=== PATIENT | male | born 1980 | race African-American/Black ===

== ENCOUNTER 2020-06-28 09:24 | Inpatient (IN) | payer OTHER, MEDICAID, SELFPAY ==
[~2020-06-28] VITALS: Ht 175.3 cm; Wt 77.1 kg
--- NOTE | 2020-06-28 09:27 | NUR ---
PT AMBULATED TO BED 11 WITH STEADY GAIT
[2020-06-28 09:31] VITALS: BP 144/106
--- NOTE | 2020-06-28 09:34 | NUR ---
39 Y/O MALE BIB SELF C/O CHEST PAIN, SOB X YESTERDAY. PT WENT TO [facility] 06/25 FOR SAME COMPLAINT AND WAS DISCHARGED. PT RATES PAIN 7/10 THAT IS PRESSURE LIKE AND STATES IT FEELS LIKE "SOMEONE IS SITTING ON MY CHEST" AND NONRADIAITING. PT ALSO C/O N/V AND PAIN TO RIGHT SIDE OF NECK. SPO2 100% ON RA. CAP REFILL <3 SECONDS WITH NO EDEMA NOTED. ABD IS ROUND/ASCITIC WITH ACTIVE BOWEL SOUNDS X4 QUADS. PT A/O X4 WITH EVEN AND UNLABORED RESPIRATIONS. PT IN GOWN ATTACHED TO CAR HOPPER. PT LAYING IN BED WITH HOB ELEVATED, BRAKES LOCKED, X1 SIDERAIL UP. PMH:CHF, HTN ALLERGIES:MISOPROSTOL
--- NOTE | 2020-06-28 09:35 | NUR ---
DR DANIELS AT BEDSIDE EXAMINING PATIENT
[2020-06-28] MEDS ORDERED: ASPIRIN 325 MG TAB PO ONE (09:40)
[2020-06-28] MEDS ORDERED: NITROGLYCERIN 0.4 MG TAB SL ONE (09:40)
[2020-06-28] MEDS ORDERED: FUROSEMIDE 40 MG/4 ML VIAL IVP ONE (09:40)
--- NOTE | 2020-06-28 09:47 | NUR ---
LAB AT BEDSIDE FOR BLOOD DRAW
[2020-06-28 09:59] LABS: BASOPHILS % (AUTO) 0.4 % (0.0-2.0); EOSINOPHILS # (AUTO) 0.1 K/uL (0-0.4); EOSINOPHILS % (AUTO) 2.7 % (0.0-4.0); HEMATOCRIT 39.3 % (36-52); HEMOGLOBIN 12.5 g/dL (12.0-18.0); LYMPHOCYTES % (AUTO) 21.4 % (20.5-51.1); MEAN CORPUSCULAR HEMOGLOBIN 25 pg (27-31); MEAN CORPUSCULAR HGB CONC 32 g/dL (33-37); MEAN CORPUSCULAR VOLUME 77.1 fL (80-94); MONOCYTES # (AUTO) 0.9 K/uL (0.8-1.0); MONOCYTES % (AUTO) 19.4 % (1.7-9.3); NEUTROPHILS # (AUTO) 2.6 K/uL (1.8-7.7); NEUTROPHILS % (AUTO) 56.1 % (42.2-75.2); PLATELET COUNT (AUTO) 203 K/uL (140-450); RED CELL DISTRIBUTION WIDTH 19.9 % (11.6-13.7); WHITE BLOOD COUNT (AUTO) 4.6 K/uL (4.8-10.8)
[2020-06-28 10:05] LABS: ANION GAP 13.1 (8-16); CARBON DIOXIDE 24.8 mmol/L (21-32); CREATININE 1.4 mg/dL (0.6-1.3); POTASSIUM 3.9 mmol/L (3.5-5.1)
--- NOTE | 2020-06-28 10:20 | NUR ---
PT VOIDED 400ML ORANGE COLORED URINE. DR DANIELS MADE AWARE. URINE SAMPLE WALKED TO LAB ALONG WITH TOÑO LOREDO SAMPLE.
--- NOTE | 2020-06-28 10:31 | NUR ---
CRITICAL LAB VALUE: TROPONIN 0.081. DR DANIELS MADE AWARE
--- NOTE | 2020-06-28 10:31 | NUR ---
Dariusz toney in ED - 06/28/20 at 1335 by [email or web address] CRITICAL LAB: TROPONIN 0.08. DR DANIELS MADE AWARE
[2020-06-28] MEDS ORDERED: ATOR40TA PO (10:40)
[2020-06-28] MEDS ORDERED: FURO-570 PO (10:40)
[2020-06-28] MEDS ORDERED: LOSA100T1 PO (10:40)
[2020-06-28] MEDS ORDERED: SPIMDI INH (10:40)
[2020-06-28] MEDS ORDERED: ISOS10TA9 PO (10:40)
[2020-06-28] MEDS ORDERED: POTA10TE30 PO (10:40)
[2020-06-28] MEDS ORDERED: CARV12.5 PO (10:40)
[2020-06-28 11:44] LABS: APPEARANCE,URINE CLEAR (CLEAR); BILIRUBIN,URINE NEGATIVE (NEGATIVE); BLOOD, URINE TRACE-I (NEGATIVE); COLOR,URINE YELLOW (YELLOW); LEUKOCYTE ESTERASE ,URINE NEGATIVE (NEGATIVE); NITRITE, URINE NEGATIVE (NEGATIVE); UGLUCOSE NEGATIVE (NEGATIVE)
[2020-06-28 11:46] LABS: RBC,URINE NONE SEEN /HPF (0-5); WBC,URINE NONE SEEN /HPF (0-5)
--- NOTE | 2020-06-28 11:55 | NUR ---
PT C/O 7/[address] DANIELS MADE AWARE AND ORDERED 2ND DOSE OF NITRO. 0.4MG NITRO GIVEN SL. BP: 141/109 HR 105
--- NOTE | 2020-06-28 12:01 | NUR ---
PT REPORTS CHEST PAIN IS NOW 2-3. DR DANIELS MADE AWARE. HOLDING 3RD DOSE OF NITRO. BP:137/101 HR:91
--- NOTE | 2020-06-28 13:01 | NUR ---
EMPTIED 650ML OF CLEAR YELLOW URINE.
--- NOTE | 2020-06-28 13:34 | NUR ---
GAVE REPORT TO GALO THORNTON FOR ADMISSION TO TELEMETRY 120B. WILL CALL FOR ETA
--- NOTE | 2020-06-28 13:52 | NUR ---
DR. MACHADO (DETAIL DRAFTER) AT BEDSIDE EVALUATING PATIENT.
[2020-06-28] MEDS ORDERED: ACETAMINOPHEN 325 MG TAB PO PRN (14:05)
[2020-06-28] MEDS ORDERED: ONDANSETRON 4 MG/2 ML VIAL IM/IVP PRN (14:05)
[2020-06-28] MEDS ORDERED: guaiFENesin DM 200/20 MG-10 ML 10 ML UDC PO PRN (14:05)
[2020-06-28] MEDS ORDERED: NITROGLYCERIN 0.4 MG TAB SL PRN (14:05)
[2020-06-28] MEDS ORDERED: POTASSIUM CHLORIDE 10 MEQ TABER PO PRN (14:05)
[2020-06-28] MEDS ORDERED: DOCUSATE SODIUM 100 MG GELCAP PO PRN (14:05)
[2020-06-28] MEDS ORDERED: HYDROcodone/APAP 7.5/325 MG 1 TAB PO PRN (14:05)
--- NOTE | 2020-06-28 14:05 | NUR ---
PT GIVEN CARDIAC DIET LUNCH TRAY
--- NOTE | 2020-06-28 14:15 | NUR ---
RECEIVED TELEPHONE REPORT FROM ER NURSE NIDHI THORNTON.
[2020-06-28 14:37] LABS: FREE T4 (FREE THYROXINE) 1.04 ng/dL (0.76-1.46); MAGNESIUM 1.9 mg/dL (1.8-2.4); PHOSPHORUS 3.3 mg/dL (2.5-4.9); THYROID STIMULATING HORMONE 1.57 uIU/mL (0.34-3.74)
--- NOTE | 2020-06-28 14:37 | NUR ---
Patient will be admitted to care of DR MARTIN CARRILLO. Admited to TELEMETRY. Will go to room 120B. Belongings list completed. Report to GALO THORNTON.
[2020-06-28 14:39] LABS: PROTHROMBIN TIME 13.3 secs (10.8-13.4)
[2020-06-28 14:40] VITALS: BP 149/102
--- NOTE | 2020-06-28 14:40 | NUR ---
PT ARRIVED AT UNIT VIA GURNEY, AMBULATED TO BED, TOLERATED WELL, PT ON ROOM AIR, NO SOB NOTED, IV TO LEFT AC 18G PATENT INTACT, SL, PT DENIES ANY PAIN AT THIS MOMENT, INITIAL ASSESSMENT DONE, ALL SAFETY PRECAUTION DONE, MRSA SWAB TAKEN, V/S TAKEN, WNL, ORIENT PT TO ROOM, BED, CALL LIGHT, WILL CONTINUE TO MONITOR.
[2020-06-28 14:55] LABS: BARBITURATE, URINE NEGATIVE ng/ml (NEG <=200); BENZODIAZEPINE, URINE NEGATIVE ng/mL (NEG <=200); CANNABINOID, URINE POSITIVE ng/mL (NEG <=50); COCAINE, URINE NEGATIVE ng/mL (NEG <=300); OPIATE, URINE NEGATIVE ng/mL (NEG <=2000); PHENCYCLIDINE SCREEN,URINE NEGATIVE ng/mL (NEG <=25)
[2020-06-28 16:00] VITALS: BP 133/96
[2020-06-28] MEDS: FUROSEMIDE 40 MG/4 ML VIAL IVP SCH (16:34)
--- NOTE | 2020-06-28 16:37 | NUR ---
DUE MEDICATIONS LASIX GIVEN PT BP 139/101, HR 107, CONFIRMED WITH PHARMACY WHO STATED PER DR GERARDO GORDON TO GIVE BOTH FUROSEMIDE IV AND PO AT THE SAME TIME. PT TOLERATED WELL. WILL CONTINUE TO MONITOR.
[2020-06-28] MEDS ORDERED: FUROSEMIDE 40 MG TAB PO SCH (17:00)
--- NOTE | 2020-06-28 19:15 | NUR ---
RECEIVED BEDSIDE REPORT FROM DAY SHIFT NURSE FOR CONTINUITY OF CARE. PT IS AWAKE AND ALERT, A&OX4. SITTING UP IN HIGH FOWLERS POSITION IN SIDE LYING POSITION. ON RA WITH BREATHING UNLABORED. ON TELE MONITORING. PT IS AMBULATORY INDEPENDENTLY. SKIN IS WARM, DRY, AND INTACT. IV IS IN THE LEFT AC 18 GAUGE SALINE LOCKED. UNIVERSAL AND STANDARD PRECAUTIONS IN PLACE. PT IS STABLE. PLAN OF CARE DISCUSSED.
--- NOTE | 2020-06-28 19:27 | NUR ---
ENDORSED PT TO SURGICAL ENDOSCOPIST NURSE SHANTEL THORNTON FOR CONTINUOUS OF CARE.
[2020-06-28 20:00] VITALS: BP 121/83
[2020-06-28] MEDS: ATORVASTATIN 20 MG TAB PO SCH (20:15)
--- NOTE | 2020-06-28 20:15 | NUR ---
SPOKE TO STEPHANIE KELLY, WITH PERMISSION OF PT. UPDATED HER ON PLAN OF CARE. ALL QUESTIONS ANSWERED.
[2020-06-28] MEDS: carvediloL 12.5 MG TAB PO SCH (20:16)
[2020-06-28] MEDS ORDERED: FUROSEMIDE 40 MG/4 ML VIAL IVP SCH (21:00)
[2020-06-28] MEDS ORDERED: ZOLPIDEM 5 MG TAB PO PRN (21:00)
--- NOTE | 2020-06-28 21:30 | NUR ---
PT IS AWAKE AND WATCHING TV IN BED. DENIES PAIN OR SOB. O2 SAT IS 100%. NO RESPIRATORY DISTRESS NOTED. PT WAS EDUCATED ON THE FLUID RESTRICTION OF 1,000 ML A DAY AND PT VERBALIZED UNDERSTANDING. PT IS STABLE.
--- NOTE | 2020-06-28 23:00 | NUR ---
PT IS SITTING UP AT CHAIR AT BEDSIDE. PT IS WATCHING TV AND DENIES ANY COMPLAINTS AT THIS TIME.NO DISTRESS NOTED. PT IS STABLE.
[2020-06-29] VITALS: BP 136/74
--- NOTE | 2020-06-29 00:23 | NUR ---
PT WAS GIVEN A SANDWICH AND APPLE JUICE REQUESTED. REMINDED PT ABOUT FLUID RESTRICTION OF 1,000 ML A DAY AND HE VERBALIZED UNDERSTANDING. PT IS STABLE AT THIS TIME. BREATHING IS UNLABORED. DENIES ANY PAIN. WILL CONTINUE TO MONITOR.
--- NOTE | 2020-06-29 02:07 | NUR ---
PT IS SLEEPING IN SIDE LYING POSITION. NO DISTRESS NOTED. CHEST RISE AND FALL IS SYMMETRICAL. LIGHT IS ON FOR VISIBILITY AND BED IS IN THE LOWEST POSITION. WILL CONTINUE TO MONITOR.
[2020-06-29 04:00] VITALS: BP 121/89
--- NOTE | 2020-06-29 04:00 | NUR ---
ROUNDED ON PT. HE IS ASLEEP. BREATHING IS UNLABORED. NO SIGN OF PAIN. CALL LIGHT WITHIN REACH. WILL CONTINUE TO MONITOR.
[2020-06-29 05:43] LABS: BASOPHILS % (AUTO) 0.8 % (0.0-2.0); EOSINOPHILS # (AUTO) 0.2 K/uL (0-0.4); EOSINOPHILS % (AUTO) 4.5 % (0.0-4.0); HEMATOCRIT 35.9 % (36-52); HEMOGLOBIN 11.5 g/dL (12.0-18.0); LYMPHOCYTES % (AUTO) 19.6 % (20.5-51.1); MEAN CORPUSCULAR HEMOGLOBIN 25 pg (27-31); MEAN CORPUSCULAR HGB CONC 32 g/dL (33-37); MEAN CORPUSCULAR VOLUME 77.1 fL (80-94); MONOCYTES # (AUTO) 0.8 K/uL (0.8-1.0); MONOCYTES % (AUTO) 16.4 % (1.7-9.3); NEUTROPHILS % (AUTO) 58.7 % (42.2-75.2); PLATELET COUNT (AUTO) 187 K/uL (140-450); RED BLOOD CELL COUNT(AUTO) 4.66 MIL/uL (4.20-6.10); RED CELL DISTRIBUTION WIDTH 20.2 % (11.6-13.7); WHITE BLOOD COUNT (AUTO) 5.2 K/uL (4.8-10.8)
[2020-06-29 05:46] LABS: ANION GAP 10.9 (8-16); CREATININE 1.6 mg/dL (0.6-1.3); POTASSIUM 3.9 mmol/L (3.5-5.1)
--- NOTE | 2020-06-29 07:05 | NUR ---
RT CALLED TO THE BEDSIDE. INSTRUCTED TO PLACE ON OXYGEN AND THEY WOULD ARRIVE SHORTLY.
[2020-06-29 07:08] LABS: T4 (THYROXINE) 6.3 ug/dL (4.5-12.0)
--- NOTE | 2020-06-29 07:08 | NUR ---
PATIENT REPORTED SOB, LABORED BREATHING NOTED. RT NOTIFIED. PATIENT PLACED ON PORTABLE OXYGEN AT 4L NC. OXYGEN SAT AFTER OXYGEN APPLIED IS AT 100%. PATIENT EDUCATED ON LAYING ON HIS SIDE TO HELP WITH THE ASCITES.
--- NOTE | 2020-06-29 07:20 | NUR ---
ENDORSED PT TO DAY SHIFT NURSE FOR CONTINUITY OF CARE. PT IS AWAKE AND ALERT. PT IS CALM. O2 SAT IS 100% ON 4L O2 NC. PLAN OF CARE DISCUSSED.
[2020-06-29 08:00] VITALS: BP 136/106
--- NOTE | 2020-06-29 08:05 | NUR ---
RECEIVED REPORT FORM ER NURSE AT 0805 PATIENT ALERT AND AWAKE X4. RESPIRATION EVEN AND UNLABORED AT ROOM AIR . IV LC ON FFA 18 G . BED IN LOWER POSITION AND CLL LIGHT WITHIN REACH. Addendum: 06/29/20 at 0822 by Madie Ye RN WRONG ENTRY
[2020-06-29] MEDS ORDERED: ISOSORBIDE DINITRATE 10 MG TAB PO SCH (09:00)
--- NOTE | 2020-06-29 09:00 | NUR ---
SCHEDULE MEDICATION GIVEN PER MD ORDERED PATIENT TOLERATED WELL.
[2020-06-29] MEDS: ECOTRIN 81 MG TABEC PO SCH (09:24)
[2020-06-29] MEDS: LOSARTAN 25 MG TAB PO SCH (09:24)
[2020-06-29] MEDS: FUROSEMIDE 40 MG/4 ML VIAL IVP SCH ×2 (09:25→09:41)
[2020-06-29] MEDS: carvediloL 12.5 MG TAB PO SCH ×2 (09:39→20:24)
[2020-06-29] MEDS: PANTOPRAZOLE 40 MG TABEC PO SCH (09:39)
--- NOTE | 2020-06-29 10:15 | NUR ---
PT RESTING IN BED. NO SIGNS OF DISTRESS. WILL CONTINUE TO MONITOR
--- NOTE | 2020-06-29 11:05 | NUR ---
ADMINISTERED SCHED MED PRESCRIBED PER MD ORDER. PT TOLERATED WELL. MEDICATION EDUCATION PERFORMED. PT VERBALIZED UNDERSTANDING. SAFETY MEASURES IN PLACE. WILL CONTINUE TO MONITOR
[2020-06-29 12:00] VITALS: BP 139/80
--- NOTE | 2020-06-29 12:00 | NUR ---
VITAL SIGNS OBTAINED. PT IS STABLE. WILL CONTINUE TO MONITOR
--- NOTE | 2020-06-29 14:05 | NUR ---
PATIENT RESTING IN BED ,NO RESPIRATORY DISTRESS NOTED. SAFETY MEASURES IN PLACE. WILL CONTINUE TO MONITOR
--- NOTE | 2020-06-29 14:45 | NUR ---
DC PLANNIN YRS OLD MALE PATIENT WAS ADMITTED FROM HOME WITH A DX OF CHF, CHEST PAIN PT HAS A HX OF CHF HTN AND METH USE. CXR SHOWED CARDIOMEGALY WITH PULMONARY VASCULAR CONGESTION. RAPID COVID TEST NEGATIVE. STARTED DIURESIS THERAPY, IV ABX ROCEPHIN AND CONTINUED HOME MEDS. CONSULTED WITH CALL CENTER TRAINER. DARRIUS EID PT DOESN'T LIVE THERE AND HE IS A HOMELESS. SPOOL CLEANER HAND TO EVALUATE FOR HOMELESSNESS. CM TO FOLLOW Addendum: 06/30/20 at 1025 by Majo Noel CM GRISEL BELT PUNCHER: CAN NOT SCHEDULE PATIENT A FOLLOW UP APPOINTMENT. PATIENT DOES NOT HAVE A PCP ASSIGNED TO HIM AND HE IS HOMELESS. Addendum: 07/01/20 at 1038 by Majo Noel CM GRISEL SONG: PROVIDED PATIENT HOMELESS RESOURCES
--- NOTE | 2020-06-29 15:45 | NUR ---
PATIENT RESTING IN BED ,NO RESPIRATORY DISTRESS NOTED. SAFETY MEASURES IN PLACE. WILL CONTINUE TO MONITOR
[2020-06-29 16:00] VITALS: BP 123/79
--- NOTE | 2020-06-29 17:15 | NUR ---
PATIENT RESTING IN BED ,NO RESPIRATORY DISTRESS NOTED. SAFETY MEASURES IN PLACE. WILL CONTINUE TO MONITOR
--- NOTE | 2020-06-29 18:45 | NUR ---
PATIENT RESTING IN BED ,NO RESPIRATORY DISTRESS NOTED. SAFETY MEASURES IN PLACE. WILL CONTINUE TO MONITOR
--- NOTE | 2020-06-29 19:23 | NUR ---
ENDORSED TO TAPE DECK INSTALLER NURSE AT BED SIDE FOR CONTINUE FOR CARE . PATIENT IS STABLE.
--- NOTE | 2020-06-29 19:30 | NUR ---
RECEIVED REPORT FROM ZEENAT THORNTON DAYSHIFT NURSE AT BEDSIDE FOR CONTINUITY OF CARE, PT IN STABLE CONDITION.
[2020-06-29 20:00] VITALS: BP 133/90
--- NOTE | 2020-06-29 20:00 | NUR ---
PT IN BED RESTING WITH HOB UP, HE IS AROUSABLE TO NAME. PT IS AOX4 WITH 2 LITERS N/C FOR COMFORT. PT SKIN INTACT WITH LAC 18 GUAGE WHICH IS SALINE LOCKED AT THIS TIME. V/S FOLLOWS: T 97.7 P 100 R 18 B/P 133/90 02 95% WITH 2 LITERS VIA N/C. PT RESPIRATIONS ARE EVEN AND UNLABORED WITH LUNG SOUNDS DIMINISHED. PT DENIES PAIN AT THIS TIME ALL UNIVERSAL FALL PRECAUTIONS IN PLACE.
[2020-06-29] MEDS: ATORVASTATIN 20 MG TAB PO SCH (20:24)
--- NOTE | 2020-06-29 20:35 | NUR ---
PT SITTING UP IN BED WITH 2 LITERS ON RESPIRATIONS EVEN AND UNLABORED. PT GIVEN ORDERED PO COREG AND LIPITOR WELL HEPARIN SQ SHOT. EDUCATION REGARDING MEDICATION AND IT PURPOSES PROVIDED AT BEDSIDE. PT VERBALIZED UNDERSTANDING. PT ALSO GIVEN PO NORCO FOR C/O OF 4/10 CHEST PAIN . ALL OTHER REQUESTS ATTENDED BY STAFF AND ALL UNIVERSAL FALLS PRECAUTIONS IN PLACE. WILL CONTINUE TO MONITOR FOR PAIN RELIEF.
--- NOTE | 2020-06-29 22:30 | NUR ---
ROUNDS DONE, PT SITTING UP ON THE SIDE OF BED, WITHOUT ANY SUPPLEMENTAL 02 ON. PT DENIES ANY PAIN, HE WAS OFFERED AMBIEN FOR SLEEPING, BUT HE SAID "NOT YET." ALL UNIVERSAL FALLS PRECAUTIONS IN PLACE.
[2020-06-30] VITALS: BP 113/77
--- NOTE | 2020-06-30 00:30 | NUR ---
PT IN BED SLEEPING WITH 2 LITERS VIA MN/C, V/S FOLLOWS: T 97.6 P 75 R 22 B/P 113/77 02 99%. NO S/S OF PAIN OR DISTRESS NOTED, ALL ORDERED PRECAUTIONS IN PLACE.
--- NOTE | 2020-06-30 03:00 | NUR ---
ROUNDS DONE, PT IN BED ASLEEP, NO S/S OF PAIN OR DISTRESS NOTED. 02 RUNNING AT 2 LITERS VIA N/C. ALL ORDERED PRECAUTIONS IN PLACE.
[2020-06-30 04:00] VITALS: BP 95/69
--- NOTE | 2020-06-30 05:00 | NUR ---
ROUNDS DONE PT IN BED RESTING WITH EYES CLOSED BUT AROUSABLE TO NAME AND TOUCH. PT DENIES ANY PAIN , V/S FOLLOWS: T 97.5 P 88 R 18 B/P 95/69 02 99%. ALL ORDERED PRECAUTIONS IN PLACE.
[2020-06-30 05:29] LABS: BASOPHILS # (AUTO) 0.1 K/uL (0.00-0.22); BASOPHILS % (AUTO) 1.5 % (0.0-2.0); EOSINOPHILS # (AUTO) 0.1 K/uL (0-0.4); EOSINOPHILS % (AUTO) 3.3 % (0.0-4.0); HEMATOCRIT 36.2 % (36-52); HEMOGLOBIN 11.4 g/dL (12.0-18.0); LYMPHOCYTES # (AUTO) 1.5 K/uL (2.0-11.5); LYMPHOCYTES % (AUTO) 32.8 % (20.5-51.1); MEAN CORPUSCULAR HEMOGLOBIN 25 pg (27-31); MEAN CORPUSCULAR HGB CONC 32 g/dL (33-37); MEAN CORPUSCULAR VOLUME 77.4 fL (80-94); MONOCYTES # (AUTO) 0.8 K/uL (0.8-1.0); MONOCYTES % (AUTO) 17.8 % (1.7-9.3); NEUTROPHILS % (AUTO) 44.6 % (42.2-75.2); PLATELET COUNT (AUTO) 198 K/uL (140-450); RED BLOOD CELL COUNT(AUTO) 4.67 MIL/uL (4.20-6.10); RED CELL DISTRIBUTION WIDTH 20.1 % (11.6-13.7); WHITE BLOOD COUNT (AUTO) 4.5 K/uL (4.8-10.8)
--- NOTE | 2020-06-30 06:00 | NUR ---
PT AWAKE AND SITTING UP IN BED WITHOUT 02 RR EVEN AND UNLABORED. PT GIVEN REQUESTED SNACKS. ALL ORDERED PRECAUTIONS IN PLACE.
[2020-06-30 07:00] LABS: ANION GAP 10.5 (8-16); CARBON DIOXIDE 27.5 mmol/L (21-32); CREATININE 1.7 mg/dL (0.6-1.3)
--- NOTE | 2020-06-30 07:10 | NUR ---
RECEIVED REPORT FROM NIGHT NURSE PATIENT IS AAOX4 SITTING ON 2L OXYGEN VIA NC SATURATION AT 95-99%, AMBULATORY,LAST BOWEL MOVEMENT 06/30/20, ON STRICT I&O, SKIN INTACT, IV INTACT ON LEFT AC SALINE LOCK, CONTINENT,PENDING FOR ECHOCARDIOGRAM. SAFETY MEASURES IN PLACE AND CALL LIGHT WITHIN REACH. WILL CONTINUE TO MONITOR.
[2020-06-30 08:00] VITALS: BP 116/77
[2020-06-30] MEDS: ECOTRIN 81 MG TABEC PO SCH (08:46)
[2020-06-30] MEDS: PANTOPRAZOLE 40 MG TABEC PO SCH (08:46)
[2020-06-30] MEDS: LOSARTAN 25 MG TAB PO SCH (08:47)
[2020-06-30] MEDS: FUROSEMIDE 40 MG/4 ML VIAL IVP SCH ×2 (08:47→17:01)
[2020-06-30] MEDS: carvediloL 12.5 MG TAB PO SCH ×2 (08:47→20:40)
--- NOTE | 2020-06-30 08:55 | NUR ---
MEDICATION DUE GIVEN CHECK VITAL SIGNS PRIOR TO BP MEDICATION BP 116/77 MI 78 NO DISTRESS AND NO CHEST PAIN, DENIES ANY PAIN ON 2 LPM OXYGEN VIA NC. SAFETY MEASURES IN PLACE AND CALL LIGHT WITHIN REACH. WILL CONTINUE TO MONITOR.
--- NOTE | 2020-06-30 09:19 | NUR ---
PATIENT HAS BEEN SCREENED AND CATEGORIZED MODERATE NUTRITION RISK. PATIENT WILL BE SEEN WITHIN 3-5 DAYS OF ADMISSION. 07/01/20 07/03/[address]
--- NOTE | 2020-06-30 10:32 | NUR ---
MEDICATIONS DUE GIVEN INFUSING WELL.
[2020-06-30 12:00] VITALS: BP 113/83
--- NOTE | 2020-06-30 12:00 | NUR ---
MADE ROUNDS PATIENT IS RESTING VITAL SIGNS TAKEN BP 113/83 PA 80 NO CHEST PAIN AND SOB NOTED PT IS STABLE,
--- NOTE | 2020-06-30 15:00 | NUR ---
PATIENT IS RESTING AND EATING NO DISTRESS NOTED.
[2020-06-30 16:00] VITALS: BP 95/69
--- NOTE | 2020-06-30 17:04 | NUR ---
MEDICATION DUE GIVEN CHECK VITAL SIGNS BP 116/77 NJ 75 PT IS STABLE AND NO DISTRESS NOTED.
--- NOTE | 2020-06-30 19:23 | NUR ---
ENDORSED TO NIGHT NURSE FOR CONTINUITY OF CARE. PT IS STABLE.
--- NOTE | 2020-06-30 19:31 | NUR ---
RECEIVED REPORT FROM ANA MARIA THORNTON DAYSHIFT NURSE AT BEDSIDE FOR CONTINUITY OF CARE, PT IN STABLE CONDITION. PT LYING IN BED WITH 02 AT 2 LITERS VIA N/C. NO S/S OF PAIN OR DISTRESS. HE HAS A LEFT AC 18 GUAGE INTACT AND SALINE LOCKED. ALL UNIVERSAL FALLS PRECAUTIONS IN PLACE.
[2020-06-30 20:00] VITALS: BP 116/86
--- NOTE | 2020-06-30 20:00 | NUR ---
PT IN BED, HOB UP 45%, HE IS AOX4 AND ON ROOM AIR RESPIRATIONS ARE EVEN AND UNLABORED. ALL REQUESTED NEEDS ATTENDED. V/S FOLLOWS: T 97.1 P 92 R 18 B/P 116/86 02 100%. PT DENIES ANY PAIN OR DISCOMFORT ALL UNIVERSAL FALLS PRECAUTIONS IN PLACE.
[2020-06-30] MEDS: ATORVASTATIN 20 MG TAB PO SCH (20:40)
--- NOTE | 2020-06-30 21:00 | NUR ---
PT RECEIVED ORDERED MEDICATION OF COREG, LIPITOR AND HEPARIN SQ SHOT. EDUCATION REGARDING MEDICATION PROVIDED AT BEDSIDE, PT VERBALIZED UNDERSTANDING. ALL REQUESTED NEEDS ATTENDED BY STAFF AND ALL UNIVERSAL FALLS PRECAUTIONS IN PLACE.
--- NOTE | 2020-06-30 23:00 | NUR ---
PT LYING IN BED EYES CLOSED, BUT AROUSABLE TO NAME. HE IS ON ROOM AIR AND RESPIRATIONS EVEN AND UNLABORED. ALL REQUESTED NEEDS ATTENDED BY STAFF. AND ALL UNIVERSAL PRECAUTIONS IN PLACE.
[2020-07-01] VITALS: BP 123/83
--- NOTE | 2020-07-01 00:39 | NUR ---
PT SITTING UP IN BED ON ROOM AIR, RR EVEN AND UNLABORED. PT GIVEN REQUESTED AMBIEN AND SNACK TO HELP HIM SLEEP. V/S FOLLOWS: T 97.4 P 82 R 18 B/P 123/83 02 97%. ALL ORDERED PRECAUTIONS IN PLACE.
[2020-07-01 04:00] VITALS: BP 112/78
--- NOTE | 2020-07-01 04:45 | NUR ---
PT IN BED LYING DOWN HOB UP 45% PT IS ON ROOM AIR. NO S/S OF PAIN OR DISTRESS NOTED. V/S FOLLOWS: T 97.4 P 81 R 20 B/P 112/78 02 99% ON ROOM AIR. NO C/O VOICED AND ALL ORDERED PRECAUTIONS IN PLACE.
[2020-07-01 05:14] LABS: BASOPHILS # (AUTO) 0.1 K/uL (0.00-0.22); BASOPHILS % (AUTO) 1.5 % (0.0-2.0); EOSINOPHILS # (AUTO) 0.2 K/uL (0-0.4); EOSINOPHILS % (AUTO) 4.6 % (0.0-4.0); HEMATOCRIT 38.3 % (36-52); HEMOGLOBIN 12.2 g/dL (12.0-18.0); LYMPHOCYTES # (AUTO) 1.4 K/uL (2.0-11.5); LYMPHOCYTES % (AUTO) 27.7 % (20.5-51.1); MEAN CORPUSCULAR HEMOGLOBIN 25 pg (27-31); MEAN CORPUSCULAR HGB CONC 32 g/dL (33-37); MEAN CORPUSCULAR VOLUME 76.7 fL (80-94); MONOCYTES # (AUTO) 0.9 K/uL (0.8-1.0); MONOCYTES % (AUTO) 17.8 % (1.7-9.3); NEUTROPHILS # (AUTO) 2.4 K/uL (1.8-7.7); NEUTROPHILS % (AUTO) 48.4 % (42.2-75.2); PLATELET COUNT (AUTO) 203 K/uL (140-450); RED BLOOD CELL COUNT(AUTO) 4.99 MIL/uL (4.20-6.10); RED CELL DISTRIBUTION WIDTH 20.1 % (11.6-13.7)
[2020-07-01 05:23] LABS: CARBON DIOXIDE 28.9 mmol/L (21-32); CREATININE 1.8 mg/dL (0.6-1.3); POTASSIUM 3.9 mmol/L (3.5-5.1)
--- NOTE | 2020-07-01 07:25 | NUR ---
PT RECEIVED FROM HIGHWAY TRAFFIC CONTROL TECHNICIAN RN. PT RESTING IN BED NO S/S OF DISTRESS AT THIS TIME . PT ABLE TO MAKE NEEDS KNOWN.
[2020-07-01 08:00] VITALS: BP 120/85
[2020-07-01] MEDS: ECOTRIN 81 MG TABEC PO SCH (08:33)
[2020-07-01] MEDS: PANTOPRAZOLE 40 MG TABEC PO SCH (08:33)
[2020-07-01] MEDS: carvediloL 12.5 MG TAB PO SCH (08:33)
[2020-07-01] MEDS: LOSARTAN 25 MG TAB PO SCH (08:34)
--- NOTE | 2020-07-01 08:49 | NUR ---
MEDICATIONS GIVEN PER MD ORDER. PT EDUCATED AND VERBALIZED UNDERSTANDING. PT TOLERATED. NO S/S OF DISTRESS AT THIS TIME. CALL LIGHT WITHIN REACH. ALL SAFETY MEASURES ARE IN PLACE.
--- NOTE | 2020-07-01 10:02 | NUR ---
PT RESTING IN BED. PT REQUESTED SNACKS. SNACKS PROVIDED.
[2020-07-01] MEDS ORDERED: ISOS10TA9 PO (10:37)
[2020-07-01] MEDS ORDERED: FURO-570 PO (10:37)
[2020-07-01] MEDS ORDERED: LOSA100T1 PO (10:37)
[2020-07-01] MEDS ORDERED: ATOR40TA PO (10:37)
[2020-07-01] MEDS ORDERED: CARV12.5 PO (10:37)
[2020-07-01 11:33] VITALS: BP 120/85
[2020-07-01 12:00] VITALS: BP 121/75
--- NOTE | 2020-07-01 12:37 | NUR ---
PT DISCHARGE INSTRUCTIONS COMPLETE PT VERBALIZED UNDERSTANDING. ALL QUESTIONS ANSWERED . PT REQUESTED TO CALL NEXT OF [facility] TO [facility] TRANSPORTATION. [facility] CALLED . YARED STATED THAT SHE WOULD CALL BACK AND ARRANGE TRANSPORTATION. PT AWARE. PT STATED IF SHE DOES NOT PICK HIM UP HE WOULD LIKE BUS PASSES.
--- NOTE | 2020-07-01 13:49 | NUR ---
PT PROVIDED MEAL , AND A PACKET WITH RESOURCES AND SHELTERS PLACES TO CALL. PT VERBALIZED UNDERSTANDING. BUS PASS WAS GIVEN . PT WAS EDUCATED ON ALL THE RESOURCES.
--- NOTE | 2020-07-01 14:15 | NUR ---
PT LEFT UNIT VIA WHEELCHAIR. PT AMBULATED OFF WHEEL CHAIR TOWARDS BUS STOP. PT TOLERATED WELL. IV CANULA INTACT WITH REMOVAL. ID BAND REMOVED.
[2020-07-01] MEDS ORDERED: FUROSEMIDE 40 MG TAB PO SCH (17:00)
== END 2020-07-01 14:15 | disposition home or self-care (01) | DRG 871 ==
LOC: MED 09:24 → MTU 13:59
PROVIDERS: ADMIT Family Medicine; ATTEND Family Medicine
DX: A41.9 Sepsis, unspecified organism (principal); I21.A1 Myocardial infarction type 2; I50.43 Acute on chronic combined systolic (congestive) and diastolic (congestive) heart failure; J69.0 Pneumonitis due to inhalation of food and vomit; N17.0 Acute kidney failure with tubular necrosis; J96.00 Acute respiratory failure, unspecified whether with hypoxia or hypercapnia; G92 Toxic encephalopathy; I42.8 Other cardiomyopathies; I13.0 Hypertensive heart and chronic kidney disease with heart failure and stage 1 through stage 4 chronic kidney disease, or unspecified chronic kidney disease; Z20.822 Contact with and (suspected) exposure to COVID-19; F15.10 Other stimulant abuse, uncomplicated; E78.5 Hyperlipidemia, unspecified; F17.210 Nicotine dependence, cigarettes, uncomplicated; F12.10 Cannabis abuse, uncomplicated; N18.9 Chronic kidney disease, unspecified; I08.1 Rheumatic disorders of both mitral and tricuspid valves; Z71.51 Drug abuse counseling and surveillance of drug abuser; Z71.6 Tobacco abuse counseling
CPT/HCPCS: 36415; 71045; 80048; 80305; 81001; 82150; 83036; 83690; 83735; 83880; 84100; 84436; 84439; 84443; 84479; 84484; 85025; 85610; 85730; 87081; 93005; 96374; 99285; J0696; J1644; J1940; J7060

== ENCOUNTER 2020-07-10 15:08 | Inpatient (IN) | payer OTHER, MEDICAID, SELFPAY ==
[~2020-07-10] VITALS: Ht 175.3 cm; Wt 86.2 kg
[~2020-07-10 15:08] MED LIST: ATOR40TA PO; CARV12.5 PO; FURO-570 PO; ISOS10TA9 PO; LOSA100T1 PO; POTA10TE30 PO; SPIMDI INH
[2020-07-10 15:12] VITALS: BP 140/108
--- NOTE | 2020-07-10 15:17 | NUR ---
PT TAKEN TO LOBBY IN W/C.
--- NOTE | 2020-07-10 15:30 | NUR ---
39 Y/O MALE C/O CHEST PAIN 10/ INTERMITTENT DESCRIBES "PULLING" X4DAYS. PT STATES HE HAS A HERNIA AND HAS APPOINTMENT WITH PCP ON 07/13/20 FOR POSSIBLE SURGERY BUT TODAY SYMPTOMS WORENED. PT STATES +N/V 2 TIMES TODAY, DENIES FEVER/CHILLS. ABDOMEN IS SOFT, ROUND, TENDER TO PALPATION IN EPIGASTRIC AREA. BOWEL SOUNDS PRESENT X4, LAST BM 07/09/20. PMH: HTN, HERNIA ALLERGIES: MISOPROSTOL
--- NOTE | 2020-07-10 16:01 | NUR ---
RUBY ON RAILS WEB DEVELOPER WITH PT IN TRIAGE.
[2020-07-10 16:10] LABS: BASOPHILS # (AUTO) 0.1 K/uL (0.00-0.22); EOSINOPHILS # (AUTO) 0.2 K/uL (0-0.4); EOSINOPHILS % (AUTO) 4.1 % (0.0-4.0); MEAN CORPUSCULAR HEMOGLOBIN 24 pg (27-31); RED BLOOD CELL COUNT(AUTO) 4.98 MIL/uL (4.20-6.10); RED CELL DISTRIBUTION WIDTH 20.2 % (11.6-13.7)
--- NOTE | 2020-07-10 16:16 | NUR ---
PT W/C ASSISTED TO ER BED 7.
[2020-07-10 16:18] LABS: BASOPHILS % (AUTO) 1.8 % (0.0-2.0); HEMATOCRIT 37.9 % (36-52); LYMPHOCYTES % (AUTO) 24.5 % (20.5-51.1); MEAN CORPUSCULAR HGB CONC 32 g/dL (33-37); MEAN CORPUSCULAR VOLUME 76.2 fL (80-94); NEUTROPHILS # (AUTO) 1.9 K/uL (1.8-7.7); NEUTROPHILS % (AUTO) 46.1 % (42.2-75.2); PLATELET COUNT (AUTO) 230 K/uL (140-450); WHITE BLOOD COUNT (AUTO) 4.2 K/uL (4.8-10.8)
[2020-07-10 16:29] LABS: MONOCYTES % (AUTO) 23.5 % (1.7-9.3)
[2020-07-10 16:34] LABS: ANION GAP 11.1 (8-16); CARBON DIOXIDE 26.3 mmol/L (21-32); CREATININE 1.7 mg/dL (0.6-1.3); POTASSIUM 4.4 mmol/L (3.5-5.1); TOTAL BILIRUBIN 1.5 mg/dL (0.0-1.0)
[2020-07-10] MEDS ORDERED: MORPHINE SULFATE 4 MG/ML SYR IVP ONE (16:40)
[2020-07-10] MEDS ORDERED: ONDANSETRON 4 MG/2 ML VIAL IVP ONE (16:40)
--- NOTE | 2020-07-10 16:41 | NUR ---
TROPONIN 0.076--CRITICAL VALUE RECEIVED FROM LAB. DR VOGEL MADE AWARE.
--- NOTE | 2020-07-10 16:52 | NUR ---
PATIENT TAKEN TO CT VIA JALIL
--- NOTE | 2020-07-10 18:00 | NUR ---
PT ALERT AND AWAKE, BREATHING EVEN AND UNLABORED, NO DISTRESS NOTED.
[2020-07-10] MEDS ORDERED: FUROSEMIDE 40 MG/4 ML VIAL IVP ONE (18:10)
[2020-07-10] MEDS ORDERED: ASPIRIN 81 MG TAB.CHEW PO ONE (18:10)
--- NOTE | 2020-07-10 18:12 | NUR ---
GERTRUDE WAS SWABBED AND DROPPED OFF AT LAB WITH PHLEB.
--- NOTE | 2020-07-10 19:14 | NUR ---
REPORT GIVEN TO AUTUMN THORNTON, TRANSFER OF CARE AT THIS TIME
--- NOTE | 2020-07-10 19:15 | NUR ---
RECEIVED REPORT FROM MILADYS THORNTON FOR CONTINUITY OF CARE
--- NOTE | 2020-07-10 20:46 | NUR ---
Patient will be admitted to care of DR. ABDALLA. Admited to TELEMETRY. Will go to room 112A. Belongings list completed. Report to AB RN. PT ACCOMPANIED BY RN AND EMT DURING TRANSFER VIA [place].PT ALERT AND AWAKE, BREATHING EVEN AND UNLABORED, NO DISTRESS NOTED.
--- NOTE | 2020-07-10 20:55 | NUR ---
ADMITTED THIS 39 YEAR OLD MALE FROM ER PER JALIL WITH CC OF CHEST PAIN, SOB, AND LEFT INGUINAL HERNIA, AMBULATED TO BED WITH STEADY GAIT, PUT ON O2 2L VIA NC, VITAL SIGNS TAKEN, AAOX4, SAFETY MEASURES DONE, PLAN OF CARE DISCUSSED, CALL LIGHT WITHIN REACH.
[2020-07-10 21:00] VITALS: BP 131/104
[2020-07-10] MEDS: HYDROcodone/APAP 5/325 MG 1 TAB TAB PO PRN (22:00)
--- NOTE | 2020-07-10 22:00 | NUR ---
MEDICATED PRN FOR LEFT GROIN PAIN WITH NORCO ORDERED, SANDWICH PROVIDED, TOLERATED WELL, ALL NEEDS ATTENDED.
[2020-07-10] MEDS ORDERED: ACETAMINOPHEN 325 MG TAB PO PRN (22:05)
[2020-07-10] MEDS ORDERED: MORPHINE SULFATE 2 MG/ML SYR IVP PRN (22:05)
[2020-07-10] MEDS ORDERED: LORazepam 2 MG/ML VIAL IM/IVP PRN (22:05)
[2020-07-10] MEDS ORDERED: HYDROcodone/APAP 5/325 MG 1 TAB TAB PO PRN (22:05)
[2020-07-10] MEDS ORDERED: ZOLPIDEM 5 MG TAB PO PRN (22:05)
[2020-07-10] MEDS: NACL 0.9% 1,000 ML IV SCH (23:03)
--- NOTE | 2020-07-10 23:10 | NUR ---
PT SLEEPING, EASILY AROUSABLE, NO DISTRESS NOTED, IVF OF NS AT 40ML STARTED, REPORT GIVEN TO RN AB FOR CONTINUITY OF CARE.
--- NOTE | 2020-07-10 23:15 | NUR ---
Assumed care of the patient from [employer]. Patient asleep at this time but easy to aroused. Not in any distress. No complain at this time. Call light within reach. Will continue POC and monitoring.
[2020-07-11] VITALS: BP 151/103
--- NOTE | 2020-07-11 00:35 | NUR ---
MESSAGED DR ABDALLA REGARDING THE PATIENT LATEST SL=631/103, HR-85. AWAITING FOR MD TO CALL BACK.
--- NOTE | 2020-07-11 02:00 | NUR ---
PATIENT ASLEEP AT THIS TIME. VISIBLE SYMMETRICAL CHEST RISE AND FALL NOTED. NOT IN ANY DISTRESS AT THIS TIME. SAFETY MEASURES. IN PLACED.
[2020-07-11 04:00] VITALS: BP 129/101
--- NOTE | 2020-07-11 04:00 | NUR ---
PATIENT BP STILL HIGH 129/101, HR-91, AFEBRILE, SATING 99% ON 2L/NC. SR ON TELE MONITOR,HR-91. NO COMPLAIN AT THIS TIME. NOT IN ANY DISTRESS. CALL LIGHT WITHIN REACH. WILL PAGED DR ABDALLA REGARDING THE PT BP.
--- NOTE | 2020-07-11 05:59 | NUR ---
MESSAGED DR ABDALLA REGARDING THE PT BP 129/101, HR-91. AWAITING FOR MD TO RESPOND.
[2020-07-11 06:10] LABS: BASOPHILS % (AUTO) 0.7 % (0.0-2.0); EOSINOPHILS # (AUTO) 0.3 K/uL (0-0.4); HEMATOCRIT 38.9 % (36-52); HEMOGLOBIN 12.2 g/dL (12.0-18.0); LYMPHOCYTES # (AUTO) 1.5 K/uL (2.0-11.5); LYMPHOCYTES % (AUTO) 32.4 % (20.5-51.1); MEAN CORPUSCULAR HEMOGLOBIN 24 pg (27-31); MEAN CORPUSCULAR HGB CONC 31 g/dL (33-37); MEAN CORPUSCULAR VOLUME 77.2 fL (80-94); MONOCYTES # (AUTO) 1.1 K/uL (0.8-1.0); MONOCYTES % (AUTO) 24.8 % (1.7-9.3); NEUTROPHILS # (AUTO) 1.6 K/uL (1.8-7.7); NEUTROPHILS % (AUTO) 36.1 % (42.2-75.2); PLATELET COUNT (AUTO) 212 K/uL (140-450); RED BLOOD CELL COUNT(AUTO) 5.04 MIL/uL (4.20-6.10); WHITE BLOOD COUNT (AUTO) 4.5 K/uL (4.8-10.8)
--- NOTE | 2020-07-11 06:51 | NUR ---
PATIENT STABLE. NO ACUTE EVENT THROUGHOUT THE NIGHT. PATIENT NOT IN ANY DISTRESS AT THIS TIME. NO COMPLAIN FROM THE PATIENT. ALL NEEDS ATTENDED. CALL LIGHT WITHIN REACH. WILL ENDORSE THE PATIENT TO THE ONCOMING RN FOR CONTINUITY OF CARE.
--- NOTE | 2020-07-11 07:41 | NUR ---
ENDORSED PATIENT TO DAY RN , REGARDING THE PATIENT FOR CONTINUITY OF CARE. PATIENT STABLE. SIGNING OFF.
--- NOTE | 2020-07-11 07:52 | NUR ---
PATIENT RECEIVED FROM DELICATESSEN CLERK RN. PT RESTING IN BED EYES CLOSED. EASY TO AROUSE. BREATHING IS SYMMETRICAL AND UNLABORED. CALL LIGHT IS WITHIN REACH/ ALL SAFETY MEASURES ARE IN PLACE. NO S/S OF DISTRESS .
--- NOTE | 2020-07-11 07:59 | NUR ---
PT FOUND ON RA SPO2 98%, PT STATED HE JUST CAME BACK FOR THE BATHROOM AND FELT A LITTLE SOB, PLACED PT BACK ON 2LNC SPO2 100%, PT ALERT AND AWAKE, NO SIGNS OF RESP DISTRESS NOTED AT THIS TIME, WILL CONTINUE TO MONITOR.
--- NOTE | 2020-07-11 08:05 | NUR ---
MD START AT BEDSIDE.
[2020-07-11 08:55] LABS: ANION GAP 18.8 (8-16); CREATININE 1.8 mg/dL (0.6-1.3); POTASSIUM 4.8 mmol/L (3.5-5.1)
[2020-07-11] MEDS ORDERED: ASPIRIN 325 MG TABEC PO SCH (09:06)
[2020-07-11] MEDS ORDERED: ECOTRIN 81 MG TABEC PO SCH (09:07)
[2020-07-11] MEDS ORDERED: ATORVASTATIN 20 MG TAB PO SCH (09:08)
[2020-07-11 09:09] LABS: MAGNESIUM 1.9 mg/dL (1.8-2.4); PHOSPHORUS 4.8 mg/dL (2.5-4.9); THYROID STIMULATING HORMONE 2.86 uIU/mL (0.34-3.74); TOTAL BILIRUBIN 1.3 mg/dL (0.0-1.0)
[2020-07-11] MEDS ORDERED: carvediloL 12.5 MG TAB PO SCH (09:09)
[2020-07-11] MEDS ORDERED: FUROSEMIDE 40 MG/4 ML VIAL IVP SCH (09:09)
[2020-07-11] MEDS ORDERED: LOSARTAN 25 MG TAB PO SCH (09:10)
--- NOTE | 2020-07-11 09:30 | NUR ---
MEDICATIONS GIVEN PER MD ORDER. PT EDUCATED AND VERBALIZED UNDERSTANDING. PT TOLERATED WELL. CALL LIGHT IS WITHIN REACH. ALL SAFETY MEASURES ARE IN PLACE. NO S/S OF DISTRESS .
[2020-07-11 10:00] VITALS: BP 121/97
--- NOTE | 2020-07-11 10:39 | NUR ---
PT RESTING IN BED. PATIENT EDUCATED ON USING URINAL FOR STRICT i & o. PT VERBALIZED UNDERSTANDING. PT RE-ORIENTED TO ROOM AND HOW TO REACH ME IF HE NEEDS ANYTHING. NO S/S OF DISTRESS CALL LIGHT WITHIN REACH. ALL SAFETY MEASURES ARE IN PLACE
--- NOTE | 2020-07-11 11:11 | NUR ---
PATIENT HAS BEEN SCREENED AND CATEGORIZED HIGH NUTRITION RISK. PATIENT WILL BE SEEN WITHIN 1-2 DAYS OF ADMISSION. 07/11/20 - 07/12/20 FR[address]ERRERA MBA, RD
[2020-07-11 11:56] LABS: PROTHROMBIN TIME 13.8 secs (10.8-13.4)
[2020-07-11 12:00] VITALS: BP 126/96
--- NOTE | 2020-07-11 12:10 | NUR ---
PT ROUNDED ON PT SITTING IN BED EATING . BREATHING IS SYMMETRICAL AND UNLABORED. CALL LIGHT IS WITHIN REACH/ ALL SAFETY MEASURES ARE IN PLACE. NO S/S OF DISTRESS .
--- NOTE | 2020-07-11 14:48 | NUR ---
PT GIVEN SNACK PER REQUEST. BREATHING IS SYMMETRICAL AND UNLABORED. CALL LIGHT IS WITHIN REACH/ ALL SAFETY MEASURES ARE IN PLACE. NO S/S OF DISTRESS .
[2020-07-11 16:00] VITALS: BP 133/84
--- NOTE | 2020-07-11 16:42 | NUR ---
PT RESTIN IN BED. NO S/S OF DISTRESS AT THIS TIME
--- NOTE | 2020-07-11 17:28 | NUR ---
DR. PRADO AT BEDSIDE
[2020-07-11] MEDS: FUROSEMIDE 40 MG/4 ML VIAL IVP SCH (17:35)
--- NOTE | 2020-07-11 19:10 | NUR ---
WILL ENDORSE TO ORE ROASTER NURSE FOR CONTINUITY OF CARE.
--- NOTE | 2020-07-11 19:11 | NUR ---
RECEIVED PATIENT FROM AM NURSE FOR CONTINUITY OF CARE. PATIENT IS A/A/O X4. RESTING IN BED, AROUSABLE TO VOICE. RESPIRATORY EVEN AND UNLABORED, ON 2L OXYGEN VIA NC. SKIN WARM, DRY, NON-DIAPHORETIC. IV ON RIGHT AC 20G, IS INFUSING FLUID @40ML/HR. PATIENT DENIES ANY PAIN OR DISCOMFORT AT THIS TIME. ABLE TO MAKE NEEDS KNOWN. PLAN OF CARE DISCUSSED, PATIENT VERBALIZED UNDERSTANDING. CALL LIGHT WITHIN REACH. WILL CONTINUE TO MONITOR.
[2020-07-11 20:00] VITALS: BP 136/94
[2020-07-11] MEDS: carvediloL 12.5 MG TAB PO SCH (20:42)
--- NOTE | 2020-07-11 20:42 | NUR ---
SCHEDULE MEDICATION GIVEN WITH EDUCATION. PATIENT VERBALIZED UNDERSTANDING. NO SIGN OF DISTRESS NOTE. PATIENT TOLERATED WELL. CALL LIGHT WITHIN REACH. WILL CONTINUE TO MONITOR.
[2020-07-11] MEDS: NACL 0.9% 1,000 ML IV SCH (21:53)
--- NOTE | 2020-07-11 22:00 | NUR ---
ROUND CHECK. PATIENT ASKED TO HAVE PUDDING AND SANDWICH. PATIENT SATISFIED. NO SIGN OF DISTRESS NOTED. CALL LIGHT WITHIN REACH. WILL CONTINUE TO MONITOR.
[2020-07-11 23:07] LABS: APPEARANCE,URINE CLEAR (CLEAR); BILIRUBIN,URINE NEGATIVE (NEGATIVE); BLOOD, URINE NEGATIVE (NEGATIVE); COLOR,URINE YELLOW (YELLOW); LEUKOCYTE ESTERASE ,URINE NEGATIVE (NEGATIVE); NITRITE, URINE NEGATIVE (NEGATIVE); PH,URINE 5.5 (5.0-9.0); UGLUCOSE NEGATIVE (NEGATIVE)
[2020-07-11 23:21] LABS: BARBITURATE, URINE NEGATIVE ng/ml (NEG <=200); BENZODIAZEPINE, URINE NEGATIVE ng/mL (NEG <=200); CANNABINOID, URINE POSITIVE ng/mL (NEG <=50); COCAINE, URINE NEGATIVE ng/mL (NEG <=300); OPIATE, URINE POSITIVE ng/mL (NEG <=2000); PHENCYCLIDINE SCREEN,URINE NEGATIVE ng/mL (NEG <=25)
[2020-07-12] VITALS: BP 113/79
--- NOTE | 2020-07-12 | NUR ---
ROUND CHECK. PATIENT IS SLEEPING, CHEST RISE AND FALL NOTED. NO SIGN OF DISTRESS NOTED. CALL LIGHT WITHIN REACH. WILL CONTINUE TO MONITOR.
--- NOTE | 2020-07-12 02:00 | NUR ---
PATIENT IS AWAKE, SITTING UP IN BED. NO SIGN OF DISTRESS NOTED. CALL LIGHT WITHIN REACH. WILL CONTINUE TO MONITOR.
[2020-07-12 04:00] VITALS: BP 124/84
--- NOTE | 2020-07-12 04:00 | NUR ---
ROUND CHECK. PATIENT IS RESTING IN BED, AROUSABLE TO VOICE. NO SIGN OF DISTRESS NOTED. CALL LIGHT WITHIN REACH. WILL CONTINUE TO MONITOR.
--- NOTE | 2020-07-12 06:00 | NUR ---
ROUND CHECK. PATIENT IS SLEEPING, CHEST RISE AND FALL NOTED. NO SIGN OF RESPIRATORY DISTRESS NOTED. CALL LIGHT WITHIN REACH. WILL CONTINUE TO MONITOR.
[2020-07-12 06:02] LABS: BASOPHILS % (AUTO) 0.8 % (0.0-2.0); EOSINOPHILS # (AUTO) 0.3 K/uL (0-0.4); EOSINOPHILS % (AUTO) 5.3 % (0.0-4.0); HEMATOCRIT 36.1 % (36-52); HEMOGLOBIN 11.3 g/dL (12.0-18.0); LYMPHOCYTES # (AUTO) 1.4 K/uL (2.0-11.5); LYMPHOCYTES % (AUTO) 26.2 % (20.5-51.1); MEAN CORPUSCULAR HEMOGLOBIN 24 pg (27-31); MEAN CORPUSCULAR HGB CONC 31 g/dL (33-37); MONOCYTES # (AUTO) 0.8 K/uL (0.8-1.0); NEUTROPHILS # (AUTO) 2.9 K/uL (1.8-7.7); NEUTROPHILS % (AUTO) 52.7 % (42.2-75.2); PLATELET COUNT (AUTO) 204 K/uL (140-450); RED BLOOD CELL COUNT(AUTO) 4.74 MIL/uL (4.20-6.10); RED CELL DISTRIBUTION WIDTH 19.9 % (11.6-13.7); WHITE BLOOD COUNT (AUTO) 5.4 K/uL (4.8-10.8)
[2020-07-12 06:17] LABS: ANION GAP 11.9 (8-16); CARBON DIOXIDE 29.2 mmol/L (21-32); CREATININE 1.7 mg/dL (0.6-1.3); POTASSIUM 4.1 mmol/L (3.5-5.1)
[2020-07-12 06:29] LABS: MAGNESIUM 1.5 mg/dL (1.8-2.4); PHOSPHORUS 4.1 mg/dL (2.5-4.9)
--- NOTE | 2020-07-12 07:10 | NUR ---
ENDORSED PATIENT TO AM NURSE FOR CONTINUITY OF CARE. PATIENT IS STABLE.
--- NOTE | 2020-07-12 07:11 | NUR ---
PATIENT ENDORSED BY ASSISTANT TEACHER PRIMARY FOR CONTINUITY OF CARE, POC DISCUSSED. PATIENT RESTING IN BED WITH A RIGHT AC 20 GAUGE RUNNING 40ML/HR OF NS. PATIENT IS ALERT AND ORIENTED X4, COMPLAINING OF PAIN 6/10. PATIENT IS CURRENTLY ON ROOM AIR, WITH NO COMPLAINTS OF SOB, CHEST RISING AND FALLING EVEN AND UNLABORED. PATIENT ON A STRICT I&O WITH A URINAL AT BEDSIDE. PATIENT IN STABLE CONDITION, ALL SAFETY MEASURES IN PLACE, WILL CONTINUE TO MONITOR.
--- NOTE | 2020-07-12 07:45 | NUR ---
MEDICATED PATIENT PER PRN ORDER FOR 6/10 PAIN. EDUCATION PROVIDED TO PATIENT, VERBALIZED UNDERSTANDING. PATIENT IN STABLE CONDITION, WILL CONTINUE TO MONITOR.
[2020-07-12] MEDS: HYDROcodone/APAP 5/325 MG 1 TAB TAB PO PRN (07:46)
[2020-07-12 08:00] VITALS: BP 129/92
[2020-07-12] MEDS: ECOTRIN 81 MG TABEC PO SCH (08:39)
[2020-07-12] MEDS: ATORVASTATIN 20 MG TAB PO SCH (08:40)
[2020-07-12] MEDS: carvediloL 12.5 MG TAB PO SCH ×2 (08:40→20:10)
[2020-07-12] MEDS: FUROSEMIDE 40 MG/4 ML VIAL IVP SCH ×2 (08:41→17:05)
--- NOTE | 2020-07-12 08:53 | NUR ---
SCHEDULED MEDICATION ADMINISTERED. PATIENT EDUCATION PROVIDED. PATIENT VERBALIZED UNDERSTANDING. ASSESSMENT COMPLETE, LUNG SOUNDS CLEAR, NO EDEMA NOTED IN LOWER EXTREMITIES, +2 PEDAL PULSES. NS RUNNING AT 40 ML/HR. INGUINAL HERNIA ON LEFT GROIN. DR. CARRILLO AT BEDSIDE, ASSESSED HERNIA. PATIENT IN STALE CONDITION, SAFETY MEASURES IN PLACE. WILL CONTINUE TO MONITOR.
--- NOTE | 2020-07-12 08:57 | NUR ---
PATIENT HAS BEEN RE-SCREENED AND CATEGORIZED MODERATE NUTRITION RISK. PATIENT WILL BE SEEN WITHIN 3-5 DAYS OF ADMISSION. 07/13/20 07/15/[address]
[2020-07-12] MEDS: LOSARTAN 25 MG TAB PO SCH (09:04)
--- NOTE | 2020-07-12 09:50 | NUR ---
ROUNDED ON PATIENT. PATIENT RESTING COMFORTABLY IN BED WITH NO SIGNS OF ACUTE DISTRESS. CHEST RISING AND FALLING EVEN AND UNLABORED. PATIENT ON ROOM AIR WITH NO COMPLAINTS OF SOB. SAFETY MEASURES IN PLACE, CALL LIGHT WITHIN REACH, WILL CONTINUE TO MONITOR.
--- NOTE | 2020-07-12 10:49 | NUR ---
PATIENT COMPLAINED OF PAIN 8/10 IN LEFT GROIN. PRN PAIN MEDICATION ADMINISTERED PER MD ORDERS. EDUCATION PROVIDED TO PATIENT, PATIENT VERBALIZED UNDERSTANDING. PATIENT TOLERATED ADMINISTRATION. PATIENT OUTPUT MEASURED AND EMPTIED. SAFETY MEASURES IN PLACE, CALL LIGHT WITHIN REACH. WILL CONTINUE TO MONITOR AND REASSESS PAIN.
--- NOTE | 2020-07-12 11:49 | NUR ---
PATIENT IS RESTING COMFORTABLE WITH NO SIGNS OF ACUTE DISTRESS. SAFETY MEASURES IN PLACE, CALL LIGHT WITHIN REACH. WILL CONTINUE TO MONITOR.
[2020-07-12 12:00] VITALS: BP 98/74
--- NOTE | 2020-07-12 13:18 | NUR ---
ROUNDED ON PATIENT. PATIENT RESTING COMFORTABLY IN BED. SAFETY MEASURES IN PLACE. CALL LIGHT WITHIN REACH. WILL CONTINUE TO MONITOR.
--- NOTE | 2020-07-12 14:45 | NUR ---
ROUNDED ON PATIENT. PATIENT ASLEEP IN BED ON HIS LEFT SIDE. NO SIGNS OF ACUTE DISTRESS, SAFETY MEASURES IN PLACE. CALL LIGHT WITHIN REACH. WILL CONTINUE TO MONITOR.
--- NOTE | 2020-07-12 15:12 | NUR ---
PT RESTING , WATCHING T.V NO SIGN OF DISTRESS, CALL LIGHT MONITOR WITHIN REACH. ALL SAFETY MEASURES IN PLACE.
[2020-07-12 16:00] VITALS: BP 113/87
--- NOTE | 2020-07-12 16:47 | NUR ---
ROUNDED ON PATIENT. PATIENT RESTING COMFORTABLY IN BED, WITH CALL LIGHT WITHIN REACH. SAFETY MEASURES IN PLACE. WILL CONTINUE TO MONITOR.
--- NOTE | 2020-07-12 17:14 | NUR ---
SCHEDULED MEDICATION ADMINISTERED, PATIENT EDUCATION PROVIDED. PATIENT VERBALIZED UNDERSTANDING. PATIENT TOLERATED MEDICATION ADMINISTRATION, IV SITE CLEAN, DRY AND INTACT. NO PAIN REPORTED AT IV SITE. SAFETY MEASURES IN PLACE, WITH CALL LIGHT WITHIN REACH. WILL CONTINUE TO MONITOR.
--- NOTE | 2020-07-12 17:22 | NUR ---
PT ASKED FOR FOOD, CONTACTED FNS AND OBTAINED TURKEY SANDWICH FOR PT .
--- NOTE | 2020-07-12 19:26 | NUR ---
PT ENDORSED TO CARE NURSE RN FOR CONTINUITY OF CARE. POC DISCUSSED. PT IN STABLE CONDITION.
--- NOTE | 2020-07-12 19:27 | NUR ---
RECEIVED BEDSIDE ENDORSEMENT FROM AM SHIFT RN. PATIENT IS ASLEEP, NO DISTRESS, RESPIRATION EVEN AND UNLABORED, IVF INFUSING, AMBULATORY, SAFETY MEASURES IN PLACE, PLAN OF CARE DISCUSSED, WILL CONTINUE TO MONITOR, CALL LIGHT WITHIN REACH.
--- NOTE | 2020-07-12 19:38 | NUR ---
PT WAS SEEN AND ASSESSED. FOUND PT ON ROOM AIR WITH SPO2 98%. PT IS IN NO RESPIRATORY DISTRESS AT THIS TIME. WILL CONTINUE TO MONITOR PT.
[2020-07-12 20:00] VITALS: BP 131/89
[2020-07-12] MEDS: NACL 0.9% 1,000 ML IV SCH (20:11)
--- NOTE | 2020-07-12 20:20 | NUR ---
V/S TAKEN, COREG PO GIVEN ORDERED, MED EDUCATION PROVIDED, VERBALIZED UNDERSTANDING, TOLERATED WELL, CALL LIGHT WITHIN REACH.
[2020-07-12] MEDS ORDERED: MAGNESIUM OXIDE 400 MG TAB PO SCH (21:55)
--- NOTE | 2020-07-12 22:10 | NUR ---
GAVE HALIMA SNACK AND A PUDDING TO PT REQUESTED BY PATIENT.
[2020-07-13] VITALS: BP 120/83
--- NOTE | 2020-07-13 00:47 | NUR ---
V/S TAKEN AND RECORDED, KEPT CLEAN, DRY AND COMFORTABLE, CALL LIGHT WITHIN REACH.
--- NOTE | 2020-07-13 02:00 | NUR ---
ASLEEP, NOTED CHEST RISE, WILL CONTINUE TO MONITOR, CALL LIGHT WITHIN REACH.
[2020-07-13 04:00] VITALS: BP 113/81
--- NOTE | 2020-07-13 04:00 | NUR ---
V/S TAKEN, FIXED IV SITE, REINFORCED DRESSING, IV CANNULA PATENT.
--- NOTE | 2020-07-13 07:15 | NUR ---
RECEIVED REPORT FOR NIGHT CUSTODIAN RN FOR CONTINUITY OF CARE. AOX4, RESTING IN BED, ABLE TO MAKE NEEDS KNOWN. SR ON MONITOR. ON RA. VITAL SIGNS STABLE. CONTINENT, ABLE TO AMBULATE, USES URINAL FOR STRICT I&OS. IV CLEAN, DRY, AND INTACT, ON RAC 20 G INFUSING NS AT 40 ML/HR. SKIN INTACT. DRAMATIC ART TEACHER IN PLACE. SAFETY MEASURES IN PLACE. BED IN LOW POSITION, BED LOCKED. CALL LIGHT WITHIN REACH. WILL CONTINUE TO MONITOR.
--- NOTE | 2020-07-13 07:45 | NUR ---
RECEIVED REPORT FOR BUSINESS SERVICES ADMINISTRATOR RN FOR CONTINUITY OF CARE. AOX4, RESTING IN BED. SR TO ST ON MONITOR. TRACH TO VENT FIO2 28 TV 475, RATE 18, PEEP 5. VITAL SIGNS STABLE. INCONTINENT, WEARS DIAPER. LAST BOWEL MOVEMENT 07/13. IV CLEAN, DRY, AND INTACT, ON LW 22 G INFUSING NS AT 80 ML/HR. SKIN INTACT. SECTION CUTTER IN PLACE. SAFETY MEASURES IN PLACE. BED IN LOW POSITION, BED LOCKED. HEAD OF BED AT 30 DEGREES. WILL CONTINUE TO MONITOR.
--- NOTE | 2020-07-13 07:51 | NUR ---
PATIENT IS STABLE, NO DISTRESS, DENIES PAIN, ALL NEEDS ATTENDED, KEPT COMFORTABLE, CALL LIGHT WITHIN REACH, BEDSIDE ENDORSEMENT GIVEN TO AM SHIFT RN FOR CONTINUITY OF CARE.
[2020-07-13 08:00] VITALS: BP 110/86
[2020-07-13] MEDS ORDERED: FUROSEMIDE 40 MG TAB PO SCH ×2 (08:30→17:00)
[2020-07-13] MEDS ORDERED: MAGNESIUM OXIDE 400 MG TAB PO SCH (09:00)
[2020-07-13] MEDS: ECOTRIN 81 MG TABEC PO SCH (09:25)
[2020-07-13] MEDS: ATORVASTATIN 20 MG TAB PO SCH (09:25)
[2020-07-13] MEDS: LOSARTAN 25 MG TAB PO SCH (09:25)
[2020-07-13] MEDS: carvediloL 12.5 MG TAB PO SCH (09:25)
--- NOTE | 2020-07-13 09:30 | NUR ---
ADMINISTERED SCHEDULED AM MEDICATIONS. ORAL CARE, HYGIENE CARE, AND CHG BATH PROVIDED. PATIENT IS IN NO SIGNS OF DISTRESS OR PAIN. ABLE TO MAKE NEEDS KNOWN. CALL LIGHT WITHIN REACH. WILL CONTINUE TO MONITOR.
--- NOTE | 2020-07-13 11:05 | NUR ---
PATIENT IS IN NO SIGNS OF DISTRESS OR PAIN. ABLE TO MAKE NEEDS KNOWN. CALL LIGHT WITHIN REACH. WILL CONTINUE TO MONITOR.
[2020-07-13 12:00] VITALS: BP 127/86
[2020-07-13 13:10] VITALS: BP 127/86
--- NOTE | 2020-07-13 14:40 | NUR ---
DISCHARGE INSTRUCTIONS GIVEN. PATIENT VERBALIZED UNDERSTANDING. DRESS APPROPRIATELY FOR DISCHARGE. IVS REMOVED. TELE BOX REMOVED. PATIENT DIRECTED OUTSIDE.
== END 2020-07-13 14:40 | disposition home or self-care (01) | DRG 280 ==
LOC: MED 15:08 → MTU 18:27
PROVIDERS: ADMIT Family Medicine; ATTEND Family Medicine
DX: I13.0 Hypertensive heart and chronic kidney disease with heart failure and stage 1 through stage 4 chronic kidney disease, or unspecified chronic kidney disease (principal); N17.0 Acute kidney failure with tubular necrosis; I21.A1 Myocardial infarction type 2; J96.01 Acute respiratory failure with hypoxia; I50.43 Acute on chronic combined systolic (congestive) and diastolic (congestive) heart failure; R18.8 Other ascites; K40.31 Unilateral inguinal hernia, with obstruction, without gangrene, recurrent; I42.8 Other cardiomyopathies; N18.9 Chronic kidney disease, unspecified; Z20.822 Contact with and (suspected) exposure to COVID-19; E78.5 Hyperlipidemia, unspecified; F17.210 Nicotine dependence, cigarettes, uncomplicated; F15.10 Other stimulant abuse, uncomplicated; I08.1 Rheumatic disorders of both mitral and tricuspid valves; Z79.899 Other long term (current) drug therapy; Z71.51 Drug abuse counseling and surveillance of drug abuser; Z71.6 Tobacco abuse counseling
CPT/HCPCS: 36415; 71045; 76705; 76770; 80048; 80053; 80305; 81003; 83036; 83735; 83880; 84100; 84300; 84436; 84443; 84484; 85025; 85610; 85730; 87081; 87205; 93005; 96374; 96375; 99285; J1940; J2270; J2405

== ENCOUNTER 2020-09-30 16:37 | Inpatient (IN) | payer OTHER, MEDICAID ==
[~2020-09-30] VITALS: Ht 175.3 cm; Wt 76.7 kg
[2020-09-30 16:57] VITALS: BP 122/71
--- NOTE | 2020-09-30 17:00 | NUR ---
Pt taken to bed 05 via wheelchair.
--- NOTE | 2020-09-30 18:09 | NUR ---
39 Y/O M, PATIENT PRESENTS TO ED WITH CHEST PAIN WITH PRESSURE SENSATION THAT STARTED LAST NIGHT ACCOMPANIED BY SOB, NAUSEA AND DIFFICULTY BREATHING. DENIES VOMITING AND DIARRHEA; SKIN IS PINK/WARM/DRY; AAOX4 WITH EVEN AND STEADY GAIT; LUNGS CLEAR BL; HR EVEN AND TACHY; PT DENIES ANY FEVER OR COUGH AT THIS TIME; PATIENT STATES PAIN OF 8/10 AT THIS TIME; PATIENT POSITIONED FOR COMFORT; HOB ELEVATED; BEDRAILS UP X2; BED DOWN. ER MD MADE AWARE OF PT STATUS. PMH: HTN, ASTHMA ALLERGY: MISOPROSTOL
[2020-09-30] MEDS ORDERED: FUROSEMIDE 40 MG/4 ML VIAL IVP ONE (18:15)
[2020-09-30 18:33] LABS: BASOPHILS # (AUTO) 0.1 K/uL (0.00-0.22); BASOPHILS % (AUTO) 1.1 % (0.0-2.0); EOSINOPHILS # (AUTO) 0.2 K/uL (0-0.4); EOSINOPHILS % (AUTO) 2.8 % (0.0-4.0); HEMATOCRIT 40.9 % (36-52); HEMOGLOBIN 12.8 g/dL (12.0-18.0); LYMPHOCYTES # (AUTO) 0.8 K/uL (2.0-11.5); LYMPHOCYTES % (AUTO) 11.2 % (20.5-51.1); MEAN CORPUSCULAR HEMOGLOBIN 25 pg (27-31); MEAN CORPUSCULAR HGB CONC 31 g/dL (33-37); MEAN CORPUSCULAR VOLUME 79.2 fL (80-94); MONOCYTES # (AUTO) 0.9 K/uL (0.8-1.0); MONOCYTES % (AUTO) 12.2 % (1.7-9.3); NEUTROPHILS # (AUTO) 5.3 K/uL (1.8-7.7); NEUTROPHILS % (AUTO) 72.7 % (42.2-75.2); PLATELET COUNT (AUTO) 230 K/uL (140-450); RED BLOOD CELL COUNT(AUTO) 5.16 MIL/uL (4.20-6.10); RED CELL DISTRIBUTION WIDTH 25.4 % (11.6-13.7); WHITE BLOOD COUNT (AUTO) 7.3 K/uL (4.8-10.8)
[2020-09-30 18:49] LABS: ALBUMIN 3.5 g/dL (3.4-5.0); ANION GAP 14.1 (8-16); CARBON DIOXIDE 25.3 mmol/L (21-32); CREATININE 1.7 mg/dL (0.6-1.3); POTASSIUM 4.4 mmol/L (3.5-5.1); TOTAL BILIRUBIN 1.9 mg/dL (0.0-1.0)
--- NOTE | 2020-09-30 19:26 | NUR ---
REPORT GIVEN TO ELISE THORNTON
--- NOTE | 2020-09-30 19:26 | NUR ---
Report received from Maggy THORNTON for continuity of care.
--- NOTE | 2020-09-30 20:00 | NUR ---
patient feeling dizziness. ERMD made aware
--- NOTE | 2020-09-30 20:32 | NUR ---
patient feeling SOB even with 2L O2, patient also feeling 8/10 pain on the sternum feels like pressure. ERMD made aware
[2020-09-30] MEDS ORDERED: ASPIRIN 81 MG TAB.CHEW PO ONE (20:35)
--- NOTE | 2020-09-30 20:35 | NUR ---
provided patient apple juice
[2020-09-30 20:47] LABS: BARBITURATE, URINE NEGATIVE ng/ml (NEG <=200); BENZODIAZEPINE, URINE NEGATIVE ng/mL (NEG <=200); CANNABINOID, URINE POSITIVE ng/mL (NEG <=50); COCAINE, URINE NEGATIVE ng/mL (NEG <=300); OPIATE, URINE NEGATIVE ng/mL (NEG <=2000); PHENCYCLIDINE SCREEN,URINE NEGATIVE ng/mL (NEG <=25)
[2020-09-30] MEDS ORDERED: ACETAMINOPHEN 325 MG TAB PO PRN (21:10)
[2020-09-30] MEDS ORDERED: ZOLPIDEM 5 MG TAB PO PRN (21:10)
[2020-09-30] MEDS ORDERED: LORazepam 2 MG/ML VIAL IM/IVP PRN (21:10)
[2020-09-30] MEDS ORDERED: DOCUSATE SODIUM 100 MG GELCAP PO PRN (21:10)
[2020-09-30] MEDS ORDERED: ONDANSETRON 4 MG/2 ML VIAL IVP PRN (21:10)
[2020-09-30] MEDS ORDERED: MORPHINE SULFATE 2 MG/ML SYR IVP PRN (21:10)
[2020-09-30] MEDS ORDERED: HYDROcodone/APAP 5/325 MG 1 TAB TAB PO PRN (21:10)
[2020-09-30] MEDS: NACL 0.9% 1,000 ML IV SCH ×2 (21:42→23:23)
[2020-09-30 21:57] LABS: APPEARANCE,URINE CLEAR (CLEAR); CHOL/HDL RATIO 4.4 (1-4.5); COLOR,URINE STRAW (YELLOW); FREE T4 (FREE THYROXINE) 1.05 ng/dL (0.76-1.46); MAGNESIUM 1.8 mg/dL (1.8-2.4); PHOSPHORUS 3.7 mg/dL (2.5-4.9); THYROID STIMULATING HORMONE 0.6 uIU/mL (0.34-3.74)
[2020-09-30 21:58] LABS: BILIRUBIN,URINE NEGATIVE (NEGATIVE); BLOOD, URINE NEGATIVE (NEGATIVE); LEUKOCYTE ESTERASE ,URINE NEGATIVE (NEGATIVE); NITRITE, URINE NEGATIVE (NEGATIVE); UGLUCOSE NEGATIVE (NEGATIVE)
[2020-09-30] MEDS ORDERED: FURO-570 PO (22:08)
[2020-09-30] MEDS ORDERED: LOSA100T51 PO (22:08)
--- NOTE | 2020-09-30 22:22 | NUR ---
patient to CT via [facility]
--- NOTE | 2020-09-30 22:22 | NUR ---
Patient will be admitted to care of Colin OROZCO. Admited to Telemetry. Will go to room 112b. Belongings list completed. Report to Joan THORNTON.
--- NOTE | 2020-09-30 22:50 | NUR ---
ADMITTED 39/ MALE, ON ROOM AIR, AMBULATORY, AAOX4, NO SOB, NO C/O PAIN, LAC 20 G NOTED, INTACT, PATENT, SAFETY MEASURES IN PLACE, V/S TAKEN AND RECORDED, MRSA SWAB TAKEN, ORIENTED TO ROOM AND CALL LIGHT, ALL QUESTIONS ANSWERED, KEPT COMFORTABLE.
[2020-09-30] MEDS: FUROSEMIDE 40 MG TAB PO SCH (23:25)
[2020-09-30 23:26] LABS: PROTHROMBIN TIME 12.6 secs (10.8-13.4)
[2020-09-30] MEDS: carvediloL 12.5 MG TAB PO SCH (23:26)
--- NOTE | 2020-09-30 23:27 | NUR ---
COREG PO AND LASIX PO GIVEN ORDERED, MED EDUCATION PROVIDED, VERBALIZED UNDERSTANDING, TOLERATED WELL, WILL CONTINUE TO MONITOR, CALL LIGHT WITHIN REACH.
[2020-10-01] VITALS: BP 136/93
--- NOTE | 2020-10-01 02:41 | NUR ---
PATIENT IS KEPT COMFORTABLE, NO SIGNS OF DISTRESS, IV SITE IS CLEAN AND PATENT, SAFETY MEASURES IN PLACE, WILL CONTINUE TO MONITOR, AND CALL LIGHT WITHIN REACH
[2020-10-01 04:00] VITALS: BP 128/80
--- NOTE | 2020-10-01 06:01 | NUR ---
PATIENT IS SLEEPING, NO SIGNS OF RESPIRATORY DISTRESS, OBSERVATION OF CHEST RISE AND FALL, IV SITE IS PATENT, CLEAN, AND DRY, CURRENTLY HAS NS RUNNING, SAFETY MEASURES IN PLACE, WILL CONTINUE TO MONITOR, CALL LIGHT WITHIN REACH.
--- NOTE | 2020-10-01 07:30 | NUR ---
RECEIVED REPORT FROM NIGHT NURSE. IN BED WITH HOB ELEVATED, AOX4, NO SOB ON ROOM AIR, NO C/O PAIN. PT AMBULATORY AND CONTINENT. WITH LAC 20G RUNNING NS AT TKO, INTACT, PATENT. SKIN INTACT. SAFETY MEASURES IN PLACE, CALL LIGHT WITHIN REACH. WILL CONTINUE TO MONITOR.
--- NOTE | 2020-10-01 07:33 | NUR ---
PATIENT STABLE, ALL NEEDS ATTENDED, NO SOB, SAFETY MEASURES IN PLACE, CALL LIGHT WITHIN REACH. ENDORSED AT BEDSIDE TO AM SHIFT RN.
--- NOTE | 2020-10-01 07:44 | NUR ---
PATIENT HAS BEEN SCREENED AND CATEGORIZED MODERATE NUTRITION RISK. PATIENT WILL BE SEEN WITHIN 3-5 DAYS OF ADMISSION. 10/03/2020-10/04/[address] Addendum: 10/01/20 at [address] ADDENDUM PATIENT HAS BEEN SCREENED AND CATEGORIZED MODERATE NUTRITION RISK. PATIENT WILL BE SEEN WITHIN 3-5 DAYS OF ADMISSION. 10/03/2020-10/05/[address]
[2020-10-01 08:00] VITALS: BP 127/85
--- NOTE | 2020-10-01 08:40 | NUR ---
DUE MEDS GIVEN PO. TOLERATED
[2020-10-01] MEDS: FUROSEMIDE 40 MG TAB PO SCH ×2 (08:53→20:57)
[2020-10-01] MEDS: carvediloL 12.5 MG TAB PO SCH ×2 (08:53→20:58)
[2020-10-01] MEDS ORDERED: FUROSEMIDE 40 MG TAB PO ONE (09:00)
[2020-10-01] MEDS ORDERED: carvediloL 6.25 MG TAB PO ONE (09:00)
--- NOTE | 2020-10-01 10:41 | NUR ---
PT WITH C/O SOB, O2SAT 96% ON ROOM AIR, PLACED ON 2L NC FOR COMFORT
--- NOTE | 2020-10-01 11:42 | NUR ---
PT ASLEEP IN BED. RESPIRATIONS EVEN AND UNLABORED
[2020-10-01 12:00] VITALS: BP 117/86
--- NOTE | 2020-10-01 12:50 | NUR ---
PT EATING LUNCH AT THIS TIME. NO APPARENT DISTRESS
--- NOTE | 2020-10-01 13:45 | NUR ---
PT ASLEEP, FLACC 0, NO SOB
--- NOTE | 2020-10-01 15:40 | NUR ---
PATIENT IS SLEEPING, NO SIGNS OF RESPIRATORY DISTRESS ON ROOM AIR
[2020-10-01 16:00] VITALS: BP 102/70
--- NOTE | 2020-10-01 18:12 | NUR ---
PT SITTING IN BED. NO SIGNS OF DISTRESS
--- NOTE | 2020-10-01 19:24 | NUR ---
RECEIVED BEDSIDE ENDORSEMENT FROM AM SHIFT RN. AMBULATORY, AAOX4, NO SOB, NO C/O PAIN, LAC 20 G NOTED, INTACT, PATENT, SAFETY MEASURES IN PLACE, ORIENTED TO ROOM AND CALL LIGHT, NASAL CANNULA 2L, O2 SAT WNL, KEPT COMFORTABLE.
[2020-10-01 20:00] VITALS: BP 122/97
--- NOTE | 2020-10-01 21:00 | NUR ---
ADMINISTERED MEDS GIVE, TOLERATED WELL, MED EDUCATION, UNDERSTANDS AND VERBALIZES MED EDUCATION, VITAL SIGNS TAKEN, CALL LIGHT WITHIN REACH, WILL CONTINUE TO MONITOR.
[2020-10-02] VITALS: BP 125/90
--- NOTE | 2020-10-02 01:55 | NUR ---
PATIENT IS ASLEEP, OBSERVATION OF CHEST RISE AND FALL, NO SIGNS OF RESPIRATORY DISTRESS, SAFETY MEASURES IN PLACE, WILL CONTINUE TO MONITOR, CHECK LABS/VITAL SIGNS.
[2020-10-02 04:00] VITALS: BP 104/66
--- NOTE | 2020-10-02 07:20 | NUR ---
RECEIVED BEDSIDE REPORT FROM NIGHTSHIFT NURSE FOR CONTINUITY OF CARE. PT IS SLEEPING, AROUSABLE BY VOICE. NO DISTRESS NOTED. PT ON RA. PT ON TELE MONITOR ON SINUS RHYTHM. SKIN IS DRY, WARM AND INTACT. IV ON LEFT AC 20 GAUGE RUNNING NS AT 10 ML/HR. PT IS STABLE. CALL LIGHT WITHIN REACH. WILL CONTINUE TO MONITOR.
--- NOTE | 2020-10-02 07:28 | NUR ---
PATIENT STABLE, NO SIGN OF DISTRESS, ALL NEEDS ATTENDED, CALL LIGHT WITHIN REACH. ENDORSED AT BEDSIDE TO AM SHIFT RN.
[2020-10-02 07:45] LABS: BASOPHILS % (AUTO) 0.9 % (0.0-2.0); EOSINOPHILS # (AUTO) 0.3 K/uL (0-0.4); EOSINOPHILS % (AUTO) 6.1 % (0.0-4.0); HEMATOCRIT 39.6 % (36-52); HEMOGLOBIN 12.6 g/dL (12.0-18.0); LYMPHOCYTES # (AUTO) 1.4 K/uL (2.0-11.5); MEAN CORPUSCULAR HEMOGLOBIN 25 pg (27-31); MEAN CORPUSCULAR HGB CONC 32 g/dL (33-37); MEAN CORPUSCULAR VOLUME 78.5 fL (80-94); MONOCYTES # (AUTO) 0.9 K/uL (0.8-1.0); MONOCYTES % (AUTO) 16.7 % (1.7-9.3); NEUTROPHILS # (AUTO) 2.7 K/uL (1.8-7.7); NEUTROPHILS % (AUTO) 50.3 % (42.2-75.2); PLATELET COUNT (AUTO) 220 K/uL (140-450); RED BLOOD CELL COUNT(AUTO) 5.05 MIL/uL (4.20-6.10); RED CELL DISTRIBUTION WIDTH 25.3 % (11.6-13.7); WHITE BLOOD COUNT (AUTO) 5.3 K/uL (4.8-10.8)
[2020-10-02 07:50] LABS: ANION GAP 10.6 (8-16); CREATININE 1.4 mg/dL (0.6-1.3); POTASSIUM 3.6 mmol/L (3.5-5.1)
[2020-10-02 07:55] LABS: MAGNESIUM 1.4 mg/dL (1.8-2.4); PHOSPHORUS 4.4 mg/dL (2.5-4.9)
[2020-10-02 08:00] VITALS: BP 126/91
[2020-10-02] MEDS: ATORVASTATIN 20 MG TAB PO SCH (09:01)
[2020-10-02] MEDS: carvediloL 12.5 MG TAB PO SCH ×2 (09:02→20:10)
[2020-10-02] MEDS: FUROSEMIDE 40 MG TAB PO SCH ×2 (09:02→20:10)
[2020-10-02] MEDS: ECOTRIN 81 MG TABEC PO SCH (09:02)
--- NOTE | 2020-10-02 09:05 | NUR ---
ADMINISTERED PRESCRIBED MEDICATION. PT TOLERATED WELL. MEDICATION EDUCATION PERFORMED. PT VERBALIZED UNDERSTANDING. PT IS STABLE. SAFETY MEASURES IN PLACE WILL CONTINUE TO MONITOR.
--- NOTE | 2020-10-02 11:50 | NUR ---
PT IS SITTING IN BED WATCHING TELEVISIONS. PT STATES HES OK. PT IS STABLE. CALL LIGHT WITHIN REACH. WILL CONTINUE TO MONITOR.
[2020-10-02 12:00] VITALS: BP 122/84
[2020-10-02] MEDS ORDERED: DEXTROSE 50% 50 ML SYR IVP PRN (13:05)
[2020-10-02] MEDS ORDERED: INSULIN LISPRO SLIDING SCALE 100 UNITS/ML VIAL SUBQ PRN (13:05)
[2020-10-02] MEDS ORDERED: MAG SULF 2000 MG/WATER PREMIX 50 ML IV SCH (13:30)
--- NOTE | 2020-10-02 13:40 | NUR ---
PT IS SLEEPING WITH VISIBLE CHEST RISE AND FALL. NO DISTRESS NOTED. WILL CONTINUE TO MONITOR.
--- NOTE | 2020-10-02 14:40 | NUR ---
PT IS AWAKE AND ALERT. NO DISTRESS NOTED. PT IS STABLE. PT IS ASKING FOR A SANDWICH AND CHOCOLATE PUDDING. GAVE BOTH TO PT. WILL CONTINUE TO MONITOR.
--- NOTE | 2020-10-02 15:35 | NUR ---
PT IS AWAKE AND ALERT. PT ON RA WITH UNLABORED BREATHING. PT IS WATCHING TELEVISION. PT DENIES ANY PAIN. CALL LIGHT WITHIN REACH. WILL CONTINUE TO MONITOR.
[2020-10-02 16:00] VITALS: BP 122/93
[2020-10-02] MEDS: BLOOD GLUCOSE MONITORING 1 DEV DEV FS SCH ×2 (17:13→20:10)
--- NOTE | 2020-10-02 17:40 | NUR ---
PT IS SLEEPING BUT AROUSABLE TO VOICE. NO DISTRESS NOTED. WILL CONTINUE TO MONITOR.
--- NOTE | 2020-10-02 17:50 | NUR ---
PT BLOOD SUGAR IS 124. NO ACTION TAKEN.
--- NOTE | 2020-10-02 19:15 | NUR ---
GAVE BEDSIDE REPORT TO CROP SPECIALIST NURSE FOR CONTINUITY OF CARE. PT IS AWAKE AND WATCHING TELEVISION. PT IS STABLE.
--- NOTE | 2020-10-02 19:30 | NUR ---
RECEIVED REPORT FROM DAY SHIFT RN, PT AAOX4 FOLLOWING COMMANDS. AMBULATORY STEADY GAIT. LUNGS CLEAR TO AUSCULTATION, SR ON MONITOR, +2 RADIAL/PEDAL PULSES EQUAL STRONG. NO EDEMA NOTED. PT STATES HE FEELS SOB WITH EXERTION, 98-100% ON ROOM AIR WHILE LYING IN BED. ABD SOFT NON DISTENDED. DENIES N/V/D. VOIDING IN URINAL. SKIN INTACT. IV TO L AC 20G. SKIN INTACT. BED LOCKED IN LOWEST POSITION. CALL LIGHT WITHIN REACH. SAFETY PRECAUTIONS IN PLACE
[2020-10-02 20:00] VITALS: BP 126/85
--- NOTE | 2020-10-02 23:40 | NUR ---
RECEIVED PT SLEEPING, EASILY AROUSABLE, AAOX4, ABLE TO MAKE NEEDS KNOWN, VITAL SIGNS STABLE, DENIES ANY PAIN, 94% SAT ON ROOM AIR, NO SOB NOTED, IVF INFUSING WELL, CALL LIGHT WITHIN REACH.
[2020-10-03] VITALS: BP 122/81
[2020-10-03] MEDS: NACL 0.9% 1,000 ML IV SCH (00:27)
[2020-10-03 04:00] VITALS: BP 116/71
--- NOTE | 2020-10-03 04:00 | NUR ---
SEEN PT SLEEPING, EASILY AROUSABLE, VITAL SIGNS STABLE, SAT-97% ON ROOM AIR, NO SOB NOTED, PT WENT BACK TO SLEEP, MONITORED CLOSELY.
--- NOTE | 2020-10-03 06:00 | NUR ---
PT AWAKE, BLOOD SUGAR CHECKED WITH 98 RESULT, HALIMA ALVARADO PROVIDED PER REQUEST, PT STATED NO SOB WHILE AT REST BUT SLIGHT SOB ON EXERTION, PT ON ROOM AIR AT THIS TIME WITH NO RESP DISTRESS, MONITORED CLOSELY.
[2020-10-03] MEDS: BLOOD GLUCOSE MONITORING 1 DEV DEV FS SCH ×2 (06:57→11:44)
[2020-10-03 06:59] LABS: BASOPHILS % (AUTO) 0.9 % (0.0-2.0); EOSINOPHILS # (AUTO) 0.3 K/uL (0-0.4); EOSINOPHILS % (AUTO) 5.8 % (0.0-4.0); HEMATOCRIT 39.3 % (36-52); HEMOGLOBIN 12.5 g/dL (12.0-18.0); LYMPHOCYTES # (AUTO) 1.2 K/uL (2.0-11.5); MEAN CORPUSCULAR HEMOGLOBIN 25 pg (27-31); MEAN CORPUSCULAR HGB CONC 32 g/dL (33-37); MEAN CORPUSCULAR VOLUME 78.3 fL (80-94); MONOCYTES # (AUTO) 0.8 K/uL (0.8-1.0); MONOCYTES % (AUTO) 14.8 % (1.7-9.3); NEUTROPHILS % (AUTO) 55.5 % (42.2-75.2); PLATELET COUNT (AUTO) 238 K/uL (140-450); RED BLOOD CELL COUNT(AUTO) 5.02 MIL/uL (4.20-6.10); WHITE BLOOD COUNT (AUTO) 5.4 K/uL (4.8-10.8)
--- NOTE | 2020-10-03 07:15 | NUR ---
PT AWAKE, NO SIGNS OF DISTRESS, REPORT GIVEN TO HILLARY ISIDRO FOR CONTINUITY OF CARE.
--- NOTE | 2020-10-03 07:20 | NUR ---
RECEIVED REPORT FROM NIGHTSHIFT NURSE. PT RESTING IN BED. ABLE TO MAKE NEEDS KNOWN. RESPIRATIONS EVEN AND UNLABORED WITH NO SOB OR RESPIRATORY DISTRESS. SKIN WARM AND DRY TO TOUCH. SAFETY MEASURES IN PLACE. WILL CONTINUE TO MONITOR
[2020-10-03 08:00] VITALS: BP 129/94
[2020-10-03 08:08] LABS: MAGNESIUM 1.8 mg/dL (1.8-2.4); PHOSPHORUS 3.9 mg/dL (2.5-4.9)
[2020-10-03 08:10] LABS: ANION GAP 10.2 (8-16); CARBON DIOXIDE 28.7 mmol/L (21-32); CREATININE 1.4 mg/dL (0.6-1.3); POTASSIUM 3.9 mmol/L (3.5-5.1)
[2020-10-03] MEDS: carvediloL 12.5 MG TAB PO SCH (09:00)
[2020-10-03] MEDS ORDERED: LOSARTAN 25 MG TAB PO SCH (09:00)
[2020-10-03] MEDS: ECOTRIN 81 MG TABEC PO SCH (09:00)
[2020-10-03] MEDS: FUROSEMIDE 40 MG TAB PO SCH (09:00)
[2020-10-03] MEDS: ATORVASTATIN 20 MG TAB PO SCH (09:00)
--- NOTE | 2020-10-03 10:18 | NUR ---
ADMINISTERED SCHED MED PRESCRIBED PER MD ORDER. PT TOLERATED WELL. MEDICATION EDUCATION PERFORMED. PT VERBALIZED UNDERSTANDING. SAFETY MEASURES IN PLACE. WILL CONTINUE TO MONITOR
[2020-10-03] MEDS ORDERED: LOSA25TA1 PO ×2 (10:19→10:25)
[2020-10-03] MEDS ORDERED: ASPI-1856 PO ×2 (10:19→10:25)
[2020-10-03] MEDS ORDERED: ATOR40TA PO ×2 (10:19→10:25)
[2020-10-03] MEDS ORDERED: POTA10TE30 PO ×2 (10:19→10:25)
[2020-10-03] MEDS ORDERED: SPIMDI INH ×2 (10:19→10:25)
[2020-10-03] MEDS ORDERED: FURO40TA9 PO ×2 (10:19→10:25)
[2020-10-03] MEDS ORDERED: CARV12.5 PO ×2 (10:19→10:25)
[2020-10-03] MEDS ORDERED: FURO-570 PO (10:25)
[2020-10-03 11:25] VITALS: BP 129/94
--- NOTE | 2020-10-03 11:30 | NUR ---
PT BLOOD SUGAR IS 95. NO INSULIN NEEDED
[2020-10-03 12:00] VITALS: BP 123/75
--- NOTE | 2020-10-03 12:00 | NUR ---
PATIENT AWARE OF DS AND WOULD LIKE TO GO HOME AFTER LUNCH. PT RIDE IS UNAVAILABLE AND IS REQUESTING BUS PASS. OBTAINED FOR PATIENT. WILL CONTINUE TO MONITOR
--- NOTE | 2020-10-03 13:00 | NUR ---
WENT OVER DISCHARGE INSTRUCTIONS WITH PATIENT. PT VERBALIZED UNDERSTANDING. WENT OVER MEDICATIONS, PT VERBALIZED UNDERSTANDING. EDUCATED PT TO VISIT ED FOR ANY SIGNS OF DISTRESS PT VERBALIZED UNDERSTANDING. PT UP TO DATE ON VACCINES. REMOVED INTACT IV CANNULA. REMOVED TELE MONITOR AND RETURNED TO LINE PRODUCTION COOK. PT GATHERED ALL OF HIS BELONGINGS AND CHANGED INTO HIS OWN CLOTHES. PT REQUESTING A SURGICAL MASK. NEW ONE PROVIDED TO PATIENT. PT STABLE TO GO HOME.
== END 2020-10-03 13:00 | disposition home or self-care (01) | DRG 280 ==
LOC: MED 16:37 → MTU 21:10
PROVIDERS: ADMIT Family Medicine; ATTEND Family Medicine
DX: I21.4 Non-ST elevation (NSTEMI) myocardial infarction (principal); I50.43 Acute on chronic combined systolic (congestive) and diastolic (congestive) heart failure; N17.0 Acute kidney failure with tubular necrosis; I13.0 Hypertensive heart and chronic kidney disease with heart failure and stage 1 through stage 4 chronic kidney disease, or unspecified chronic kidney disease; I42.8 Other cardiomyopathies; Z20.822 Contact with and (suspected) exposure to COVID-19; I11.0 Hypertensive heart disease with heart failure; N18.9 Chronic kidney disease, unspecified; E78.5 Hyperlipidemia, unspecified; F15.10 Other stimulant abuse, uncomplicated; Z71.51 Drug abuse counseling and surveillance of drug abuser; Z88.8 Allergy status to other drugs, medicaments and biological substances; Z71.6 Tobacco abuse counseling; Z91.14 Patient's other noncompliance with medication regimen; Z79.899 Other long term (current) drug therapy
CPT/HCPCS: 36415; 71045; 71275; 76705; 80048; 80053; 80305; 81003; 82150; 82948; 83036; 83690; 83735; 83880; 84100; 84439; 84443; 84484; 85025; 85610; 85730; 87081; 93005; 96361; 96374; 99291; J1940; J2270; J3475; Q9967

== ENCOUNTER 2020-10-23 10:47 | Inpatient (IN) | payer OTHER, MEDICAID, SELFPAY ==
[~2020-10-23] VITALS: Ht 175.3 cm; Wt 87.1 kg
[~2020-10-23 10:47] MED LIST changes: +ASPI-1856 PO; +FURO40TA9 PO; -ISOS10TA9 PO; -LOSA100T1 PO; +LOSA25TA1 PO
[2020-10-23 11:07] VITALS: BP 139/63
[2020-10-23] MEDS ORDERED: HYDROcodone/APAP 5/325 MG 1 TAB TAB PO ONE (11:35)
[2020-10-23] MEDS ORDERED: ASPIRIN 81 MG TAB.CHEW PO ONE (11:35)
--- NOTE | 2020-10-23 11:43 | NUR ---
pt taken to ct/xray via w/c
--- NOTE | 2020-10-23 11:44 | NUR ---
PT TAKEN VIA WHEELCHAIR TO CT AND XRAY
--- NOTE | 2020-10-23 12:00 | NUR ---
BLOODWORK COLLECTED AND WALKED OVER TO LAB
[2020-10-23 12:41] LABS: BASOPHILS % (AUTO) 0.5 % (0.0-2.0); EOSINOPHILS # (AUTO) 0.1 K/uL (0-0.4); EOSINOPHILS % (AUTO) 2.9 % (0.0-4.0); HEMATOCRIT 40.1 % (36-52); HEMOGLOBIN 12.6 g/dL (12.0-18.0); LYMPHOCYTES # (AUTO) 1.3 K/uL (2.0-11.5); MEAN CORPUSCULAR HEMOGLOBIN 25 pg (27-31); MEAN CORPUSCULAR HGB CONC 31 g/dL (33-37); MEAN CORPUSCULAR VOLUME 78.8 fL (80-94); MONOCYTES # (AUTO) 1.1 K/uL (0.8-1.0); NEUTROPHILS # (AUTO) 2.3 K/uL (1.8-7.7); PLATELET COUNT (AUTO) 211 K/uL (140-450); RED BLOOD CELL COUNT(AUTO) 5.09 MIL/uL (4.20-6.10); RED CELL DISTRIBUTION WIDTH 23.1 % (11.6-13.7); WHITE BLOOD COUNT (AUTO) 4.9 K/uL (4.8-10.8)
[2020-10-23 13:46] LABS: ALBUMIN 3.3 g/dL (3.4-5.0); ANION GAP 13.2 (8-16); CARBON DIOXIDE 25.4 mmol/L (21-32); CREATININE 1.8 mg/dL (0.6-1.3); MONOCYTES % (AUTO) 22.9 % (1.7-9.3); NEUTROPHILS % (AUTO) 46.7 % (42.2-75.2); POTASSIUM 4.6 mmol/L (3.5-5.1); TOTAL BILIRUBIN 1.7 mg/dL (0.0-1.0)
[2020-10-23] MEDS ORDERED: ONDANSETRON 4 MG/2 ML VIAL IM/IVP PRN (15:20)
[2020-10-23] MEDS ORDERED: DOCUSATE SODIUM 100 MG GELCAP PO PRN (15:20)
[2020-10-23] MEDS ORDERED: POTASSIUM CHLORIDE 10 MEQ TABER PO PRN (15:20)
[2020-10-23] MEDS ORDERED: ALBUTEROL SULFATE/IPRATROPIU 3 ML SOL IH PRN (15:20)
[2020-10-23] MEDS ORDERED: SODIUM PHOS / POTASSIUM PHOS 1 PKT PDR PO PRN (15:20)
[2020-10-23] MEDS ORDERED: MAGNESIUM OXIDE 400 MG TAB PO PRN (15:20)
[2020-10-23] MEDS ORDERED: FUROSEMIDE 40 MG/4 ML VIAL IVP SCH (15:20)
[2020-10-23] MEDS ORDERED: HYDROcodone/APAP 5/325 MG 1 TAB TAB PO PRN (15:20)
--- NOTE | 2020-10-23 15:50 | NUR ---
39/M presents to ED with c/o chest pain, shortness of breath and abdominal pain. Patient states that he can only walk a few steps without stopping, stating worsening since yesterday. Patient states the episodes of sob last around 30 minutes and he will feel the pressure like pain to the chest. Patient also c/o sharp abdominal pain since last night. Reports pain is 7 out of 10. Patient denies nausea, vomiting, fever, or other complaints.
[2020-10-23] MEDS: NACL 0.9% 1,000 ML IV SCH (16:09)
--- NOTE | 2020-10-23 16:30 | NUR ---
PATIENT PROVIDED WITH URINAL
[2020-10-23 16:42] LABS: MAGNESIUM 1.9 mg/dL (1.8-2.4); PHOSPHORUS 4.1 mg/dL (2.5-4.9)
[2020-10-23] MEDS ORDERED: ATOR40TA PO (16:53)
[2020-10-23] MEDS ORDERED: FURO-570 PO (16:53)
[2020-10-23] MEDS ORDERED: CARV12.5 PO (16:53)
[2020-10-23] MEDS ORDERED: LOSA25TA43 PO (16:53)
[2020-10-23] MEDS ORDERED: ASPI-1749 PO (16:53)
[2020-10-23 17:02] LABS: BARBITURATE, URINE NEGATIVE ng/ml (NEG <=200); BENZODIAZEPINE, URINE NEGATIVE ng/mL (NEG <=200); CANNABINOID, URINE POSITIVE ng/mL (NEG <=50); COCAINE, URINE NEGATIVE ng/mL (NEG <=300); OPIATE, URINE POSITIVE ng/mL (NEG <=2000); PHENCYCLIDINE SCREEN,URINE NEGATIVE ng/mL (NEG <=25)
--- NOTE | 2020-10-23 18:00 | NUR ---
PATIENT PROVIDED WITH DINNER TRAY, ON BEDSIDE LONG CHAIN QUILLER TENDER. ALL NEEDS MET AT THIS TIME.
--- NOTE | 2020-10-23 19:24 | NUR ---
Pt report given to Lashawn. Transfer of care at this time.
--- NOTE | 2020-10-23 21:00 | NUR ---
MEDICATED PER ADMITING ORDERS, TOLERATED WELL.
[2020-10-23] MEDS: carvediloL 12.5 MG TAB PO SCH (21:33)
[2020-10-23] MEDS: ATORVASTATIN 20 MG TAB PO SCH (21:35)
--- NOTE | 2020-10-23 23:06 | NUR ---
Patient appears to be resting comfortably in bed. Vital Signs within normal limits. Respirations even and unlabored.
--- NOTE | 2020-10-24 02:00 | NUR ---
slept most the time comfortably, vital signs stable.
--- NOTE | 2020-10-24 07:25 | NUR ---
report given to Maggy Das for continuity of care
[2020-10-24 07:48] LABS: BASOPHILS # (AUTO) 0.1 K/uL (0.00-0.22); BASOPHILS % (AUTO) 1.3 % (0.0-2.0); EOSINOPHILS # (AUTO) 0.2 K/uL (0-0.4); EOSINOPHILS % (AUTO) 5.5 % (0.0-4.0); HEMATOCRIT 37.8 % (36-52); HEMOGLOBIN 11.8 g/dL (12.0-18.0); LYMPHOCYTES # (AUTO) 1.3 K/uL (2.0-11.5); LYMPHOCYTES % (AUTO) 29.7 % (20.5-51.1); MEAN CORPUSCULAR HEMOGLOBIN 25 pg (27-31); MEAN CORPUSCULAR HGB CONC 31 g/dL (33-37); MEAN CORPUSCULAR VOLUME 78.8 fL (80-94); MONOCYTES # (AUTO) 0.8 K/uL (0.8-1.0); MONOCYTES % (AUTO) 18.1 % (1.7-9.3); NEUTROPHILS % (AUTO) 45.4 % (42.2-75.2); PLATELET COUNT (AUTO) 197 K/uL (140-450); RED BLOOD CELL COUNT(AUTO) 4.79 MIL/uL (4.20-6.10); RED CELL DISTRIBUTION WIDTH 22.6 % (11.6-13.7); WHITE BLOOD COUNT (AUTO) 4.5 K/uL (4.8-10.8)
[2020-10-24 08:11] LABS: ANION GAP 14.5 (8-16); CARBON DIOXIDE 24.3 mmol/L (21-32); CREATININE 1.8 mg/dL (0.6-1.3); POTASSIUM 4.8 mmol/L (3.5-5.1)
--- NOTE | 2020-10-24 08:22 | NUR ---
Patient will be admitted to care of JANET OROZCO. Admited to TELEMETRY. Will go to room 104B. Belongings list completed. Report to FAISAL THORNTON.
[2020-10-24 08:45] VITALS: BP 132/91
--- NOTE | 2020-10-24 08:45 | NUR ---
RECEIVED PATIENT FROM ER. PATIENT IS BEING ADMITTED FOR CHEST PAIN AND CHF. PATIENT IS ALERT AND ORIENTED X4, STABLE, AND RESTING IN BED. NO S/S OF DISTRESS. IV SITE IS A 20G AT THE LEFT AC; IV IS PATIENT, DRY, INTACT, AND FLUSHES WELL. RESPIRATIONS ARE EVEN AND UNLABORED. PATIENT DOES NOT COMPLAIN OF ANY PAIN AT THIS TIME. ALL SAFETY PRECAUTIONS IN PLACE.
--- NOTE | 2020-10-24 09:55 | NUR ---
PATIENT HAS BEEN SCREENED AND CATEGORIZED MODERATE NUTRITION RISK. PATIENT WILL BE SEEN WITHIN 3-5 DAYS OF ADMISSION. 10/25/20-10/27/[address]
[2020-10-24] MEDS: PANTOPRAZOLE 40 MG INJ VIAL IVP SCH (10:22)
[2020-10-24] MEDS: FUROSEMIDE 40 MG/4 ML VIAL IVP SCH ×2 (10:22→17:38)
[2020-10-24] MEDS: ECOTRIN 81 MG TABEC PO SCH (10:23)
[2020-10-24] MEDS: carvediloL 12.5 MG TAB PO SCH ×2 (10:23→20:39)
[2020-10-24] MEDS: LOSARTAN 25 MG TAB PO SCH (10:23)
--- NOTE | 2020-10-24 10:25 | NUR ---
ADMINISTERED SCHEDULED MEDICATIONS. PATIENT VERBALIZED UNDERSTANDING. ALL SAFETY PRECAUTIONS IN PLACE.
[2020-10-24 12:00] VITALS: BP 127/84
--- NOTE | 2020-10-24 12:45 | NUR ---
PATIENT IS STABLE AND RESTING IN BED. NO S/S OF DISTRESS. RESPIRATIONS ARE EVEN AND UNLABORED. ALL SAFETY PRECAUTIONS IN PLACE. WILL CONTINUE TO MONITOR.
--- NOTE | 2020-10-24 15:30 | NUR ---
PATIENT REMAINS STABLE. NO S/S OF DISTRESS. NO COMPLAINTS OF PAIN. WILL CONTINUE TO MONITOR.
[2020-10-24] MEDS: NACL 0.9% 1,000 ML IV SCH (15:43)
--- NOTE | 2020-10-24 15:55 | NUR ---
DC PLANN[age] YRS OLD HOMELESS PATIENT WAS ADMITTED FROM ER WITH A DX OF CHEST PAIN , CHF PATIENT HAS A HX OF CHF, HLD AND HTN. CXR SHOWED NO ACUTE CHEST FINDINGS CT ABD SHOWED CHOLELITHIASIS OR GALLBLADDER SLUDGE. RAPID COVID TEST NEGATIVE. ADMINISTERED LASIX IVP, IVF, AND CONTINUED HOME MEDS. CONSULTED WITH CARDIO . BROADCAST PROGRAM DIRECTOR TO EVALUATE FOR HOMELESSNESS. CM TO FOLLOW
[2020-10-24 16:00] VITALS: BP 117/82
--- NOTE | 2020-10-24 17:38 | NUR ---
ADMINISTERED SCHEDULED MEDICATIONS. PATIENT VERBALIZED UNDERSTANDING. ALL SAFETY PRECAUTIONS IN PLACE.
--- NOTE | 2020-10-24 19:20 | NUR ---
RECEIVED BEDSIDE REPORT FROM DAY RN. PT IS AAOX4 , AMBULATORY ABLE TO MAKE NEEDS KNOWN. RESPIRATIONS ARE EQUAL AND UNLABORED ON ROOM AIR. C/C CP DX CHF EXA AND CP. PT REPORTS NO CP TODAY. HX CHF AND METH ABUSE. IV ON LAC 20G NS @20ML/H. ON FLUID RESTRICTION. SKIN IS WARM,DRY AND INTACT. POC DISCUSSED WITH PATIENT. CALL LIGHT IS WITHIN REACH. WILL CONTINUE TO MONITOR.
--- NOTE | 2020-10-24 19:33 | NUR ---
ENDORSED PATIENT TO TELEGRAPH SERVICE RATER RN FOR CONTINUITY OF CARE. PATIENT IS STABLE.
[2020-10-24 20:00] VITALS: BP 128/95
[2020-10-24] MEDS: ATORVASTATIN 20 MG TAB PO SCH (20:37)
--- NOTE | 2020-10-24 20:39 | NUR ---
VSS. ADMIN MIRNA MEDICATIONS PER ORDERS COREG GIVEN FOR BP 128/95 93BPM. MED EDUCATION GIVEN. GAVE PUDDING AND CRACKERS PER REQUEST. EDUCATED PATIENT ON FLUID RESTRICTION PT VERBALIZED UNDERSTANDING. CALL LIGHT IS WITHIN REACH. WILL CONTINUE TO MONITOR.
--- NOTE | 2020-10-24 22:15 | NUR ---
GAVE SANDWICH PER REQUEST. PT DENIES ANY DISCOMFORT. ALL SAFETY MEASURES ARE IN PLACE. WILL CONTINUE TO MONITOR.
[2020-10-25] VITALS: BP 117/94
--- NOTE | 2020-10-25 00:14 | NUR ---
VITAL SIGNS ARE WITHIN NORMAL LIMITS. ALL SAFETY MEASURES ARE IN PLACE. CALL LIGHT IS WITHIN REACH.
[2020-10-25] MEDS: ACETAMINOPHEN 325 MG TAB PO PRN ×2 (01:24→15:39)
--- NOTE | 2020-10-25 01:24 | NUR ---
ADMIN TYLENOL FOR HEADACHE WILL CONTINUE TO MONITOR.
[2020-10-25 04:00] VITALS: BP 138/83
--- NOTE | 2020-10-25 04:00 | NUR ---
VITAL SIGNS ARE WITHIN NORMAL LIMITS. SAFETY MEASURES ARE IN PLACE. CALL LIGHT IS WITHIN REACH.
--- NOTE | 2020-10-25 06:05 | NUR ---
SNACK GIVEN PER REQUEST. NO S/S OF DISTRESS. CALL LIGHT IS WITHIN REACH
[2020-10-25 07:09] LABS: BASOPHILS # (AUTO) 0.1 K/uL (0.00-0.22); BASOPHILS % (AUTO) 2.1 % (0.0-2.0); EOSINOPHILS # (AUTO) 0.2 K/uL (0-0.4); EOSINOPHILS % (AUTO) 5.1 % (0.0-4.0); HEMATOCRIT 36.6 % (36-52); HEMOGLOBIN 11.9 g/dL (12.0-18.0); LYMPHOCYTES # (AUTO) 1.1 K/uL (2.0-11.5); LYMPHOCYTES % (AUTO) 25.3 % (20.5-51.1); MEAN CORPUSCULAR HEMOGLOBIN 25 pg (27-31); MEAN CORPUSCULAR HGB CONC 32 g/dL (33-37); MEAN CORPUSCULAR VOLUME 77.2 fL (80-94); MONOCYTES # (AUTO) 0.6 K/uL (0.8-1.0); MONOCYTES % (AUTO) 13.7 % (1.7-9.3); NEUTROPHILS # (AUTO) 2.4 K/uL (1.8-7.7); NEUTROPHILS % (AUTO) 53.8 % (42.2-75.2); PLATELET COUNT (AUTO) 194 K/uL (140-450); RED BLOOD CELL COUNT(AUTO) 4.74 MIL/uL (4.20-6.10); RED CELL DISTRIBUTION WIDTH 22.5 % (11.6-13.7); WHITE BLOOD COUNT (AUTO) 4.5 K/uL (4.8-10.8)
--- NOTE | 2020-10-25 07:17 | NUR ---
GAVE BEDSIDE REPORT TO DAY RN. PT ENDORSED IN STABLE CONDITION.
--- NOTE | 2020-10-25 07:20 | NUR ---
RECEIVED REPORT FROM PERSONAL LINES SALES EXECUTIVE RN FOR CONTINUITY OF CARE. PATIENT IS RESTING IN BED. NO S/S OF DISTRESS. ALL SAFETY PRECAUTIONS IN PLACE.
[2020-10-25 08:00] VITALS: BP 162/78
[2020-10-25 08:23] LABS: ANION GAP 11.4 (8-16); CARBON DIOXIDE 27.7 mmol/L (21-32); CREATININE 1.6 mg/dL (0.6-1.3); POTASSIUM 4.1 mmol/L (3.5-5.1)
--- NOTE | 2020-10-25 08:45 | NUR ---
DR. MATAMOROS AT BEDSIDE WITH PATIENT FOR ASSESSMENT AND POC DISCUSSION.
[2020-10-25] MEDS: ECOTRIN 81 MG TABEC PO SCH (08:50)
[2020-10-25] MEDS: LOSARTAN 25 MG TAB PO SCH (08:50)
[2020-10-25] MEDS: FUROSEMIDE 40 MG/4 ML VIAL IVP SCH ×2 (08:51→17:00)
[2020-10-25] MEDS: carvediloL 12.5 MG TAB PO SCH ×2 (08:51→21:28)
[2020-10-25] MEDS: PANTOPRAZOLE 40 MG INJ VIAL IVP SCH (08:51)
--- NOTE | 2020-10-25 08:51 | NUR ---
ADMINISTERED SCHEDULED MEDICATIONS. PATIENT VERBALIZED UNDERSTANDING. ALL SAFETY PRECAUTIONS IN PLACE.
--- NOTE | 2020-10-25 11:50 | NUR ---
CHECKED ON PATIENT. PATIENT IS RESTING IN BED. NO S/S OF DISTRESS. WILL CONTINUE TO MONITOR.
[2020-10-25 12:00] VITALS: BP 119/70
--- NOTE | 2020-10-25 13:35 | NUR ---
PATIENT IS STABLE, RESTING IN BED. NO S/S OF DISTRESS. RESPIRATIONS ARE EVEN AND UNLABORED. ALL SAFETY PRECAUTIONS IN PLACE.
[2020-10-25] MEDS: NACL 0.9% 1,000 ML IV SCH (15:20)
--- NOTE | 2020-10-25 15:39 | NUR ---
PATIENT COMPLAINED OF 3/10 SHARP HEADACHE. ADMINISTERED PRN TYLENOL. PATIENT VERBALIZED UNDERSTANDING. WILL CONTINUE TO MONITOR.
[2020-10-25 16:00] VITALS: BP 135/75
--- NOTE | 2020-10-25 16:29 | NUR ---
DC PLANNING PATIENT IS A 39-YEAR-OLD MALE ADMITTED ON THE [facility]/ER 10/23/20. DUE TO PATIENT HAVING CHEST PAIN AND DIAGNOSIS HX. OF CONGESTIVE HEART FAILURE. MODEL SET ARTIST MET WITH PATIENT AT BEDSIDE DISCUSS AND GATHER HIS COLLATERAL INFORMATION. PER PATIENT HE WAS LIVING IN AND OUT HIS MOTHER [place] HOME IN [facility] [place] DUE TO HIS KIDS LIVING WITH HER. PER PATIENT HE IS HOMELESS AND CAN ONLY STAY THERE FOR A COUPLE DAYS BUT EVENTUALLY HAS TO MOVED AND WILL BE FINDING A CARE HOME IN ONE OF THE PLACES IN THE LIST OF RESOURCES THIS ANALYTICS LEADER PROVIDED TO HIM. SW PROVIDED A LIST OF RESOURCES FOR HOMELESS SHELTERS AND LOW COST HOUSING. SW ALSO PROVIDED PATIENT WITH RECOURSES FOR FOOD. PER PATIENT HE IS INDEPENDENT AND REPORTED NOT HAVING ADVANCE DIRECTIVES AND WAS NOT INTERESTED ON GETTING INFORMATION PACKET PROVIDED BY SW AT THE TIME OF VISIT. PATIENT REPORTED NOT HAVING OR NEEDING DME AT THIS TIME. PATIENT ALSO REPORTED NOT HAVING ANY ISSUES GETTING OR TAKING HIS MEDICATIONS THAT GETS FROM [facility] IN [place]ULAR[place]. PATIENT STATED THAT HE DO NOT HAVE PRIMARY DOCTOR AT THIS TIME AND WILL LIKE TO GET A LIST OF PROVIDERS IN THIS AREA. SW PROVIDED PATIENT WITH A LIST OF PROVIDERS AND INFORM HIM THAT SW WILL SET UP HIS FOLLOW UP CARE APPOINTMENT WITH IN 7 DAYS AFTER DISCHARGE. PATIENT AGREED. THIS ANALYTICS LEADER MADE A FOLLOW UP APPOINTMENT FOR PATIENT FOR Saturday10/31/20 AT 10:00AM WITH MD. LUIS M ULRICH. PER PATIENT HE IS NOT CLOSE TO HIS EXTENDED FAMILY HOWEVER; THEY ASSIST HIM WHEN HE NEEDS HELP HY HIS MOTHER [place] WHO IS IN THE CARE OF HIS CHILDREN. PATIENT REQUESTED FOR SW TO CONTACT HER TO LET HER KNOW HE IS AT THE HOSPITAL AN TO GIVE HER AND UPDATE ABOUT HIS STATUS. PATIENT REPORTED HE WILL BE GOING TO A CARE HOME AFTER DISCHARGE AND WILL NOT NEED TRANSPORT DUE TO TAKING A BUS. MODEL SET ARTIST CONTACTED JALEN FIGUEROA AT SHE STATED THAT SHE IS PATIENT'S MOTHER [place] WHO IS IN THE CASE OF HIS CHILDREN. PER MRS. FIGUEROA PATIENT IS HOMELESS HOWEVER; SHE HELPS HIM OUT SOMETIMES AND MAINTAIN CLOSE CONTACT WITH PATIENT SPECIALLY WHEN HE IS HOSPITALIZED. SW PROVIDED PATIENT'S MOTHER [place] WITH AND UPDATE HE REQUESTED DURING THE VISIT. SW WILL FOLLOW UP WITH PATIENT NEEDED. BERNADETTE CALLED [facility] AT AND SPOKE TO CRISTI TO SCHEDULED A FOLLOW UP APPOINTMENT FOR PATIENT AFTER DC FROM [facility]. CRISTI SCHEDULED PATIENT'S FOLLOW UP APPOINTMENT FOR Saturday10/31/20 AT 10:00AM WITH MD LUIS M ULRICH. BERNADETTE MET WITH PATIENT AGAIN AND PROVIDED HIM WITH APPOINTMENT NOTE AND INFORMATION FOR HIS UPCOMING APPOINTMENT ON Saturday10/31/20 AT 10:00AM WITH MD. ULRICH. PATIENT AGREED AND THANK THIS ANALYTICS LEADER FOR INFORMATION.
--- NOTE | 2020-10-25 17:05 | NUR ---
PATIENT IS SITTING AT BEDSIDE. NO COMPLAINTS OF PAIN AT THIS TIME. ALL SAFETY PRECAUTIONS IN PLACE.
--- NOTE | 2020-10-25 19:20 | NUR ---
ENDORSED PATIENT TO MILITARY EXCHANGE WIRELESS MANAGER RN FOR CONTINUITY OF CARE. PATIENT IS STABLE.
--- NOTE | 2020-10-25 19:21 | NUR ---
RECD. RESTING IN BED, AWAKE, A/OX4. RESPIRATION EVEN AND UNLABORED. IV SALINE LOCK AT THE LEFT AC G20, PATENT AND INTACT. AMBULATORY TO THE BR. USES THE URINAL. MEDICATIONS AND CARE FOR THE SHIFT DISCUSSED WITH PATIENT. VERBALIZED UNDERSTANDING. DENIES PAIN 0/10.
--- NOTE | 2020-10-25 19:30 | NUR ---
Patient's Plan of Care was discussed and reviewed with DRY PLASTERER HELPER: BROWN WANG.
[2020-10-25 20:00] VITALS: BP 114/75
--- NOTE | 2020-10-25 21:28 | NUR ---
SCHEDULED MEDICATIONS ADMINISTERED. TEACHINGS GIVEN ON THE IMPORTANCE OF FLUID RESTRICTION. VERBALIZED UNDERSTANDING.
[2020-10-25] MEDS: ATORVASTATIN 20 MG TAB PO SCH (21:29)
--- NOTE | 2020-10-25 21:45 | NUR ---
PT REFUSING SCHEDULED LANTUS AND LISPRO COVERAGE, PER EMAR. PT EDUCATED ON IMPORTANCE OF GLUCOSE CONTROL AND MEDICATION ADHERENCE. PT CONTINUES TO REFUSE AT THIS TIME. Addendum: 10/26/20 at 0240 by Tia Urbina RN ERASE NOTE: WRONG PATIENT ENTRY.
--- NOTE | 2020-10-26 | NUR ---
SLEEPING COMFORTABLY IN BED.
--- NOTE | 2020-10-26 02:00 | NUR ---
VOIDING WELL USING THE URINAL. CLEAR YELLOW URINE IN LARGE AMOUNT.
[2020-10-26 04:00] VITALS: BP 128/65
--- NOTE | 2020-10-26 04:00 | NUR ---
REQUESTED FOR SNACK OF HALIMA CRACKERS AND JUICE GIVEN. NO COMPLAINT OF PAIN 0/10.
--- NOTE | 2020-10-26 07:00 | NUR ---
CONDITION REMAIN STABLE. WILL ENDORSE TO AM SHIFT NURSE FOR CONTINUITY OF CARE.
--- NOTE | 2020-10-26 07:22 | NUR ---
RECEIVED REPORT FROM NIGHT NURSE PATIENT IS SLEEPING , ON ROOM AIR, USES THE URINAL, ON FLUID RESTRICTION, SKIN INTACT, IV INTACT ON LEFT AC WITH NS AT TKO. SAFETY MEASURES IN PLACE AND CALL LIGHT WITHIN REACH. WILL CONTINUE TO MONITOR.
[2020-10-26 07:44] LABS: ANION GAP 14.9 (8-16); CARBON DIOXIDE 28.7 mmol/L (21-32); CREATININE 1.7 mg/dL (0.6-1.3); POTASSIUM 3.6 mmol/L (3.5-5.1)
[2020-10-26 07:45] LABS: BASOPHILS % (AUTO) 0.3 % (0.0-2.0); EOSINOPHILS # (AUTO) 0.2 K/uL (0-0.4); HEMATOCRIT 37.7 % (36-52); HEMOGLOBIN 12.4 g/dL (12.0-18.0); LYMPHOCYTES # (AUTO) 1.3 K/uL (2.0-11.5); MEAN CORPUSCULAR HEMOGLOBIN 26 pg (27-31); MEAN CORPUSCULAR HGB CONC 33 g/dL (33-37); MEAN CORPUSCULAR VOLUME 77.2 fL (80-94); MONOCYTES # (AUTO) 0.8 K/uL (0.8-1.0); MONOCYTES % (AUTO) 15.5 % (1.7-9.3); NEUTROPHILS # (AUTO) 2.6 K/uL (1.8-7.7); NEUTROPHILS % (AUTO) 53.2 % (42.2-75.2); PLATELET COUNT (AUTO) 200 K/uL (140-450); RED BLOOD CELL COUNT(AUTO) 4.89 MIL/uL (4.20-6.10); RED CELL DISTRIBUTION WIDTH 23.1 % (11.6-13.7)
[2020-10-26 08:00] VITALS: BP 115/64
[2020-10-26] MEDS: LOSARTAN 25 MG TAB PO SCH (08:26)
[2020-10-26] MEDS: carvediloL 12.5 MG TAB PO SCH (08:26)
[2020-10-26] MEDS: PANTOPRAZOLE 40 MG INJ VIAL IVP SCH (08:26)
[2020-10-26] MEDS: ECOTRIN 81 MG TABEC PO SCH (08:26)
[2020-10-26] MEDS: FUROSEMIDE 40 MG/4 ML VIAL IVP SCH (08:27)
--- NOTE | 2020-10-26 08:33 | NUR ---
ADMINISTERED SCHEDULED MEDICATION CHECK VITAL SIGNS BP 115/64 MA 81 PATIENT DENIES ANY PAIN AND PATIENT COMPLAINS OF SHORTNESS OF BREATH, ENCOURAGED TO DO DEEP BREATHING EXERCISES AND ELEVATE HEAD OF BED. SAFETY PRECAUTIONS IN PLACE AND CALL LIGHT WITHIN REACH. WILL CONTINUE TO MONITOR.
--- NOTE | 2020-10-26 13:00 | NUR ---
DISCHARGED INSTRUCTIONS GIVEN TO PATIENT AT THE BEDSIDE, ENCOURAGED TO CONTINUE MEDICATIONS AND FOLLOW UP WITH PCP AND STORE GROUP MANAGER AFTER DISCHARGE AND TO ABSTAIN FROM SUBSTANCE ABUSE. INSTRUCTED TO LIMIT INTAKE OF SALTY FOODS AND EXERCISE DAILY. REMOVED ID BANDS AND IV INTACT AND COMPLETE NO BLEEDING. PATIENT CHANGED TO OWN CLOTHES AND PT TOOK ALL HIS BELONGINGS. ANSWERED PT QUESTION AND VERBALIZES UNDERSTANDING. PT ESCORTED TO FRONT LOBBY PT IS GOING HOME. PT IS STABLE.
== END 2020-10-26 12:58 | disposition home or self-care (01) | DRG 291 ==
LOC: MED 10:47 → MTU 14:30
PROVIDERS: ADMIT Hospitalist; ATTEND Hospitalist
DX: I13.0 Hypertensive heart and chronic kidney disease with heart failure and stage 1 through stage 4 chronic kidney disease, or unspecified chronic kidney disease (principal); N17.0 Acute kidney failure with tubular necrosis; I50.43 Acute on chronic combined systolic (congestive) and diastolic (congestive) heart failure; E44.1 Mild protein-calorie malnutrition; R18.8 Other ascites; N18.31 Chronic kidney disease, stage 3a; E80.6 Other disorders of bilirubin metabolism; E78.5 Hyperlipidemia, unspecified; F17.210 Nicotine dependence, cigarettes, uncomplicated; F15.10 Other stimulant abuse, uncomplicated; F12.90 Cannabis use, unspecified, uncomplicated; I42.8 Other cardiomyopathies; K40.90 Unilateral inguinal hernia, without obstruction or gangrene, not specified as recurrent; Z20.822 Contact with and (suspected) exposure to COVID-19; I08.1 Rheumatic disorders of both mitral and tricuspid valves; K80.20 Calculus of gallbladder without cholecystitis without obstruction; D63.8 Anemia in other chronic diseases classified elsewhere; R16.0 Hepatomegaly, not elsewhere classified; M47.817 Spondylosis without myelopathy or radiculopathy, lumbosacral region; N43.3 Hydrocele, unspecified; N49.2 Inflammatory disorders of scrotum; Z79.899 Other long term (current) drug therapy; Z79.82 Long term (current) use of aspirin; Z88.8 Allergy status to other drugs, medicaments and biological substances; Z82.49 Family history of ischemic heart disease and other diseases of the circulatory system; Z71.51 Drug abuse counseling and surveillance of drug abuser; Z71.6 Tobacco abuse counseling; Z68.28 Body mass index [BMI] 28.0-28.9, adult
CPT/HCPCS: 36415; 71045; 80048; 80053; 80305; 83735; 83880; 84100; 84484; 85025; 87081; 93005; 96374; 99285; C9113; J1940

== ENCOUNTER 2020-11-07 17:33 | Inpatient (IN) | payer OTHER, MEDICAID, SELFPAY ==
[~2020-11-07] VITALS: Ht 175.3 cm; Wt 72.6 kg
[~2020-11-07 17:33] MED LIST changes: -FURO-570 PO
[2020-11-07 17:56] VITALS: BP 117/89
--- NOTE | 2020-11-07 18:11 | NUR ---
PATIENT TRANSFERED TO BED 2 VIA JALIL. Addendum: 11/07/20 at 1829 by [facility] PT TRANSFERRED TO BED VIA W/C.
--- NOTE | 2020-11-07 18:22 | NUR ---
39 YO MALE BIBS WITH C/O 10/21 TESTICULAR PAIN, DESCRIBES SHARP, CONSTANT PAIN. PATIENT HAD OPERATION AT [facility] FOR TORN TESTICULAR MUSCLE ON SATURDAY 11/04, DC ON SATURDAY. PAIN BEGAN ON SATURDAY. PATIENT OBSERVED CLEAR DISCHARGE FROM INCISION SITE. NOTED SWELLING TO TESTES, CHARLA LOWER EXT SWELLING +2, NON PITTING. PMH: CHF ALLERGIES: MISOPROSTOL
[2020-11-07] MEDS ORDERED: ACETAMINOPHEN 325 MG TAB PO ONE (18:35)
[2020-11-07 18:51] LABS: BASOPHILS # (AUTO) 0.1 K/uL (0.00-0.22); EOSINOPHILS # (AUTO) 0.1 K/uL (0-0.4); EOSINOPHILS % (AUTO) 1.9 % (0.0-4.0); HEMATOCRIT 36.7 % (36-52); HEMOGLOBIN 11.5 g/dL (12.0-18.0); LYMPHOCYTES # (AUTO) 0.5 K/uL (2.0-11.5); LYMPHOCYTES % (AUTO) 10.2 % (20.5-51.1); MEAN CORPUSCULAR HEMOGLOBIN 24 pg (27-31); MEAN CORPUSCULAR HGB CONC 31 g/dL (33-37); MEAN CORPUSCULAR VOLUME 76.7 fL (80-94); MONOCYTES # (AUTO) 1.4 K/uL (0.8-1.0); MONOCYTES % (AUTO) 30.8 % (1.7-9.3); NEUTROPHILS # (AUTO) 2.6 K/uL (1.8-7.7); NEUTROPHILS % (AUTO) 55.1 % (42.2-75.2); PLATELET COUNT (AUTO) 200 K/uL (140-450); RED BLOOD CELL COUNT(AUTO) 4.78 MIL/uL (4.20-6.10); RED CELL DISTRIBUTION WIDTH 20.8 % (11.6-13.7); WHITE BLOOD COUNT (AUTO) 4.7 K/uL (4.8-10.8)
[2020-11-07 19:00] LABS: ANION GAP 12.8 (8-16); CARBON DIOXIDE 25.7 mmol/L (21-32); CREATININE 1.7 mg/dL (0.6-1.3); POTASSIUM 4.5 mmol/L (3.5-5.1)
--- NOTE | 2020-11-07 19:20 | NUR ---
REPORT AND CONTINUATION OF CARE GIVEN TO HILLARY GLEZ.
--- NOTE | 2020-11-07 19:20 | NUR ---
REPORT RECIEVED FROM HILLARY HANNAH FOR CONTINUITY OF CARE.
[2020-11-07] MEDS ORDERED: oxyCODONE/APAP 5/325 MG 1 TAB TAB PO ONE (19:25)
[2020-11-07] MEDS ORDERED: FUROSEMIDE 40 MG/4 ML VIAL IVP ONE (19:25)
--- NOTE | 2020-11-07 20:00 | NUR ---
PER LETITIA CORONADO, HOLD ON PO PERCOCET ORDER AT THIS TIME.
--- NOTE | 2020-11-07 20:05 | NUR ---
ULTRASOUND AT BEDSIDE.
[2020-11-07 20:21] LABS: BILIRUBIN,URINE NEGATIVE (NEGATIVE); BLOOD, URINE TRACE-I (NEGATIVE); LEUKOCYTE ESTERASE ,URINE NEGATIVE (NEGATIVE); NITRITE, URINE NEGATIVE (NEGATIVE); UGLUCOSE NEGATIVE (NEGATIVE)
[2020-11-07 20:23] LABS: APPEARANCE,URINE CLEAR (CLEAR); COLOR,URINE AMBER (YELLOW)
[2020-11-07 20:33] LABS: RBC,URINE 0-5 /HPF (0-5); WBC,URINE NONE SEEN /HPF (0-5)
--- NOTE | 2020-11-07 20:35 | NUR ---
PT UTILIZED URINAL. APPROX 400CC CLEAR, YELLOW URINE NOTED.
--- NOTE | 2020-11-07 20:46 | NUR ---
PT TAKEN TO XRAY VIA [facility] WITH TECH. RADHA
--- NOTE | 2020-11-07 20:51 | NUR ---
GERTRUDE OF NARES COLLECTED AND TAKEN TO LAB.
--- NOTE | 2020-11-07 20:54 | NUR ---
PT RETURNED FROM XRAY.
--- NOTE | 2020-11-07 21:00 | NUR ---
DANI EMT, AT BEDSIDE FOR EKG.
[2020-11-07] MEDS ORDERED: HYDR-1098 PO (21:02)
[2020-11-07] MEDS ORDERED: ISOS10TA9 PO (21:02)
[2020-11-07] MEDS ORDERED: ZOLPIDEM 5 MG TAB PO PRN (21:50)
[2020-11-07] MEDS ORDERED: ONDANSETRON 4 MG/2 ML VIAL IM/IVP PRN (21:50)
[2020-11-07] MEDS ORDERED: DOCUSATE SODIUM 100 MG GELCAP PO PRN (21:50)
[2020-11-07] MEDS ORDERED: POTASSIUM CHLORIDE 10 MEQ TABER PO PRN (21:50)
[2020-11-07] MEDS ORDERED: ACETAMINOPHEN 325 MG TAB PO PRN (21:50)
--- NOTE | 2020-11-07 22:03 | NUR ---
CALLED HILLARY SANTANA TO GIVE REPORT. STATED SHE WILL CALL BACK. AWAITING RETURN.
--- NOTE | 2020-11-07 22:18 | NUR ---
CALLED HILLARY SANTANA UNABLE TO TAKE REPORT AT THIS TIME. WILL TRY AGAIN.
--- NOTE | 2020-11-07 22:32 | NUR ---
PATIENT TAKEN TO 104B TELE VIA [facility] WITH AMARIS THORNTON AND DANI EMT. HILLARY SANTANA RECIEVED PT AT BEDSIDE WHERE REPORT WAS GIVEN.
[2020-11-07 22:35] LABS: BARBITURATE, URINE NEGATIVE ng/ml (NEG <=200); BENZODIAZEPINE, URINE POSITIVE ng/mL (NEG <=200); CANNABINOID, URINE NEGATIVE ng/mL (NEG <=50); COCAINE, URINE NEGATIVE ng/mL (NEG <=300); OPIATE, URINE NEGATIVE ng/mL (NEG <=2000); PHENCYCLIDINE SCREEN,URINE NEGATIVE ng/mL (NEG <=25)
[2020-11-07 22:40] VITALS: BP 130/72
--- NOTE | 2020-11-07 22:40 | NUR ---
NEW ADMISSION RECEIVED WITH DIAGNOSIS OF CHF EXACERBATION. PATIENT RECEIVED IN BED ALERT AND ORIENTED X 3. PATIENT EDUCATED TO MEDICAL PLAN OF CARE. RN DISCUSSED WITH PATIENT FALL AND SAFETY PRECAUTIONARY MEASURE, INTERVENTIONS R/T MEDICATION REGIMEN. CARDIAC SINUS RHYTHM. SR, ST. 20G IV TO LEFT AC PATENT AND IN PLACE. URINAL AT BEDSIDE. MED LASIX ONGOING. ADMISSION ASSESSMENT NOTED. DR. CALLAWAY NOTIFIED OF NEW ADMIT. NO ACUTE DISTRESS NOTED. MEDICAL CARE ONGOING. VSS.
[2020-11-07 22:45] LABS: PROTHROMBIN TIME 12.1 secs (10.8-13.4)
[2020-11-07 22:51] LABS: CHOL/HDL RATIO 3.2 (1-4.5); FREE T4 (FREE THYROXINE) 1.13 ng/dL (0.76-1.46); MAGNESIUM 2.1 mg/dL (1.8-2.4); PHOSPHORUS 3.3 mg/dL (2.5-4.9); THYROID STIMULATING HORMONE 1.43 uIU/mL (0.34-3.74)
[2020-11-08 04:12] VITALS: BP 126/70
--- NOTE | 2020-11-08 05:05 | NUR ---
PATIENT ALERT AND ORIENTED X 4. RESTING COMFORTABLY IN BED. PATIENT REQUESTING TO SPEAK WITH PHYSICIAN THIS AM. COMPLIANT WITH MEDICATION REGIMEN, FALL AND SAFETY PRECAUTIONS. BED IN LOWER POSITION. CALL LIGHT PLACED WITHIN REACH. 20G IV INTACT. NO COMPLAINT OF PAIN AT THIS TIME. SELF REPOSITIONS FOR COMFORT. NO CARDIAC DISTRESS NOTED. RESPIRATIONS EVEN AND UNLABORED. ACYANOTIC. NO ACUTE DISTRESS NOTED. VSS.
[2020-11-08 06:47] LABS: BASOPHILS # (AUTO) 0.1 K/uL (0.00-0.22); BASOPHILS % (AUTO) 1.3 % (0.0-2.0); EOSINOPHILS # (AUTO) 0.2 K/uL (0-0.4); EOSINOPHILS % (AUTO) 4.6 % (0.0-4.0); HEMATOCRIT 38.8 % (36-52); HEMOGLOBIN 12.1 g/dL (12.0-18.0); LYMPHOCYTES # (AUTO) 0.6 K/uL (2.0-11.5); LYMPHOCYTES % (AUTO) 12.6 % (20.5-51.1); MEAN CORPUSCULAR HEMOGLOBIN 24 pg (27-31); MEAN CORPUSCULAR HGB CONC 31 g/dL (33-37); MONOCYTES # (AUTO) 1.3 K/uL (0.8-1.0); MONOCYTES % (AUTO) 26.8 % (1.7-9.3); NEUTROPHILS # (AUTO) 2.6 K/uL (1.8-7.7); NEUTROPHILS % (AUTO) 54.7 % (42.2-75.2); PLATELET COUNT (AUTO) 179 K/uL (140-450); RED BLOOD CELL COUNT(AUTO) 5.04 MIL/uL (4.20-6.10); RED CELL DISTRIBUTION WIDTH 21.3 % (11.6-13.7); WHITE BLOOD COUNT (AUTO) 4.8 K/uL (4.8-10.8)
[2020-11-08 07:02] LABS: ANION GAP 11.5 (8-16); CARBON DIOXIDE 28.3 mmol/L (21-32); CREATININE 1.7 mg/dL (0.6-1.3); POTASSIUM 3.8 mmol/L (3.5-5.1)
--- NOTE | 2020-11-08 07:05 | NUR ---
RECIEVED REPORT FROM US ADMINISTRATIVE LAW JUDGE NURSE .PATIENT ALERT AND ORIENTED X 4. RESTING COMFORTABLY IN BED. BREATHING EVEN UNLABORED . CALL LIGHT PLACED WITHIN REACH. 20G IV INTACT. NO COMPLAINT OF PAIN AT THIS TIME. SELF REPOSITIONS FOR COMFORT. NO CARDIAC DISTRESS NOTED. RESPIRATIONS EVEN AND UNLABORED. NO ACUTE DISTRESS NOTED. ALL SAFETY MEASURES ON PLACE
[2020-11-08 08:00] VITALS: BP 138/81
[2020-11-08] MEDS: carvediloL 12.5 MG TAB PO SCH ×2 (08:54→22:12)
[2020-11-08] MEDS: LOSARTAN 25 MG TAB PO SCH (08:55)
[2020-11-08] MEDS: ECOTRIN 81 MG TABEC PO SCH (08:55)
[2020-11-08] MEDS: PANTOPRAZOLE 40 MG TABEC PO SCH (08:56)
--- NOTE | 2020-11-08 08:59 | NUR ---
PATIENT HAS BEEN SCREENED AND CATEGORIZED MODERATE NUTRITION RISK. PATIENT WILL BE SEEN WITHIN 3-5 DAYS OF ADMISSION. 11/10/20 11/12/[address]
[2020-11-08] MEDS ORDERED: FUROSEMIDE 20 MG/2 ML VIAL IVP SCH (09:00)
[2020-11-08] MEDS ORDERED: FUROSEMIDE 40 MG TAB PO SCH (09:00)
[2020-11-08] MEDS: HYDROcodone/APAP 7.5/325 MG 1 TAB PO PRN (09:03)
--- NOTE | 2020-11-08 09:10 | NUR ---
PT SITTING ON BED, NO SIGNS OF DISTRESS NOTED, PT COMPLAINS ABOUT PAIN GOT MEDICATED A PRN ORDER, PT TOLERATED MORNING MEDICATION WELL. ALL SAFETY MEASURES ON PLACE CALLS LIGHT WITHIN REACH.
--- NOTE | 2020-11-08 11:15 | NUR ---
PT ON BED, NO COMPLAINS, NO SOD NOTED, ALL SAFETY MEASURES ON PLACE, CALLS LIGHT WITHIN REACH
[2020-11-08 12:00] VITALS: BP 138/81
--- NOTE | 2020-11-08 12:27 | NUR ---
DC PLANNING PATIENT IS A 39-YEAR-OLD MALE ADMITTED ON THE [facility]/ER 11/07/20. DUE TO PATIENT HAVING CHEST PAIN W/ HX. OF CONGESTIVE HEART FAILURE. DRYING ROOM OPERATOR MET WITH PATIENT AT BEDSIDE DISCUSS AND GATHER HIS COLLATERAL INFORMATION. PATIENT LAST ADMISSION WAS 10/23/20. PER PATIENT HE JUST RECENTLY HAD AN OPERATION AT [facility] [place]UE TO ABDOMINAL HERNIA( ABOUT A WEEK AGO). PER PATIENT AFTER HE GOT OUT OF HIS LAST HOSPITALIZATION PATIENT WAS ALLOWED TO STAY FOR A COUPLE DAYS AT HIS MOTHER [place]. WHERE HIS SON AND DAUGHTER ARE CURRENTLY LIVING NOW. PER PATIENT HE HAS BEEN IN AND OUT HIS MOTHER [place] [facility] IN [facility] DUE TO PATIENT BEEN HOMELESS SINCE HE LOST HIS JOB ABOUT A YEAR AGO. PER PATIENT HE CAN ONLY STAY THERE FOR A COUPLE DAYS BUT EVENTUALLY HAS TO MOVED AND IS STILL IN THE PROCESS OF FINDING A GROUP HOME IN ONE OF THE PLACES IN THE LIST OF RESOURCES THIS AGRONOMY RESEARCH MANAGER PROVIDED TO HIM LAST TIME HE WAS HOSPITALIZED ([facility]) SW PROVIDED A LIST OF RESOURCES FOR HOMELESS SHELTERS AND LOW COST HOUSING. SW AGAIN PROVIDED PATIENT WITH RECOURSES FOR FOOD. PER PATIENT HE IS INDEPENDENT AND REPORTED NOT HAVING ADVANCE DIRECTIVES AND WAS NOT INTERESTED ON GETTING INFORMATION PACKET PROVIDED BY SW AT THE TIME OF VISIT. PATIENT REPORTED NOT HAVING OR NEEDING DME AT THIS TIME. PATIENT ALSO REPORTED NOT HAVING ANY ISSUES GETTING OR TAKING HIS MEDICATIONS THAT GETS FROM [facility] IN [place] REGULARLY. PATIENT STATED THAT HE DO NOT HAVE PRIMARY DOCTOR AT THIS TIME AND WILL LIKE TO GET A LIST OF PROVIDERS IN THIS AREA. SW PROVIDED PATIENT WITH A LIST OF PROVIDERS AND INFORM HIM THAT SW WILL SET UP HIS FOLLOW UP CARE APPOINTMENT WITH IN 7 DAYS AFTER DISCHARGE. PATIENT AGREED. PER PATIENT HE IS NOT CLOSE TO HIS EXTENDED FAMILY HOWEVER; THEY ASSIST HIM WHEN HE NEEDS HELP FROM HIS MOTHER [place] WHO IS IN THE CARE OF HIS CHILDREN. PATIENT REPORTED HE WILL BE GOING TO A GROUP HOME AFTER DISCHARGE AND WILL NOT NEED TRANSPORT DUE TO TAKING A BUS. SW WILL FOLLOW UP WITH PATIENT NEEDED.
--- NOTE | 2020-11-08 13:54 | NUR ---
PT ON BED, NO COMPLAINS, NO SOD NOTED, ALL SAFETY MEASURES ON PLACE, CALLS LIGHT WITHIN REACH
--- NOTE | 2020-11-08 15:20 | NUR ---
PT SITTING ON BED NO COMPLAINS, NO SOD NOTED, ALL SAFETY MEASURES ON PLACE, CALLS LIGHT WITHIN REACH
[2020-11-08 16:00] VITALS: BP 126/82
[2020-11-08] MEDS: FUROSEMIDE 40 MG/4 ML VIAL IVP SCH (16:59)
[2020-11-08] MEDS: guaiFENesin DM 200/20 MG-10 ML 10 ML UDC PO PRN (17:04)
--- NOTE | 2020-11-08 17:30 | NUR ---
PT SITTING ON BED NO COMPLAINS, NO SOD NOTED, PT COMPLAINS ABOUT COUGH GOT MEDICATED PRN ORDERALL SAFETY MEASURES ON PLACE, CALLS LIGHT WITHIN REACH
[2020-11-08 20:00] VITALS: BP 122/86
[2020-11-08] MEDS: ATORVASTATIN 20 MG TAB PO SCH (22:12)
[2020-11-09] VITALS: BP 120/85
[2020-11-09] MEDS: guaiFENesin DM 200/20 MG-10 ML 10 ML UDC PO PRN (00:47)
[2020-11-09] MEDS: HYDROcodone/APAP 7.5/325 MG 1 TAB PO PRN ×3 (00:54→23:46)
[2020-11-09 04:00] VITALS: BP 118/82
--- NOTE | 2020-11-09 07:10 | NUR ---
RECEIVED CHANGE OF SHIFT REPORT FROM NIGHT NURSE AT BEDSIDE FOR CONTINUITY OF CARE. REVIEWED AND WILL CONTINUE WITH POC. PT ASLEEP DURING BEDSIDE REPORT. NURSE REPORTS WHEN PT IS AWAKE PT IS AA&OX4 AND AMBULATORY. PT ON RA BREATHING NORMAL AND UNLABORED. NURSE REPORTS PT WAS ST ON TELE. SKIN IS WARM, DRY, AND INTACT. IV IS PATENT AND INTACT.
[2020-11-09 07:32] LABS: BASOPHILS % (AUTO) 0.4 % (0.0-2.0); EOSINOPHILS # (AUTO) 0.1 K/uL (0-0.4); EOSINOPHILS % (AUTO) 0.6 % (0.0-4.0); HEMATOCRIT 38.1 % (36-52); HEMOGLOBIN 12.1 g/dL (12.0-18.0); LYMPHOCYTES # (AUTO) 0.8 K/uL (2.0-11.5); LYMPHOCYTES % (AUTO) 8.5 % (20.5-51.1); MEAN CORPUSCULAR HEMOGLOBIN 24 pg (27-31); MEAN CORPUSCULAR HGB CONC 32 g/dL (33-37); MEAN CORPUSCULAR VOLUME 76.2 fL (80-94); MONOCYTES # (AUTO) 2.2 K/uL (0.8-1.0); MONOCYTES % (AUTO) 22.9 % (1.7-9.3); NEUTROPHILS # (AUTO) 6.4 K/uL (1.8-7.7); NEUTROPHILS % (AUTO) 67.6 % (42.2-75.2); PLATELET COUNT (AUTO) 190 K/uL (140-450); RED CELL DISTRIBUTION WIDTH 20.7 % (11.6-13.7); WHITE BLOOD COUNT (AUTO) 9.4 K/uL (4.8-10.8)
[2020-11-09 07:40] LABS: CARBON DIOXIDE 28.7 mmol/L (21-32); CREATININE 1.4 mg/dL (0.6-1.3); POTASSIUM 3.7 mmol/L (3.5-5.1)
[2020-11-09 08:00] VITALS: BP 96/62
[2020-11-09] MEDS: carvediloL 12.5 MG TAB PO SCH ×2 (09:00→20:17)
[2020-11-09] MEDS: LOSARTAN 25 MG TAB PO SCH (09:00)
--- NOTE | 2020-11-09 09:00 | NUR ---
PT CONDITION IS STABLE. PT IS ASLEEP AND DOES NOT APPEAR TO BE IN PAIN OR DISTRESS. WILL CONTINUE TO MONITOR PT CONDITION.
[2020-11-09] MEDS: ECOTRIN 81 MG TABEC PO SCH (09:17)
[2020-11-09] MEDS: PANTOPRAZOLE 40 MG TABEC PO SCH (09:17)
--- NOTE | 2020-11-09 09:17 | NUR ---
ADMINISTERED NORCO PRN FOR PAIN 07/21. WILL REASSESS IN 1 HR.
[2020-11-09] MEDS: FUROSEMIDE 40 MG/4 ML VIAL IVP SCH ×2 (09:18→16:56)
--- NOTE | 2020-11-09 10:17 | NUR ---
PAIN REASSESSMENT COMPLETED. PT DENIES PAIN AND STATES HE FEELS MUCH BETTER.
--- NOTE | 2020-11-09 11:03 | NUR ---
PT CONDITION IS STABLE. PT IS AWAKE AND ASKED FOR A SNACK. GAVE HIM A HAM SANDWICH AND CRACKERS. PT DENIES PAIN OR DISCOMFORT AT THIS TIME.
[2020-11-09 12:00] VITALS: BP 107/71
--- NOTE | 2020-11-09 13:05 | NUR ---
PT CONDITION IS STABLE. PT IS ASLEEP AND DOES NOT APPEAR TO BE IN PAIN OR DISCOMFORT. WILL CONTINUE TO PERFORM FREQ ROUNDING.
--- NOTE | 2020-11-09 15:31 | NUR ---
PT CONDITION IS STABLE. PT IS AWAKE AND ASKED FOR A SNACK. GAVE PT PUDDING AND HALIMA CRACKERS. PT DENIES PAIN OR DISCOMFORT AT THIS TIME. WILL CONTINUE WITH FREQ MONITORING.
[2020-11-09 16:00] VITALS: BP 115/73
--- NOTE | 2020-11-09 17:35 | NUR ---
PT CONDITION IS STABLE. PT IS AWAKE, WATCHING TV, AND TALKING TO NEIGHBOR. PT DENIES PAIN AND DISCOMFORT.
--- NOTE | 2020-11-09 19:10 | NUR ---
GAVE CHANGE OF SHIFT REPORT TO NIGHT NURSE AT BEDSIDE FOR CONTINUITY OF CARE. DISCUSSED POC. PT STABLE.
--- NOTE | 2020-11-09 19:11 | NUR ---
RECEIVED REPORT FROM DAY SHIFT NURSE. PT RESTING WITH HOB ELEVATED. PT AAOX4, AMBULATORY AND ABLE TO MAKE NEEDS KNOWN. RESPIRATIONS EVEN AND UNLABORED TO ROOM AIR. PT NOT IN DISTRESS. ABDOMEN IS SOFT AND NON-TENDER, ACTIVE BOWEL SOUNDS NOTED. SKIN IS WARM, DRY, AND INTACT. IV ACCESS ON R AC G20 PATENT AND INTACT, SALINE LOCKED. PT DENIES ANY PAIN OR DISCOMFORT AT THIS TIME. NO REQUESTS MADE. POC DISCUSSED, CALL LIGHT WITHIN REACH. WILL CONTINUE TO MONITOR.
[2020-11-09 20:00] VITALS: BP 126/82
[2020-11-09] MEDS: ATORVASTATIN 20 MG TAB PO SCH (20:16)
--- NOTE | 2020-11-09 20:17 | NUR ---
VS STABLE. SCHEDULED MEDICATION GIVEN ORDERED. PT VERBALIZED TOLERABLE GROIN PAIN AT THIS TIME. NO OTHER REQUESTS MADE. PT KEPT COMFORTABLE, CALL LIGHT WITHIN REACH. WILL CONTINUE TO MONITOR.
--- NOTE | 2020-11-09 22:12 | NUR ---
PT PROVIDED WITH CRACKERS AND PUDDING REQUESTED. PT INSTRUCTED TO LIMIT FLUID INTAKE. NO OTHER REQUESTS MADE. WILL CONTINUE TO MONITOR.
--- NOTE | 2020-11-09 23:46 | NUR ---
PT COMPLAINING OF GROIN PAIN 6/10 AND CHEST DISCOMFORT EVERY TIME HE BREATHES IN/ PRN NORCO GIVEN ORDERED. VS STABLE. WILL CONTINUE TO MONITOR.
[2020-11-10] VITALS: BP 110/60
--- NOTE | 2020-11-10 01:56 | NUR ---
ASLEEP. VISIBLE CHEST RISE AND FALL NOTED. NO S/SX OF PAIN OR DISCOMFORT NOTED. PT KEPT COMFORTABLE. WILL CONTINUE TO MONITOR.
[2020-11-10 04:00] VITALS: BP 111/71
--- NOTE | 2020-11-10 04:12 | NUR ---
VS STABLE. PT RESTING COMFORTABLY IN BED. PT DENIES ANY PAIN OR DISCOMFORT AT THIS TIME. NO REQUESTS MADE. PT KEPT COMFORTABLE. CALL LIGHT WITHIN REACH. WILL CONTINUE TO MONITOR.
[2020-11-10 06:57] LABS: BASOPHILS % (AUTO) 0.5 % (0.0-2.0); EOSINOPHILS # (AUTO) 0.2 K/uL (0-0.4); EOSINOPHILS % (AUTO) 3.4 % (0.0-4.0); HEMATOCRIT 40.8 % (36-52); LYMPHOCYTES # (AUTO) 0.9 K/uL (2.0-11.5); LYMPHOCYTES % (AUTO) 16.7 % (20.5-51.1); MEAN CORPUSCULAR HEMOGLOBIN 24 pg (27-31); MEAN CORPUSCULAR HGB CONC 32 g/dL (33-37); MEAN CORPUSCULAR VOLUME 75.6 fL (80-94); MONOCYTES # (AUTO) 1.6 K/uL (0.8-1.0); MONOCYTES % (AUTO) 29.2 % (1.7-9.3); NEUTROPHILS # (AUTO) 2.8 K/uL (1.8-7.7); NEUTROPHILS % (AUTO) 50.2 % (42.2-75.2); PLATELET COUNT (AUTO) 184 K/uL (140-450); RED BLOOD CELL COUNT(AUTO) 5.39 MIL/uL (4.20-6.10); RED CELL DISTRIBUTION WIDTH 21.1 % (11.6-13.7); WHITE BLOOD COUNT (AUTO) 5.7 K/uL (4.8-10.8)
[2020-11-10 07:05] LABS: ANION GAP 11.3 (8-16); CARBON DIOXIDE 29.9 mmol/L (21-32); CREATININE 1.5 mg/dL (0.6-1.3); POTASSIUM 4.2 mmol/L (3.5-5.1)
--- NOTE | 2020-11-10 07:18 | NUR ---
REPORT GIVEN TO PEDRITO THORNTON FOR CONTINUITY OF CARE
--- NOTE | 2020-11-10 07:30 | NUR ---
RECEIVED PT IN BED, AAOX4. NO SOB NOTED. NO C/O PAIN AT THIS TIME. IV TO LAC PATENT AND INTACT. CHEST DIMINISHED AIR ENTRY TO THE BASES, OTHERWISE CLEAR. ABDOMEN SOFT, BOWEL SOUNDS PRESENT. INSTRUCTED PT TO CALL FOR ASSISTANCE, CALL LIGHT WITHIN REACH. VERBALIZED UNDERSTANDING.
[2020-11-10 08:00] VITALS: BP 121/87
[2020-11-10] MEDS: ECOTRIN 81 MG TABEC PO SCH (09:00)
[2020-11-10] MEDS: FUROSEMIDE 40 MG/4 ML VIAL IVP SCH (09:00)
[2020-11-10] MEDS: LOSARTAN 25 MG TAB PO SCH (09:01)
[2020-11-10] MEDS: carvediloL 12.5 MG TAB PO SCH ×2 (09:01→20:24)
[2020-11-10] MEDS: PANTOPRAZOLE 40 MG TABEC PO SCH (09:01)
[2020-11-10] MEDS: HYDROcodone/APAP 7.5/325 MG 1 TAB PO PRN ×2 (09:02→20:25)
[2020-11-10] MEDS: guaiFENesin DM 200/20 MG-10 ML 10 ML UDC PO PRN (09:03)
--- NOTE | 2020-11-10 11:35 | NUR ---
PT RESTING. NO SOB NOTED. NO SIGNS OF PAIN. ENDORSED TO RODRIGUEZ-RN FOR CONTINUITY OF CARE.
--- NOTE | 2020-11-10 11:36 | NUR ---
RECEIVED PATIENT TO CONTINUE OF CARE. PATIENT IS SITTING IN BED, A/A/O X4. ON TELE MONITOR. RESPIRATORY EVEN AND UNLABORED, ON ROOM AIR. NO SIGN OF DISTRESS NOTED. SKIN WARM, DRY, INTACT. IV ON LEFT AC 20G, INTACT AND PATENT, SALINE LOCK. PATIENT DENIES ANY PAIN OR DISCOMFORT. ABLE TO MAKE NEED KNOW. PLAN OF CARE DISCUSSED. PATIENT VERBALIZED UNDERSTANDING. CALL LIGHT WITHIN REACH. WILL CONTINUE TO MONITOR.
[2020-11-10 12:00] VITALS: BP 107/73
--- NOTE | 2020-11-10 13:30 | NUR ---
PATIENT IS AWAKE, RESTING IN BED, NO SIGN OF DISTRESS NOTED. PRECAUTION IN PLACE. CALL LIGHT WITHIN REACH. WILL CONTINUE TO MONITOR.
--- NOTE | 2020-11-10 15:00 | NUR ---
PATIENT IS SLEEPING, CHEST RISE AND FALL NOTED, NO SIGN OF DISTRESS NOTED. CALL LIGHT WITHIN REACH. WILL CONTINUE TO MONITOR.
[2020-11-10 16:00] VITALS: BP 106/71
[2020-11-10] MEDS: FUROSEMIDE 40 MG TAB PO SCH (16:33)
--- NOTE | 2020-11-10 16:33 | NUR ---
SCHEDULE MEDICATION GIVEN WITH EDUCATION. PATIENT VERBALIZED UNDERSTANDING. CALL LIGHT WITHIN REACH. WILL CONTINUE TO MONITOR.
--- NOTE | 2020-11-10 17:54 | NUR ---
PATIENT IS EATING SANDWICH, NO SIGN OF DISTRESS NOTED. CALL LIGHT WITHIN REACH. WILL CONTINUE TO MONITOR.
--- NOTE | 2020-11-10 19:25 | NUR ---
ENDORSED PATIENT TO MECHANICAL SUPERVISOR NURSE FOR CONTINUITY OF CARE. PATIENT IS STABLE.
[2020-11-10 19:51] VITALS: BP 130/70
--- NOTE | 2020-11-10 19:54 | NUR ---
I RECEIVED PT IN BED ALERT ORIENTED X4 , DENEIS PAIN , VSS , ON RA CLEAR LUNGS , SKIN INTACT , SLINTACT AND PATENT
[2020-11-10] MEDS: ATORVASTATIN 20 MG TAB PO SCH (21:00)
--- NOTE | 2020-11-10 22:29 | NUR ---
pt is sleepig well after andrez noyola and sarah , no pain
[2020-11-11] VITALS: BP 130/74
[2020-11-11] MEDS: HYDROcodone/APAP 7.5/325 MG 1 TAB PO PRN ×2 (00:07→05:20)
[2020-11-11] MEDS: guaiFENesin DM 200/20 MG-10 ML 10 ML UDC PO PRN (02:13)
[2020-11-11 04:00] VITALS: BP 128/68
--- NOTE | 2020-11-11 05:33 | NUR ---
PT C/O BACK PAIN SIRIACO IS GIVEN AM CARE GIVEN LINEN CHANGE PT WENT BACK TO SLEEP.
[2020-11-11 06:33] LABS: BASOPHILS % (AUTO) 0.4 % (0.0-2.0); EOSINOPHILS # (AUTO) 0.3 K/uL (0-0.4); HEMATOCRIT 41.5 % (36-52); HEMOGLOBIN 13.2 g/dL (12.0-18.0); LYMPHOCYTES # (AUTO) 1.1 K/uL (2.0-11.5); LYMPHOCYTES % (AUTO) 21.8 % (20.5-51.1); MEAN CORPUSCULAR HEMOGLOBIN 24 pg (27-31); MEAN CORPUSCULAR HGB CONC 32 g/dL (33-37); MEAN CORPUSCULAR VOLUME 76.4 fL (80-94); MONOCYTES # (AUTO) 1.4 K/uL (0.8-1.0); MONOCYTES % (AUTO) 26.7 % (1.7-9.3); NEUTROPHILS # (AUTO) 2.3 K/uL (1.8-7.7); NEUTROPHILS % (AUTO) 45.1 % (42.2-75.2); PLATELET COUNT (AUTO) 202 K/uL (140-450); RED BLOOD CELL COUNT(AUTO) 5.43 MIL/uL (4.20-6.10); RED CELL DISTRIBUTION WIDTH 21.2 % (11.6-13.7); WHITE BLOOD COUNT (AUTO) 5.1 K/uL (4.8-10.8)
[2020-11-11 07:03] LABS: ANION GAP 12.4 (8-16); CARBON DIOXIDE 27.4 mmol/L (21-32); CREATININE 1.5 mg/dL (0.6-1.3); POTASSIUM 3.8 mmol/L (3.5-5.1)
--- NOTE | 2020-11-11 07:11 | NUR ---
PT ENDORSED BY COMPOUNDING AND FINISHING SUPERVISOR NURSE FOR CONTINUITY OF CARE, POC DISCUSSED. PT LAYING IN BED RESTING COMFORTABLY WITH NO ACUTE S/S OF DISTRESS. PT ON ROOM AIR WITH EVEN AND UNLABORED BREATHE SOUNDS. SKIN INTACT. PT HAS A RIGHT FOREARM 22G. PT ALERT AND ORIENTED X4, ALL NEEDS MET AT THIS TIME. CALL LIGHT WITHIN REACH. ALL SAFETY MEASURES IN PLACE, WILL CONTINUE TO MONITOR.
[2020-11-11 08:00] VITALS: BP 129/86
[2020-11-11] MEDS: FUROSEMIDE 40 MG TAB PO SCH (08:26)
[2020-11-11] MEDS: ECOTRIN 81 MG TABEC PO SCH (08:27)
[2020-11-11] MEDS: LOSARTAN 25 MG TAB PO SCH (08:27)
[2020-11-11] MEDS: PANTOPRAZOLE 40 MG TABEC PO SCH (08:28)
[2020-11-11] MEDS: carvediloL 12.5 MG TAB PO SCH (08:28)
--- NOTE | 2020-11-11 08:34 | NUR ---
SCHEDULED MEDICATIONS ADMINISTERED. PATIENT EDUCATION PROVIDED. PATIENT COOPERATED. IV PATENT AND INTACT. LUNG SOUNDS CLEAR. HERNIA REPAIR, INCISION CLOSED, INTACT, NO DRAINAGE NOTED. ALL NEEDS MET AT THIS TIME. ALL SAFETY MEASURES IN PLACE, CALL LIGHT WITHIN REACH, WILL CONTINUE TO MONITOR
--- NOTE | 2020-11-11 13:23 | NUR ---
DC PLANNING: CM MADE A F/U APPOINTMENT WITH THE PATIENTS SURGEON, DR TERI ALEXIS FOR NEXT SATURDAY AT 9 AM. CM GAVE THE PATIENT AN APPOINTMENT CARD WITH THE MD'S ADDRESS, PHONE NUMBER AND APPOINTMENT DATE AND TIME. THE PATIENT IS DISCHARGING TODAY, CM WILL FOLLOW NEEDED.
--- NOTE | 2020-11-11 13:44 | NUR ---
PT HAS BEEN DISCHARGED IN STABLE CONDITION, PT EDUCATION PROVIDED REGARDING MEDICATION, FOLLOW UP WITH MD, RETURN TO ED FOR WORSENING SYMPTOMS, RESOURCES PROVIDED REGARDING HOMELESS SHELTERS, BUS PASS PROVIDED. PT VERBALIZED UNDERSTANDING AND ALL NEEDS HAVE BEEN MET WITH NO CONCERNS. PT IV HAS BEEN REMOVED, CATH IN PLACE. PT ID BAND REMOVED. PT WALKED OUT TO THE FRONT LOBBY WITH BUS PASS PROVIDED. ALL BELONGINGS IN PTS POSSESSION.
== END 2020-11-11 13:44 | disposition home or self-care (01) | DRG 291 ==
LOC: MED 17:33 → MTU 20:55
PROVIDERS: ADMIT Family Medicine; ATTEND Family Medicine
DX: I13.0 Hypertensive heart and chronic kidney disease with heart failure and stage 1 through stage 4 chronic kidney disease, or unspecified chronic kidney disease (principal); N17.0 Acute kidney failure with tubular necrosis; I50.43 Acute on chronic combined systolic (congestive) and diastolic (congestive) heart failure; G92.9 Unspecified toxic encephalopathy; N43.2 Other hydrocele; I42.8 Other cardiomyopathies; E78.5 Hyperlipidemia, unspecified; N18.9 Chronic kidney disease, unspecified; I08.1 Rheumatic disorders of both mitral and tricuspid valves; Z20.822 Contact with and (suspected) exposure to COVID-19; F17.210 Nicotine dependence, cigarettes, uncomplicated; F15.10 Other stimulant abuse, uncomplicated; Z79.899 Other long term (current) drug therapy; Z79.82 Long term (current) use of aspirin; Z71.51 Drug abuse counseling and surveillance of drug abuser; Z71.6 Tobacco abuse counseling; Z82.49 Family history of ischemic heart disease and other diseases of the circulatory system
CPT/HCPCS: 36415; 71045; 76870; 80048; 80305; 81001; 82150; 83036; 83690; 83735; 83880; 84100; 84436; 84439; 84443; 84479; 84484; 85025; 85610; 85730; 87081; 93005; 96374; 99285; J1940; Q0092

== ENCOUNTER 2021-02-21 01:57 | Emergency (ER) | payer MEDICAID, OTHER ==
[~2021-02-21] VITALS: Ht 175.3 cm; Wt 75.7 kg
[~2021-02-21 01:57] MED LIST changes: +AZIT250T4 PO; +PANT40EC56 PO; +POTA10TA70 PO; -POTA10TE30 PO; +TAM75 PO
[2021-02-21 02:15] VITALS: BP 137/88
[2021-02-21] MEDS ORDERED: ASPIRIN 325 MG TAB PO ONE (02:35)
[2021-02-21] MEDS ORDERED: NITROGLYCERIN 0.4 MG TAB SL ONE (02:35)
--- NOTE | 2021-02-21 02:37 | NUR ---
40 YO/M BIB SELF W C/O MID-STERNAL CHEST PAIN PRESSURE/SHARP 09/20 NON-RAD INTERMITTTENT X3 DAYS + SOB. PT DENIES FEVERS/CHILLS, N/V/D. PT REPORTS DIZZYNESS YESTERDAY BUT NONE TODAY. PT TACHYPNEIC 24RR, TACHYCARDIC 104HR, HYPERTENSIVE 143/101. PT LAYING IN BED W HOB ELEVATED, O2 SAT 98% ON RA. PT PLACED IN GOWN, ON MONITOR, AND PROVIDED W BLANKET. NAD NOTED, WILL CONTINUE TO MONITOR. PMH:CHF, HTN ALLERGIES: MISOPROSTOL
[2021-02-21 03:33] LABS: BASOPHILS # (AUTO) 0.2 K/uL (0.00-0.22); EOSINOPHILS # (AUTO) 0.3 K/uL (0-0.4); HEMATOCRIT 36.8 % (36-52); HEMOGLOBIN 12.1 g/dL (12.0-18.0); LYMPHOCYTES # (AUTO) 1.2 K/uL (2.0-11.5); MEAN CORPUSCULAR HEMOGLOBIN 26 pg (27-31); MEAN CORPUSCULAR HGB CONC 33 g/dL (33-37); MEAN CORPUSCULAR VOLUME 80.1 fL (80-94); MONOCYTES # (AUTO) 0.7 K/uL (0.8-1.0); MONOCYTES % (AUTO) 14.6 % (1.7-9.3); NEUTROPHILS # (AUTO) 2.7 K/uL (1.8-7.7); NEUTROPHILS % (AUTO) 53.4 % (42.2-75.2); PLATELET COUNT (AUTO) 208 K/uL (140-450); RED BLOOD CELL COUNT(AUTO) 4.59 MIL/uL (4.20-6.10); RED CELL DISTRIBUTION WIDTH 24.3 % (11.6-13.7)
[2021-02-21 04:13] LABS: ANION GAP 13.7 (8-16); CARBON DIOXIDE 23.4 mmol/L (21-32); CREATININE 1.6 mg/dL (0.6-1.3); POTASSIUM 4.1 mmol/L (3.5-5.1)
--- NOTE | 2021-02-21 04:43 | NUR ---
PT APPEARS TO BE RESTING W EYES CLOSED IN SUPINE POSITION. BED LOCKED INLOWEST POSITION W X2 SIDERAILS UP FOR PT SEFETY. BREATHING EVEN AND UNLABORED. VSS. NAD NOTED, WILL CONTINUE TO MONITOR.
[2021-02-21] MEDS ORDERED: IBUP-1842 PO (05:38)
[2021-02-21] MEDS ORDERED: PANT40EC PO (05:38)
[2021-02-21] MEDS ORDERED: IBUPROFEN 400 MG TAB PO ONE (05:45)
--- NOTE | 2021-02-21 05:55 | NUR ---
DROPPED MOTRIN MED, NEW MOTRIN PILL DRAWN AND ADMIN.
--- NOTE | 2021-02-21 06:12 | NUR ---
PT REPORTS FEELING SLIGHTLY BETTER AT THIS TIME.
[2021-02-21 06:22] VITALS: BP 140/106
--- NOTE | 2021-02-21 06:22 | NUR ---
Patient discharged with v/s stable. Written and verbal after care instructions given and explained. Patient alert, oriented and verbalized understanding of instructions. Ambulatory with steady gait. All questions addressed prior to discharge. ID band removed. Patient advised to follow up with PMD. Rx of MOTRIN, PROTONIX given. Patient educated on indication of medication including possible reaction and side effects. Opportunity to ask questions provided and answered.
== END 2021-02-21 06:22 | disposition home or self-care (01) ==
LOC: MED 01:57
DX: R07.89 Other chest pain (principal); J44.9 Chronic obstructive pulmonary disease, unspecified; I11.0 Hypertensive heart disease with heart failure; I50.9 Heart failure, unspecified; Z79.82 Long term (current) use of aspirin; Z79.899 Other long term (current) drug therapy; Z88.8 Allergy status to other drugs, medicaments and biological substances
CPT/HCPCS: 36415; 71045; 80053; 84484; 85025; 93005; 99285; Q0092

== ENCOUNTER 2021-02-27 16:34 | Inpatient (IN) | payer OTHER, MEDICAID, SELFPAY ==
[~2021-02-27] VITALS: Ht 180.3 cm; Wt 77.1 kg
[~2021-02-27 16:34] MED LIST changes: +IBUP-1842 PO; +PANT40EC PO
[2021-02-27 17:03] VITALS: BP 148/110
[2021-02-27] MEDS ORDERED: FUROSEMIDE 40 MG/4 ML VIAL IVP ONE (17:45)
--- NOTE | 2021-02-27 17:48 | NUR ---
MELISSA NELSON AND TAKEN TO BED 12 [facility]IA [facility]
--- NOTE | 2021-02-27 17:58 | NUR ---
40Y MALE BIBA FROM HOME DUE TO CHEST PAIN THAT RADIATES TO HIS EPIGASTRIC REGION X2 DAYS. PER FIRE THEY GAVE PATIENT 0.4MG NITRO AND ASPIRIN 324MG IN THE FIELD. CURRENT PAIN IS 10/10. BREATH SOUNDS CLEAR AT THIS TIME, BUT PT STATED "HE FEELS SOB." PT CURRENTLY SATING AT 99% RA. PT A&OX4, SKIN DRY AND INTACT. PT PLACED INTO GOWN AND PUT ON WAREHOUSE PERSON BEDSIDE PMH: CHF ALLERGIES: MISOPROSTOL
--- NOTE | 2021-02-27 17:58 | NUR ---
XRAY AT PATIENT BEDSIDE
[2021-02-27 18:54] LABS: BASOPHILS # (AUTO) 0.1 K/uL (0.00-0.22); BASOPHILS % (AUTO) 1.5 % (0.0-2.0); EOSINOPHILS # (AUTO) 0.3 K/uL (0-0.4); EOSINOPHILS % (AUTO) 4.6 % (0.0-4.0); HEMATOCRIT 37.2 % (36-52); LYMPHOCYTES # (AUTO) 1.4 K/uL (2.0-11.5); LYMPHOCYTES % (AUTO) 24.3 % (20.5-51.1); MEAN CORPUSCULAR HEMOGLOBIN 26 pg (27-31); MEAN CORPUSCULAR HGB CONC 32 g/dL (33-37); MEAN CORPUSCULAR VOLUME 80.1 fL (80-94); MONOCYTES # (AUTO) 0.8 K/uL (0.8-1.0); MONOCYTES % (AUTO) 14.6 % (1.7-9.3); NEUTROPHILS # (AUTO) 3.1 K/uL (1.8-7.7); PLATELET COUNT (AUTO) 234 K/uL (140-450); RED BLOOD CELL COUNT(AUTO) 4.64 MIL/uL (4.20-6.10); RED CELL DISTRIBUTION WIDTH 22.9 % (11.6-13.7); WHITE BLOOD COUNT (AUTO) 5.6 K/uL (4.8-10.8)
[2021-02-27 19:25] LABS: CARBON DIOXIDE 26.2 mmol/L (21-32); CREATININE 1.7 mg/dL (0.6-1.3); POTASSIUM 4.2 mmol/L (3.5-5.1); TOTAL BILIRUBIN 2.4 mg/dL (0.0-1.0)
[2021-02-27 19:26] LABS: ALBUMIN 3.1 g/dL (3.4-5.0)
--- NOTE | 2021-02-27 19:42 | NUR ---
Pt report given to HILLARY WILKINSON. Transfer of care at this time.
[2021-02-27] MEDS ORDERED: KETOROLAC 15 MG/ML VIAL IVP ONE (22:40)
--- NOTE | 2021-02-28 00:41 | NUR ---
MED REC COMPLETE TO THE BEST OF PATIENT'S RECOLECTION.
--- NOTE | 2021-02-28 02:40 | NUR ---
PT MOVED TO CHAIR C
--- NOTE | 2021-02-28 02:45 | NUR ---
ASSUMED CARE AT THIS TIME. PT LAYING SUPINE.NO C/O PAIN. ALL NEEDS MET. WILL CONTINUE TO MONITOR.
--- NOTE | 2021-02-28 04:39 | NUR ---
PT SEATED UPRIGHT IN BED. VISIBLE CHEST RISE AND FALL NOTED. NO CHEST PAIN. WILL CONTINUE TO MONITOR.
--- NOTE | 2021-02-28 07:28 | NUR ---
HANDOFF GIVEN TO HILLARY LU. TRANSFER OF CARE.
--- NOTE | 2021-02-28 07:41 | NUR ---
RECEIVED REPORT FROM HILLARY VARGAS. ASSUMED CARE AT THIS TIME.
[2021-02-28 08:19] LABS: BASOPHILS # (AUTO) 0.1 K/uL (0.00-0.22); BASOPHILS % (AUTO) 1.6 % (0.0-2.0); EOSINOPHILS # (AUTO) 0.3 K/uL (0-0.4); EOSINOPHILS % (AUTO) 5.1 % (0.0-4.0); HEMATOCRIT 36.7 % (36-52); HEMOGLOBIN 12.1 g/dL (12.0-18.0); LYMPHOCYTES # (AUTO) 1.1 K/uL (2.0-11.5); LYMPHOCYTES % (AUTO) 19.6 % (20.5-51.1); MEAN CORPUSCULAR HEMOGLOBIN 26 pg (27-31); MEAN CORPUSCULAR HGB CONC 33 g/dL (33-37); MEAN CORPUSCULAR VOLUME 80.4 fL (80-94); MONOCYTES # (AUTO) 0.8 K/uL (0.8-1.0); MONOCYTES % (AUTO) 14.2 % (1.7-9.3); NEUTROPHILS # (AUTO) 3.5 K/uL (1.8-7.7); NEUTROPHILS % (AUTO) 59.5 % (42.2-75.2); PLATELET COUNT (AUTO) 225 K/uL (140-450); RED BLOOD CELL COUNT(AUTO) 4.57 MIL/uL (4.20-6.10); RED CELL DISTRIBUTION WIDTH 22.8 % (11.6-13.7); WHITE BLOOD COUNT (AUTO) 5.8 K/uL (4.8-10.8)
--- NOTE | 2021-02-28 08:20 | NUR ---
PATIENT C/O 10/10 CHEST PAIN, PER DR. SANDOVAL PRN MEDS ORDERED GIVEN TORB.
[2021-02-28] MEDS ORDERED: HYDROcodone/APAP 5/325 MG 1 TAB TAB PO PRN ×2 (08:30→12:50)
[2021-02-28] MEDS ORDERED: FUROSEMIDE 20 MG/2 ML VIAL IVP ONE (08:49)
[2021-02-28 08:59] LABS: ANION GAP 12.5 (8-16); CARBON DIOXIDE 26.9 mmol/L (21-32); CREATININE 1.9 mg/dL (0.6-1.3); POTASSIUM 4.4 mmol/L (3.5-5.1)
[2021-02-28] MEDS ORDERED: FUROSEMIDE 40 MG/4 ML VIAL IVP SCH ×2 (09:00→17:00)
[2021-02-28] MEDS: MORPHINE SULFATE 2 MG/ML SYR IVP PRN ×2 (09:05→14:11)
--- NOTE | 2021-02-28 09:07 | NUR ---
PATIENT PROVIDED WITH BREAKFAST TRAY, PATIENT SITTING UP IN BED EATING. ALL NEEDS MET AT THIS TIME.
--- NOTE | 2021-02-28 09:07 | NUR ---
PATIENT MEDICATED FOR 10/10 CHEST PAIN ORDERED PRN.
--- NOTE | 2021-02-28 10:13 | NUR ---
PATIENT LAYIND DOWN WITH EYES CLOSED, RESPIRATIONS EVEN AND UNLABORED. ALL NEEDS MET AT THIS TIME.
--- NOTE | 2021-02-28 11:09 | NUR ---
GERTRUDE SWAB COLLECTED AND WALKED TO LAB
--- NOTE | 2021-02-28 11:10 | NUR ---
DR. SANDOVAL BEDSIDE SPEAKING WITH PATIENT
--- NOTE | 2021-02-28 12:34 | NUR ---
PATIENT PROVIDED WITH LUNCH TRAY, SITTING UP IN BED EATING. ALL NEEDS MET AT THIS TIME.
[2021-02-28] MEDS ORDERED: ACETAMINOPHEN 325 MG TAB PO PRN (12:50)
[2021-02-28] MEDS ORDERED: LORazepam 2 MG/ML VIAL IM/IVP PRN (12:50)
[2021-02-28] MEDS ORDERED: IBUPROFEN 400 MG TAB PO PRN (12:50)
[2021-02-28] MEDS ORDERED: ONDANSETRON 4 MG/2 ML VIAL IM/IVP PRN (12:50)
[2021-02-28] MEDS ORDERED: DOCUSATE SODIUM 100 MG GELCAP PO PRN (12:50)
[2021-02-28] MEDS ORDERED: POTASSIUM CHLORIDE 10 MEQ TABER PO PRN (12:50)
[2021-02-28] MEDS ORDERED: ZOLPIDEM 5 MG TAB PO PRN (12:50)
[2021-02-28] MEDS ORDERED: NON-FORMULARY ITEM (Tiotropium Bromide* (Spiriva Mdi*) 1 CAP) INH PRN (12:50)
[2021-02-28] MEDS ORDERED: MORPHINE SULFATE 2 MG/ML SYR IVP PRN (12:50)
[2021-02-28] MEDS ORDERED: MAG SULF 2000 MG/WATER PREMIX 50 ML IV PRN (12:50)
[2021-02-28] MEDS ORDERED: IPRATROPIUM 0.02% 0.5 MG/2.5 ML NEBU INH PRN (13:15)
--- NOTE | 2021-02-28 15:17 | NUR ---
PATIENT HAS BEEN SCREENED AND CATEGORIZED MODERATE NUTRITION RISK. PATIENT WILL BE SEEN WITHIN 3-5 DAYS OF ADMISSION. MATTHEW SALDANA RD
--- NOTE | 2021-02-28 17:16 | NUR ---
PATIENT LYING IN BED WITH EYES CLOSED, PROVIDED WITH A BLANKET FOR COMFORT. PATIENT ON BEDSIDE DIVING COACH, ALL NEEDS MET AT THIS TIME. WILL CONTINUE TO MONITOR.
--- NOTE | 2021-02-28 19:13 | NUR ---
PATIENT PROVIDED WITH DINNER TRAY, PATIENT SITTING UP IN BED EATING. ALL NEEDS MET AT THIS TIME.
[2021-02-28 20:19] LABS: CHOL/HDL RATIO 5.7 (1-4.5); THYROID STIMULATING HORMONE 0.79 uIU/mL (0.34-3.74)
[2021-02-28] MEDS ORDERED: ATORVASTATIN 20 MG TAB PO SCH (21:00)
[2021-02-28] MEDS ORDERED: FUROSEMIDE 40 MG TAB PO SCH (21:00)
[2021-02-28] MEDS ORDERED: OSELTAMIVIR PHOSPHATE 75 MG CAP PO SCH (21:00)
[2021-02-28] MEDS: carvediloL 12.5 MG TAB PO SCH (21:14)
--- NOTE | 2021-02-28 22:30 | NUR ---
PATIENT LYING IN BED WITH EYES CLOSED, WILL CONTINUE TO MONTIOR. ALL NEEDS MET AT THIS TIME.
--- NOTE | 2021-02-28 23:31 | NUR ---
Pt report given to HILLARY PIERCE. Transfer of care at this time.
[2021-03-01] MEDS: MORPHINE SULFATE 2 MG/ML SYR IVP PRN (00:41)
--- NOTE | 2021-03-01 00:41 | NUR ---
C/O 09/20 PAIN. MEDICATED WITH PRN MORPHINE 2MG IVP
--- NOTE | 2021-03-01 01:32 | NUR ---
PT AMBULATED TO BATHROOM W STEADY GAIT.
--- NOTE | 2021-03-01 01:34 | NUR ---
PT PROVIDED Toni WEBB AND JUICE AT THIS TIME.
--- NOTE | 2021-03-01 05:00 | NUR ---
Pt report given to HILLARY GONZALEZ. Transfer of care at this time.
[2021-03-01 07:08] LABS: T4 (THYROXINE) 5.4 ug/dL (4.5-12.0)
[2021-03-01 08:58] LABS: BASOPHILS # (AUTO) 0.1 K/uL (0.00-0.22); BASOPHILS % (AUTO) 1.3 % (0.0-2.0); EOSINOPHILS # (AUTO) 0.4 K/uL (0-0.4); EOSINOPHILS % (AUTO) 6.7 % (0.0-4.0); HEMATOCRIT 36.9 % (36-52); HEMOGLOBIN 11.9 g/dL (12.0-18.0); LYMPHOCYTES # (AUTO) 1.1 K/uL (2.0-11.5); LYMPHOCYTES % (AUTO) 20.1 % (20.5-51.1); MEAN CORPUSCULAR HEMOGLOBIN 26 pg (27-31); MEAN CORPUSCULAR HGB CONC 32 g/dL (33-37); MONOCYTES # (AUTO) 0.8 K/uL (0.8-1.0); MONOCYTES % (AUTO) 15.4 % (1.7-9.3); NEUTROPHILS % (AUTO) 56.5 % (42.2-75.2); PLATELET COUNT (AUTO) 228 K/uL (140-450); RED BLOOD CELL COUNT(AUTO) 4.55 MIL/uL (4.20-6.10); RED CELL DISTRIBUTION WIDTH 22.7 % (11.6-13.7); WHITE BLOOD COUNT (AUTO) 5.3 K/uL (4.8-10.8)
[2021-03-01] MEDS ORDERED: PANTOPRAZOLE 40 MG TABEC PO SCH ×2 (09:00)
[2021-03-01] MEDS ORDERED: POTASSIUM CHLORIDE 10 MEQ TABER PO SCH (09:00)
[2021-03-01] MEDS ORDERED: LOSARTAN 25 MG TAB PO SCH (09:00)
[2021-03-01] MEDS ORDERED: ECOTRIN 81 MG TABEC PO SCH (09:00)
[2021-03-01 09:09] LABS: MAGNESIUM 1.7 mg/dL (1.8-2.4)
[2021-03-01 09:21] LABS: ANION GAP 8.6 (8-16); CARBON DIOXIDE 30.8 mmol/L (21-32); CREATININE 1.6 mg/dL (0.6-1.3); POTASSIUM 4.4 mmol/L (3.5-5.1)
--- NOTE | 2021-03-01 09:27 | NUR ---
Patient appears to be resting comfortably in bed. Vital Signs within normal limits. Respirations even and unlabored.
[2021-03-01] MEDS ORDERED: ASPIRIN 81 MG TAB.CHEW ONE (13:08)
[2021-03-01] MEDS: carvediloL 12.5 MG TAB PO SCH (13:36)
[2021-03-01] MEDS ORDERED: FURO40TA9 PO (14:25)
[2021-03-01] MEDS ORDERED: CARV12.5 PO (14:25)
[2021-03-01] MEDS ORDERED: IBUP-1842 PO (14:25)
[2021-03-01] MEDS ORDERED: LOSA25TA1 PO (14:25)
[2021-03-01] MEDS ORDERED: POTA10TA70 PO (14:25)
[2021-03-01] MEDS ORDERED: ATOR40TA PO (14:25)
[2021-03-01] MEDS ORDERED: PANT40EC PO (14:25)
[2021-03-01] MEDS ORDERED: PANT40EC56 PO (14:25)
[2021-03-01] MEDS ORDERED: ASPI-1856 PO (14:25)
[2021-03-01 15:02] VITALS: BP 140/75
--- NOTE | 2021-03-01 15:17 | NUR ---
PT CLEARED FOR DISCHARGE BY DR SANDOVAL INPATIENT TELE HOLD. VSS. IV REMOVED AND GAUZE APPLIED. DISCHARGE INSTRUCTIONS GIVEN. PT PROVIDED WITH BUS PASS AND LUNCH.
[2021-03-01] MEDS ORDERED: FUROSEMIDE 40 MG TAB PO SCH (17:00)
== END 2021-03-01 15:17 | disposition home or self-care (01) | DRG 291 ==
LOC: MED 16:34 → MTU 23:56
DX: I13.0 Hypertensive heart and chronic kidney disease with heart failure and stage 1 through stage 4 chronic kidney disease, or unspecified chronic kidney disease (principal); I50.43 Acute on chronic combined systolic (congestive) and diastolic (congestive) heart failure; N17.0 Acute kidney failure with tubular necrosis; E44.1 Mild protein-calorie malnutrition; I42.9 Cardiomyopathy, unspecified; N18.1 Chronic kidney disease, stage 1; I25.10 Atherosclerotic heart disease of native coronary artery without angina pectoris; E78.5 Hyperlipidemia, unspecified; K21.9 Gastro-esophageal reflux disease without esophagitis; F12.10 Cannabis abuse, uncomplicated; Z20.822 Contact with and (suspected) exposure to COVID-19; Z68.23 Body mass index [BMI] 23.0-23.9, adult
CPT/HCPCS: 36415; 71045; 80048; 80053; 83036; 83690; 83735; 83880; 84100; 84134; 84436; 84443; 84484; 85025; 85610; 85730; 96374; 96375; 99285; J1644; J1885; J1940; J2270; Q0092

== ENCOUNTER 2021-05-30 09:15 | Inpatient (IN) | payer OTHER, MEDICAID ==
[~2021-05-30] VITALS: Ht 175.3 cm; Wt 76.7 kg
[~2021-05-30 09:15] MED LIST changes: -AZIT250T4 PO; -SPIMDI INH; -TAM75 PO
[2021-05-30 09:19] VITALS: BP 157/109
--- NOTE | 2021-05-30 09:24 | NUR ---
Patient ambulated to bed 09 with steady/even gait
--- NOTE | 2021-05-30 09:34 | NUR ---
40 Y/O MALE C/O CHEST PAIN, PRESSURE 8/10, DIFFICULTY BREATHING RR 22, 97% ON RA LUNG SOUNDS CLEAR, RODRIGUEZ 7/10 PRESSURE, FRONTAL RODRIGUEZ, DIZZINESS, NAUSEA XFRIDAY. PT STATES THAT THEY RAN OUT OF THEIR MEDICATION X3DAYS. NORMALLY NON-COMPLIANT. NO SWELLING NOTED ON EXTREMITIES, EYES APPEAR SWOLLEN. DENIES TAKING ANY MEDICATION FOR PAIN. PMH; CHF, HTN, ASTHMA ALLERGIES; MISOPROSTOL
[2021-05-30] MEDS ORDERED: ASPIRIN 325 MG TAB PO ONE (09:55)
--- NOTE | 2021-05-30 10:11 | NUR ---
BLOOD HANDED TO ELENA GUADARRAMA TECH
--- NOTE | 2021-05-30 10:21 | NUR ---
RAD at bedside
[2021-05-30 10:25] LABS: BASOPHILS # (AUTO) 0.1 K/uL (0.00-0.22); BASOPHILS % (AUTO) 1.1 % (0.0-2.0); EOSINOPHILS # (AUTO) 0.2 K/uL (0-0.4); EOSINOPHILS % (AUTO) 2.8 % (0.0-4.0); HEMATOCRIT 42.4 % (36-52); HEMOGLOBIN 13.5 g/dL (12.0-18.0); LYMPHOCYTES # (AUTO) 1.3 K/uL (2.0-11.5); MEAN CORPUSCULAR HEMOGLOBIN 24 pg (27-31); MEAN CORPUSCULAR HGB CONC 32 g/dL (33-37); MEAN CORPUSCULAR VOLUME 75.5 fL (80-94); MONOCYTES # (AUTO) 1.2 K/uL (0.8-1.0); MONOCYTES % (AUTO) 16.6 % (1.7-9.3); NEUTROPHILS # (AUTO) 4.7 K/uL (1.8-7.7); NEUTROPHILS % (AUTO) 62.5 % (42.2-75.2); PLATELET COUNT (AUTO) 251 K/uL (140-450); RED BLOOD CELL COUNT(AUTO) 5.62 MIL/uL (4.20-6.10); RED CELL DISTRIBUTION WIDTH 20.9 % (11.6-13.7); WHITE BLOOD COUNT (AUTO) 7.5 K/uL (4.8-10.8)
[2021-05-30] MEDS ORDERED: NITROGLYCERIN 2% 1 GM PKT TP ONE (10:25)
[2021-05-30] MEDS ORDERED: FUROSEMIDE 40 MG/4 ML VIAL IVP SCH (10:25)
--- NOTE | 2021-05-30 10:40 | NUR ---
GIVEN NITRO PASTE, FROM 8/10 CHEST PAIN TO 5/10 CHEST PAIN. NO SOB, NO NAUSEA, DIZZINESS NOTED
[2021-05-30 11:05] LABS: ALBUMIN 3.7 g/dL (3.4-5.0); ANION GAP 12.4 (8-16); CARBON DIOXIDE 28.3 mmol/L (21-32); POTASSIUM 3.7 mmol/L (3.5-5.1); TOTAL BILIRUBIN 0.6 mg/dL (0.0-1.0)
--- NOTE | 2021-05-30 12:11 | NUR ---
GERTRUDE WALKED TO LAB
[2021-05-30] MEDS ORDERED: ZOLPIDEM 5 MG TAB PO PRN (12:40)
[2021-05-30] MEDS ORDERED: POTASSIUM CHLORIDE 10 MEQ TABER PO PRN (12:40)
[2021-05-30] MEDS ORDERED: guaiFENesin DM 200/20 MG-10 ML 10 ML UDC PO PRN (12:40)
[2021-05-30] MEDS ORDERED: DOCUSATE SODIUM 100 MG GELCAP PO PRN (12:40)
[2021-05-30] MEDS ORDERED: ACETAMINOPHEN 325 MG TAB PO PRN (12:40)
[2021-05-30] MEDS ORDERED: HYDROcodone/APAP 7.5/325 MG 1 TAB PO PRN (12:40)
[2021-05-30] MEDS ORDERED: ONDANSETRON 4 MG/2 ML VIAL IM/IVP PRN (12:40)
--- NOTE | 2021-05-30 12:50 | NUR ---
URINE WALKED TO LAB, HANDED TO ELENA
--- NOTE | 2021-05-30 13:03 | NUR ---
CALLED FOR BED, TELE/MST CHARGE NURSE AT LUNCH, WILL CALL BACK WITH ROOM.
--- NOTE | 2021-05-30 13:10 | NUR ---
Patient will be admitted to care of DR MARTIN CARRILLO. Admited to TELEMETRY. Will go to room 112B. Belongings list completed. Report to HERNÁN THORNTON.
[2021-05-30 13:19] LABS: PROTHROMBIN TIME 12.5 secs (10.8-13.4)
[2021-05-30 13:40] VITALS: BP 132/97
[2021-05-30 16:00] VITALS: BP 146/103
[2021-05-30 16:12] LABS: CHOL/HDL RATIO 2.9 (1-4.5); FREE T4 (FREE THYROXINE) 0.95 ng/dL (0.76-1.46); MAGNESIUM 1.8 mg/dL (1.8-2.4); PHOSPHORUS 4.1 mg/dL (2.5-4.9); THYROID STIMULATING HORMONE 0.27 uIU/mL (0.34-3.74)
[2021-05-30] MEDS: FUROSEMIDE 40 MG/4 ML VIAL IVP SCH (17:00)
[2021-05-30] MEDS: ATORVASTATIN 20 MG TAB PO SCH (20:51)
[2021-05-30] MEDS: carvediloL 12.5 MG TAB PO SCH (20:51)
[2021-05-30] MEDS ORDERED: FUROSEMIDE 40 MG TAB PO SCH (21:00)
[2021-05-30] MEDS ORDERED: FUROSEMIDE 20 MG/2 ML VIAL IVP SCH (21:00)
[2021-05-30 21:55] VITALS: BP 143/98
--- NOTE | 2021-05-30 22:46 | NUR ---
PATIENT IN BED. NO ACUTE DISTRESS NOTED. NO COMPLAINT OF PAIN OR DISCOMFORT. WILL CONTINUE TO MONITOR.
[2021-05-31 04:00] VITALS: BP 128/85
[2021-05-31 06:43] LABS: BASOPHILS # (AUTO) 0.1 K/uL (0.00-0.22); BASOPHILS % (AUTO) 1.5 % (0.0-2.0); EOSINOPHILS # (AUTO) 0.3 K/uL (0-0.4); EOSINOPHILS % (AUTO) 4.8 % (0.0-4.0); HEMATOCRIT 42.7 % (36-52); HEMOGLOBIN 13.7 g/dL (12.0-18.0); LYMPHOCYTES # (AUTO) 1.3 K/uL (2.0-11.5); LYMPHOCYTES % (AUTO) 20.6 % (20.5-51.1); MEAN CORPUSCULAR HEMOGLOBIN 24 pg (27-31); MEAN CORPUSCULAR HGB CONC 32 g/dL (33-37); MEAN CORPUSCULAR VOLUME 75.3 fL (80-94); MONOCYTES # (AUTO) 1.1 K/uL (0.8-1.0); MONOCYTES % (AUTO) 18.8 % (1.7-9.3); NEUTROPHILS # (AUTO) 3.3 K/uL (1.8-7.7); NEUTROPHILS % (AUTO) 54.3 % (42.2-75.2); PLATELET COUNT (AUTO) 270 K/uL (140-450); RED BLOOD CELL COUNT(AUTO) 5.67 MIL/uL (4.20-6.10); RED CELL DISTRIBUTION WIDTH 20.3 % (11.6-13.7); WHITE BLOOD COUNT (AUTO) 6.1 K/uL (4.8-10.8)
[2021-05-31 07:03] LABS: ANION GAP 11.6 (8-16); CARBON DIOXIDE 26.3 mmol/L (21-32); CREATININE 1.3 mg/dL (0.6-1.3); POTASSIUM 3.9 mmol/L (3.5-5.1)
--- NOTE | 2021-05-31 07:05 | NUR ---
RECEIVED REPORT FROM SENIOR SOFTWARE DEVELOPMENT MANAGER NURSE FOR CONTINUITY OF CARE. PT IN BED RESTING AT THIS TIME. RESPIRATIONS ARE EVEN AND UNLABORED ON ROOM AIR. NO SIGNS OF DISTRESS NOTED. PT IS ALERT AND ORIENTED X4, COOPERATIVE, AND ABLE TO VERBALIZE NEEDS TO STAFF. PT IS ON CARDIAC MONITORING, SR AT THIS TIME. ABD IS NONTENDER, NONDISTENDED WITH BOWEL SOUNDS PRESENT. PT IS CONTINENT OF BOWEL AND BLADDER. PT ABLE TO AMBULATE INDEPENDENTLY. PT HAS IV TO R AC, 20G. SKIN IS WARM, DRY, AND INTACT. CALL LIGHT WITHIN REACH. ALL SAFETY MEASURES IN PLACE. WILL CONTINUE TO MONITOR.
[2021-05-31 08:00] VITALS: BP 133/97
[2021-05-31 08:08] LABS: T4 (THYROXINE) 5.4 ug/dL (4.5-12.0)
[2021-05-31] MEDS: FUROSEMIDE 40 MG/4 ML VIAL IVP SCH ×2 (09:15→17:37)
--- NOTE | 2021-05-31 09:15 | NUR ---
IV LASIK ADMINISTERED BY HILLARY HAMMER. WILL CONTINUE TO MONITOR.
--- NOTE | 2021-05-31 09:18 | NUR ---
PATIENT HAS BEEN SCREENED AND CATEGORIZED MODERATE NUTRITION RISK. PATIENT WILL BE SEEN WITHIN 3-5 DAYS OF ADMISSION. / MATTHWE SALDANA RD
[2021-05-31] MEDS: ECOTRIN 81 MG TABEC PO SCH (09:22)
[2021-05-31] MEDS: PANTOPRAZOLE 40 MG TABEC PO SCH (09:23)
[2021-05-31] MEDS: carvediloL 12.5 MG TAB PO SCH ×2 (09:23→20:26)
[2021-05-31] MEDS: LOSARTAN 25 MG TAB PO SCH (09:23)
--- NOTE | 2021-05-31 09:25 | NUR ---
ADMINISTERED ALL SCHEDULED MEDICATIONS. EDUCATED PT ON MEDS ADMINISTERED. ANSWERED ALL QUESTIONS. PT VERBALIZED UNDERSTANDING. WILL CONTINUE TO MONITOR.
[2021-05-31 12:00] VITALS: BP 127/93
--- NOTE | 2021-05-31 13:16 | NUR ---
DID ROUNDS ON PT. PT REQUESTING MORE FOOD, STATES HE DID NOT EAT TOO MUCH OF THE LUNCH PROVIDED TODAY BECAUSE HE DID NOT LIKE IT. PT REQUESTING A SANDWICH. BROUGHT PT A SANDWICH. WILL CONTINUE TO MONITOR.
[2021-05-31 14:18] LABS: APPEARANCE,URINE CLEAR (CLEAR); BILIRUBIN,URINE NEGATIVE (NEGATIVE); BLOOD, URINE NEGATIVE (NEGATIVE); COLOR,URINE YELLOW (YELLOW); LEUKOCYTE ESTERASE ,URINE NEGATIVE (NEGATIVE); NITRITE, URINE NEGATIVE (NEGATIVE); UGLUCOSE NEGATIVE (NEGATIVE)
[2021-05-31 14:28] LABS: BARBITURATE, URINE NEGATIVE ng/ml (NEG <=200); BENZODIAZEPINE, URINE NEGATIVE ng/mL (NEG <=200); CANNABINOID, URINE POSITIVE ng/mL (NEG <=50); COCAINE, URINE NEGATIVE ng/mL (NEG <=300); OPIATE, URINE NEGATIVE ng/mL (NEG <=2000); PHENCYCLIDINE SCREEN,URINE NEGATIVE ng/mL (NEG <=25)
[2021-05-31 16:00] VITALS: BP_SYST 109; BP_SYST 122; BP_DIAS 73; BP_DIAS 81
--- NOTE | 2021-05-31 17:38 | NUR ---
IV MEDICATION ADMINISTERED BY HILLARY HAMMER. WILL CONTINUE TO MONITOR.
--- NOTE | 2021-05-31 19:31 | NUR ---
ENDORSED PT TO POWER SYSTEM OPERATOR NURSE FOR CONTINUITY OF CARE. ALL NEEDS MET THROUGHOUT SHIFT. PT IS STABLE.
--- NOTE | 2021-05-31 19:32 | NUR ---
RECEIVED BEDSIDE REPORT FOR CONTINUITY OF PT CARE.
[2021-05-31 20:00] VITALS: BP 116/83
[2021-05-31] MEDS: ATORVASTATIN 20 MG TAB PO SCH (20:29)
--- NOTE | 2021-05-31 20:35 | NUR ---
PT STABLE, ON BED ASLEEP. NO SOB OR DISTRESS. SAFETY MEASURES IN PLACE, CALL LIGHT ON EASY REACH.
--- NOTE | 2021-05-31 22:45 | NUR ---
PATIENT AWAKE AND ALERT X 4. COOPERATIVE WITH TREATMENT.
[2021-06-01] VITALS: BP 123/82
--- NOTE | 2021-06-01 00:20 | NUR ---
PT ASLEEP WITH NO SOB OR DISTRESS. CONTINUE TO MONITOR.
--- NOTE | 2021-06-01 02:10 | NUR ---
PT STABLE WITH NO DISTRESS. COOPERATIVE. NO S/S OF INFECTION. CONTINUE MONITORING, NEEDS MET.
[2021-06-01 04:00] VITALS: BP 123/86
[2021-06-01 07:11] LABS: ANION GAP 10.4 (8-16); CARBON DIOXIDE 27.7 mmol/L (21-32); CREATININE 1.4 mg/dL (0.6-1.3); POTASSIUM 4.1 mmol/L (3.5-5.1)
--- NOTE | 2021-06-01 07:20 | NUR ---
RECEIVED REPORT FROM [employer] BENEFITS SPECIALIST NURSE FOR CONTINUITY OF CARE. PT IN HIS ROOM, UP AND BRUSHING HIS TEETH AT THIS TIME. RESPIRATIONS ARE EVEN AND UNLABORED ON ROOM AIR. NO SIGNS OF DISTRESS NOTED. PT IS ALERT AND ORIENTED X4, COOPERATIVE,ABLE TO FOLLOW COMMANDS, AND ABLE TO VERBALIZE NEEDS TO STAFF. PT IS ON CARDIAC MONITORING, SR AT THIS TIME. ABD IS NONTENDER, NONDISTENDED WITH BOWEL SOUNDS PRESENT. PT IS CONTINENT OF BOWEL AND BLADDER. PT ABLE TO AMBULATE INDEPENDENTLY. PT HAS IV TO R AC, 20G. SKIN IS WARM, DRY, AND INTACT. CALL LIGHT WITHIN REACH. ALL SAFETY MEASURES IN PLACE. WILL CONTINUE TO MONITOR
--- NOTE | 2021-06-01 07:20 | NUR ---
PATIENT IS STABLE, NO SOB OR DISTRESS. SAFETY MEASURES IS IN PLACE. CALL LIGHT WITHIN REACH. ENDORSED TO MORNING SHIFT NURSE FOR CONTINUITY OF CARE.
[2021-06-01 07:34] LABS: BASOPHILS # (AUTO) 0.1 K/uL (0.00-0.22); BASOPHILS % (AUTO) 1.3 % (0.0-2.0); EOSINOPHILS # (AUTO) 0.3 K/uL (0-0.4); EOSINOPHILS % (AUTO) 7.1 % (0.0-4.0); HEMATOCRIT 48.5 % (36-52); HEMOGLOBIN 15.8 g/dL (12.0-18.0); LYMPHOCYTES # (AUTO) 1.5 K/uL (2.0-11.5); LYMPHOCYTES % (AUTO) 30.1 % (20.5-51.1); MEAN CORPUSCULAR HEMOGLOBIN 24 pg (27-31); MEAN CORPUSCULAR HGB CONC 33 g/dL (33-37); MEAN CORPUSCULAR VOLUME 75.2 fL (80-94); MONOCYTES % (AUTO) 20.3 % (1.7-9.3); NEUTROPHILS % (AUTO) 41.2 % (42.2-75.2); PLATELET COUNT (AUTO) 294 K/uL (140-450); RED BLOOD CELL COUNT(AUTO) 6.45 MIL/uL (4.20-6.10); WHITE BLOOD COUNT (AUTO) 4.9 K/uL (4.8-10.8)
[2021-06-01 08:00] VITALS: BP 117/72
[2021-06-01] MEDS: ECOTRIN 81 MG TABEC PO SCH (08:45)
[2021-06-01] MEDS: PANTOPRAZOLE 40 MG TABEC PO SCH (08:45)
[2021-06-01] MEDS: FUROSEMIDE 40 MG/4 ML VIAL IVP SCH (08:58)
--- NOTE | 2021-06-01 08:58 | NUR ---
PT WAS GIVEN LASIX, IVP,BP IS 117/72, PULSE IS 72, PT HAS AN IV LINE ON THE RAC G. 20 ON SALINE LOCK, PT IS ALERT AND ORIENTED, ON RA, AND NO SIGN OF DISTRESS NOTED.
--- NOTE | 2021-06-01 09:11 | NUR ---
DC PLANNING: THE PATIENT ADMITTED TO THE ED FOR C/O SOB X 4 DAYS WITH CHEST PAIN, FATIGUE AND DIZZINESS. H/O OF HTN, HLD, CKD, CHF AND METH USE. ALSO HAS A H/O CIGARETTE SMOKING AND IS HOMELESS. CXR SHOWS CARDIOMEGALY WITH PULMONARY VASCULAR CONGESTION, BNP 1650, PATIENT GIVEN LASIX IV NITRO AND ASA PO IN ED. PATIENT ON RA, CONTINUED ON IV LASIX, ASA, GETA BLOCKERS AND LOSARTAN. CM SPOKE WITH THE PATIENT AT BEDSIDE, THE ADDRESS LISTED ON THE FACE SHEET IS HIS MOTHER IN [place] ADDRESS WHICH HE USES A MAILING ADDRESS. THE PATIENT HAS BEEN STAYING WITH A FRIEND INTERMITTENTLY BUT IS NOT SURE THAT HE CAN RETURN THERE WHEN HE'S DISCHARGED. STATES THAT HE HAS INCOME OF [employer] AND GETS FOOD STAMPS AND SOMETIMES STAYS IN A LONGTERM ON [place]. STATES HE IS NOT CURRENTLY USING METH AND IS COMPLIANT WITH HIS MEDICATIONS OF LASIX AND ANTI-HYPERTENSIVES. HE HAS THREE CHILDREN, TWO WHO LIVE LOCALLY WITH THEIR MOTHER AND HE DOES STAY IN TOUCH AND IS INVOLVED WITH THEM. HE TAKES A BUS OR WALKS TO WHERE HE NEEDS TO GO AND CURRENTLY DOES NOT HAVE A PCP. THE PATIENT WILL BE GIVEN RESOURCES BY THE PER HIS REQUEST, [facility] WILL FOLLOW. Addendum: 06/01/21 at 0919 by Dena Catalan CM Amended: Links added.
[2021-06-01] MEDS: carvediloL 12.5 MG TAB PO SCH (09:46)
[2021-06-01] MEDS: LOSARTAN 25 MG TAB PO SCH (09:46)
[2021-06-01 12:00] VITALS: BP 112/77
--- NOTE | 2021-06-01 12:26 | NUR ---
PT DOWNGRADE FROM TELE TO MS. WILL CONTINUE TO MONITOR.
[2021-06-01] MEDS ORDERED: ATOR40TA PO ×2 (13:16→13:22)
[2021-06-01] MEDS ORDERED: LOSA25TA1 PO ×2 (13:16→13:22)
[2021-06-01] MEDS ORDERED: CARV12.5 PO ×2 (13:16→13:22)
[2021-06-01] MEDS ORDERED: ASPI-1856 PO ×2 (13:16→13:22)
[2021-06-01] MEDS ORDERED: FURO40TA9 PO ×2 (13:16→13:22)
[2021-06-01 14:14] VITALS: BP 112/77
--- NOTE | 2021-06-01 14:50 | NUR ---
DISCHARGE ORDER IN PLACE. WENT OVER DISCHARGE WITH PT. ANSWERED ALL QUESTIONS. PT SIGNED ALL PAPERWORK. HOMELESS RESOURCES PROVIDED TO PT. TRANSPORTATION ARRANGED. AWAITING TRANSPORTATION.
--- NOTE | 2021-06-01 15:00 | NUR ---
REMOVED PT IV. IV CATHETER INTACT. REMOVED WRIST BAND. ALL BELONGINGS TAKEN UPON DISCHARGE. PT AMBULATED OUT OF UNIT. PT DISCHARGED TO [address] [place] [id number].
--- NOTE | 2021-06-01 15:06 | NUR ---
DC PLANNING PATIENT IS A 40-YEAR-OLD MALE ADMITTED ON THE [facility]/ED 05/30/2021 DUE TO COMPLAINTS OF SHORTNESS OF BREATH ASSOCIATED WITH CHEST PAIN, FATIGUE AND DIZZINESS. PATIENT HAS DIAGNOSIS HX. Of HTN, HLD, CKD and CHF. CLEANING STAFF SUPERVISOR MET WITH PATIENT AT BEDSIDE DISCUSS AND GATHER HIS COLLATERAL INFORMATION. PATIENT REPORTED THAT HE IS NOW LIVING IN HIS FRIENDS HOME FOR A WHILE, REPORTED HAVING CONTACT STILL WITH HIS MOTHER IN [place] AND NIECE YARED [place] AT WHO IS HIS EMERGENCY CONTACT. PATIENT REPORTED NOT HAVING ADVANCE DIRECTIVES AND WAS NOT INTERESTED ON GETTING INFORMATION PACKET PROVIDED BY SW AT THE TIME OF VISIT. SW HOWEVER; PROVIDED PATIENT WITH A LIST OF RESOURCES FOR HOMELESS SHELTERS AND LOW-COST HOUSING IN CASE PATIENT MAY NEED SOME RESOURCES IN THE FUTURE. SW ALSO PROVIDED PATIENT WITH RESOURCES FOR FOOD. PER PATIENT HE IS INDEPENDENT AND HAS NO NEED FOR DME. PATIENT ALSO REPORTED NOT HAVING ANY ISSUES GETTING OR TAKING HIS MEDIATIONS THAT GETS FROM [facility] IN [place] REGULARLY. PATIENT STATED THAT HE DO NOT HAVE A PRIMARY DOCTOR AT THIS TIME AND WILL LIKE TO GET A LIST OF PROVIDERS IN THIS AREA. SW PROVIDED PATIENT WITH A LIST OF PROVIDERS AND INFORM HIM THAT SW WILL SET UP HIS FOLLOW UP APPOINTMENT WITH IN 7 DAYS AFTER DISCHARGE. PATIENT AGREED. SALESPERSON WIGS MADE A FOLLOW UP APPOINTMENT FOR PATIENT FOR Saturday07/08/2021 AT 10:00AM WITH MD. LUIS M ULRICH.SW WILL FOLLOW UP NEEDED.
[2021-06-01] MEDS ORDERED: FUROSEMIDE 40 MG TAB PO SCH (17:00)
== END 2021-06-01 15:00 | disposition home or self-care (01) | DRG 291 ==
LOC: MED 09:15 → MTU 12:26
PROVIDERS: ADMIT Family Medicine; ATTEND Family Medicine
DX: I13.0 Hypertensive heart and chronic kidney disease with heart failure and stage 1 through stage 4 chronic kidney disease, or unspecified chronic kidney disease (principal); I50.43 Acute on chronic combined systolic (congestive) and diastolic (congestive) heart failure; I24.8 Other forms of acute ischemic heart disease; E87.1 Hypo-osmolality and hyponatremia; I24.9 Acute ischemic heart disease, unspecified; I42.8 Other cardiomyopathies; N18.9 Chronic kidney disease, unspecified; R73.03 Prediabetes; Z20.822 Contact with and (suspected) exposure to COVID-19; E78.5 Hyperlipidemia, unspecified; F17.210 Nicotine dependence, cigarettes, uncomplicated; Z88.8 Allergy status to other drugs, medicaments and biological substances; Z79.899 Other long term (current) drug therapy; Z71.6 Tobacco abuse counseling; Z91.14 Patient's other noncompliance with medication regimen
CPT/HCPCS: 36415; 71045; 80048; 80053; 80305; 81003; 82150; 83036; 83690; 83735; 83880; 84100; 84436; 84439; 84443; 84479; 84484; 85025; 85610; 85730; 93005; 96374; 99285; J1940

== ENCOUNTER 2022-01-28 00:50 | Inpatient (IN) | payer OTHER, MEDICAID ==
--- NOTE | 2022-01-12 21:50 | NUR ---
NO COUGH HEARD, PT ABLE TO SLEEP.
[~2022-01-28] VITALS: Ht 175.3 cm; Wt 80.7 kg
[~2022-01-28 00:50] MED LIST changes: -CARV12.5 PO; +CARV3.122 PO; -IBUP-1842 PO; -PANT40EC PO; -POTA10TA70 PO; +SPIR25TA20 PO
[2022-01-28 00:51] VITALS: BP 142/98
--- NOTE | 2022-01-28 01:15 | NUR ---
PT TO BED #11
--- NOTE | 2022-01-28 01:20 | NUR ---
RECEIVED IN BED 11 WITH C/O CHEST PAIN, AND PAIN TO CHEST WITH INSPIRATION.
[2022-01-28] MEDS ORDERED: FUROSEMIDE 40 MG/4 ML VIAL IVP ONE (01:30)
--- NOTE | 2022-01-28 01:30 | NUR ---
SL ESTABLISHED, LABS DRAWN
--- NOTE | 2022-01-28 01:37 | NUR ---
XRAY AT BEDSIDE
[2022-01-28 01:46] LABS: BASOPHILS # (AUTO) 0.1 K/uL (0.00-0.22); EOSINOPHILS # (AUTO) 0.1 K/uL (0-0.4); EOSINOPHILS % (AUTO) 2.4 % (0.0-4.0); HEMATOCRIT 38.5 % (36-52); HEMOGLOBIN 12.3 g/dL (12.0-18.0); LYMPHOCYTES # (AUTO) 1.1 K/uL (2.0-11.5); LYMPHOCYTES % (AUTO) 22.2 % (20.5-51.1); MEAN CORPUSCULAR HEMOGLOBIN 25 pg (27-31); MEAN CORPUSCULAR HGB CONC 32 g/dL (33-37); MEAN CORPUSCULAR VOLUME 78.5 fL (80-94); MONOCYTES # (AUTO) 0.8 K/uL (0.8-1.0); MONOCYTES % (AUTO) 15.7 % (1.7-9.3); NEUTROPHILS % (AUTO) 58.7 % (42.2-75.2); PLATELET COUNT (AUTO) 228 K/uL (140-450); RED CELL DISTRIBUTION WIDTH 19.2 % (11.6-13.7); WHITE BLOOD COUNT (AUTO) 5.2 K/uL (4.8-10.8)
[2022-01-28 01:53] LABS: ANION GAP 13.5 (8-16); ASPARTATE AMINOTRANSFERASE 21 U/L (15-37); CARBON DIOXIDE 29.3 mmol/L (21-32); CHLORIDE 107 mmol/L (98-107); CREATININE 1.6 mg/dL (0.6-1.3); GFR ARICAN-AMERICAN 61 mL/min (>90); GLUCOSE 130 mg/dL (74-106); POTASSIUM 4.8 mmol/L (3.5-5.1); SODIUM SERUM 145 mmol/L (136-145); TOTAL BILIRUBIN 1.1 mg/dL (0.0-1.0); UREA NITROGEN, BLOOD 17 mg/dL (7-18)
[2022-01-28 02:33] LABS: BARBITURATE, URINE NEGATIVE ng/ml (NEG <=200); BENZODIAZEPINE, URINE NEGATIVE ng/mL (NEG <=200); CANNABINOID, URINE POSITIVE ng/mL (NEG <=50); COCAINE, URINE NEGATIVE ng/mL (NEG <=300); OPIATE, URINE NEGATIVE ng/mL (NEG <=2000); PHENCYCLIDINE SCREEN,URINE NEGATIVE ng/mL (NEG <=25)
--- NOTE | 2022-01-28 02:39 | NUR ---
SOGFIA SWAB OBTAINED AND SENT TO LAB
[2022-01-28] MEDS ORDERED: APIXABAN 2.5 MG TAB PO SCH (02:50)
[2022-01-28] MEDS ORDERED: NITROGLYCERIN 2% 1 GM PKT TP ONE (02:50)
[2022-01-28] MEDS ORDERED: NITROGLYCERIN 0.4 MG TAB SL ONE (02:50)
--- NOTE | 2022-01-28 06:10 | NUR ---
REPORT CALLED TO HILLARY AMEZCUA
--- NOTE | 2022-01-28 06:20 | NUR ---
TO 119B VIA GURNEY ATTACHED TO CM, ACCOMPANIED BY RN AND ERT
--- NOTE | 2022-01-28 06:32 | NUR ---
RECEIVED REPORT FROM ER NURSE FOR THE ADMISSION OF THE MORNING NURSE. PT IS ADMITTED TO [facility] DEPART FROM ER DEPARTMENT THRU [facility] WITH DIAGNOSIS OF CHF EXACERBATION. PT IS AOX4, AMBULATORY, ABLE TO VERBALIZE NEEDS AND ABLE TO FOLLOW COMMANDS. PT IS ON 2L NC AND ON CARDIAC DIET. PT HAS IV ON LEFT AC GAUGE 18, SALINE LOCK. PT SKIN IS INTACT. NO COMPLAIN OF PAIN AT THIS TIME. NO S/S OF RESPIRATORY DISTRESS NOTED. ALL SAFETY MEASURES IMPLEMENTED. BED IN LOW POSITION, BED WHEELS ON LOCK, AND CALL LIGHT WITHIN REACH.
--- NOTE | 2022-01-28 07:23 | NUR ---
PT IS STABLE. ENDORSED PT TO MORNING SHIFT NURSE FOR CONTINUITY OF CARE.
--- NOTE | 2022-01-28 07:41 | NUR ---
RECEIVED PT CARE AND REPORT FROM LANE THORNTON. PT IS NEW ADMISSION, MRSA DONE BY NOC SHIFT. PT IS RESTING IN BED SEMI FOWLERS, A&OX4, APPEARS CALM. COMPLAINS OF HEADACHE AND STATES, "I PROBABLY JUST NEED TO EAT." NO VISIBLE S/S OF DISTRESS OR DISCOMFORT. DENIES SOB. ORIENTED TO CALL LIGHT. CALL LIGHT IS WITHIN REACH, WILL COMPLETE ADMISSION SHORTLY.
[2022-01-28] MEDS ORDERED: FUROSEMIDE 20 MG/2 ML VIAL IVP SCH ×2 (09:00→21:00)
[2022-01-28] MEDS ORDERED: ENOXAPARIN 40 MG/0.4 ML SYR SUBQ SCH (09:00)
[2022-01-28 12:00] VITALS: BP 135/86
[2022-01-28 16:00] VITALS: BP 134/94
[2022-01-28] MEDS ORDERED: FUROSEMIDE 20 MG/2 ML VIAL IVP ONE (17:00)
--- NOTE | 2022-01-28 17:15 | NUR ---
PT REPORTS CHEST PAIN OF 6/10 WITH SOME MILD SOB. PATIENT IS SITTING AT BEDSIDE TO HELP ALLEVIATE HIS SYMPTOMS BUT STATES HE IS STILL IN PAIN. TEXTED DR. BRAN TO REPORT. DR ORDERED ONE TIME DOSE OF LASIX 20MG AT THIS TIME AND STAT EKG. WILL CONTINUE TO MONITOR.
--- NOTE | 2022-01-28 18:19 | NUR ---
ONE TIME LASIX 20MG ADMINISTERED AT 1730. PT REPORTS SOME RELIEF OF PAIN AT THIS TIME. SEMI FOWLERS IN BED, A&OX4. NO VISIBLE S/S OF DISTRESS OR DISCOMFORT. PAIN LEVEL 3/10 AT THIS TIME WITH NO SOB. WILL CONTINUE TO MONITOR. CALL LIGHT IS WITHIN REACH, ALL NEEDS MET AT THIS TIME. WILL ENDORSE TO NOC SHIFT.
--- NOTE | 2022-01-28 19:30 | NUR ---
RECEIVED REPORT FROM DAY SHIFT NURSE VICKY FOR CONTINUITY OF CARE. PATIENT IS A&O X4. PATIENT IS ON ROOM AIR, BREATHING IS NORMAL WITH SYMMETRICAL RISE AND FALL OF CHEST. IV IS AN 18G LAC, NO FLUIDS RUNNING AT THIS TIME (SALINE LOCKED). PATIENT IS SLEEPING, LYING IN SEMI-FOWLERS POSITION ON HIS LEFT SIDE. BED IS IN LOWEST POSITION, WHEELS LOCKED, CALL LIGHT IN PLACE. WILL CONTINUE TO OBSERVE PATIENT.
[2022-01-28 20:00] VITALS: BP 138/90
--- NOTE | 2022-01-28 20:20 | NUR ---
CRISTI FROM X-RAY CALLED ABOUT CT OF CHEST WITHOUT CONTRAST TO RULE OUT PE THAT WAS ORDERED BY DAY SHIFT NURSE. SHE STATED SHE ASKED DAY SHIFT NURSE TO QUESTION MD ON ORDER BECAUSE FOR A PE IT SHOULD BE A CT CHEST ANGIO. TOLD CRISTI I WOULD CHECK TO FIND OUT WHAT HAPPENED. CHECKED MD PHONE AND SAW COMMUNICATION BETWEEN DAY SHIFT NURSE AND DR. BRAN AT 1840. DAY SHIFT NURSE INFORMED DR BRAN THAT THE TEST SHOULD BE A CT CHEST ANGIO AND YINA SAID OKAY AND TO PLEASE CHANGE IT TO THAT TEST; BUT THEN DAY SHIFT NURSE MESSAGED YINA THAT DR. MACHADO SAID TO CANCEL THE CT SCAN. YINA SAID OKAY. INFORMED CRISTI FROM X-RAY THAT DAY SHIFT NURSE HAD MESSAGED DR. BRAN THAT DR. MACHADO HAD STATED TO CANCEL THE CT SCAN AND YINA SAID OKAY. CRISTI SAID THANKS AND ASKED IF I COULD CANCEL THE ORDER IN THE COMPUTER. I WENT INTO THE SYSTEM AND CANCELED THE ORDER FOR THE CT SCAN.
[2022-01-28] MEDS: carvediloL 6.25 MG TAB PO SCH (20:54)
[2022-01-28] MEDS: APIXABAN 2.5 MG TAB PO SCH (20:55)
[2022-01-28] MEDS ORDERED: carvediloL 3.125 MG TAB PO SCH (21:00)
--- NOTE | 2022-01-28 21:00 | NUR ---
OBTAINED PATIENT'S 2000 VITALS. VITALS WERE: BP 138/90, TEMP 95.6, HR 115, O2 96%, RR 18. ADMINISTERED 2100 MEDICATIONS TO PATIENT. PATIENT TOLERATED WELL, WITHOUT DIFFICULTY IN SWALLOWING. PATIENT'S BREATHING IS NORMAL WITH SYMMETRICAL RISE AND FALL OF CHEST. WILL CONTINUE TO OBSERVE PATIENT.
--- NOTE | 2022-01-28 23:00 | NUR ---
PATIENT WOKE UP AND REQUESTED A SANDWICH. REQUESTED MORE SANDWICHES FROM HOUS [facility] Addendum: 01/28/22 at 2323 by Mitchel Robert RN FROM [facility]. INFORMED PATIENT THAT MORE SANDWICHES WERE BEING BROUGHT UP TO THE UNIT. FRANCOIS BROUGHT MORE SANDWICHES AND I TOOK A SANDWICH INTO THE PATIENT'S ROOM, BUT PATIENT HAD FALLEN BACK ASLEEP. LEFT SANDWICH ON PATIENT'S TRAY TABLE. PATIENT'S BREATHING WAS NORMAL WITH SYMMETRICAL RISE AND FALL OF CHEST. WILL CONTINUE TO OBSERVE PATIENT.
[2022-01-29] VITALS: BP 128/84
--- NOTE | 2022-01-29 00:54 | NUR ---
OBTAINED PATIENT'S 0000 VITALS. VITALS WERE: BP 128/84, HR 100, O2 98, RR 18, TEMP 96.5. PATIENT WAS SLEEPING WHEN I ENTERED ROOM, BUT WAS EASILY AWAKENED. PATIENT'S BREATHING WAS NORMAL WITH SYMMETRICAL RISE AND FALL OF CHEST. BED WAS IN LOWEST POSITION, WITH WHEELS LOCKED, CALL LIGHT IN PLACE. WILL CONTINUE TO OBSERVE PATIENT.
--- NOTE | 2022-01-29 02:45 | NUR ---
LOOKED IN ON PATIENT. PATIENT WAS SLEEPING. BREATHING WAS NORMAL WITH SYMMETRICAL RISE AND FALL OF CHEST. WILL CONTINUE TO OBSERVE PATIENT.
--- NOTE | 2022-01-29 03:43 | NUR ---
COULD NOT FIND RESULTS OF STAT EKG THAT WAS PUT IN AT 1657. CALLED RT TO FOLLOW UP ON EKG. RT STATED THAT THEY'RE NOT AWARE IF EKG WAS DONE SINCE ORDER WAS PUT IN DURING DAY SHIFT. RT STATED THEY WOULD LOOK INTO IT AND GET BACK TO ME.
[2022-01-29 04:00] VITALS: BP 128/76
--- NOTE | 2022-01-29 05:30 | NUR ---
LOOKED IN ON PATIENT. PATIENT WAS AWAKE WATCHING TV. PATIENT ASKED FOR SOME HALIMA CRACKERS. GAVE PATIENT SOME HALIMA CRACKERS. PATIENT THANKED ME AND CONTINUED WATCHING TELEVISION. PATIENT WAS SITTING IN HIGH-FOWLERS POSITION. BREATHING WAS NORMAL WITH SYMMETRICAL RISE AND FALL OF CHEST. WILL CONTINUE TO OBSERVE PATIENT.
--- NOTE | 2022-01-29 07:19 | NUR ---
ENDORSED TO DAY SHIFT NURSE DONA FOR CONTINUITY OF CARE. PATIENT IS STABLE.
--- NOTE | 2022-01-29 07:19 | NUR ---
RECEIVED REPORT FROM NIGHTSHIFT NURSE NAPOLEON FOR CONTINUITY OF CARE. PT IN STABLE CONDITION AND CURRENTLY SLEEPING. PT IS A/OX4, AND BREATHING EVEN, REGULAR AND UNLABORED ON ROOM AIR. PT IS CONTINENT OF THE BOWELS AND BLADDER, AND ABLE TO AMBULATE INDEPENDENTLY. SKIN IS INTACT. NO SIGNS OF PAIN OR DISTRESS NOTED AT THIS TIME.
--- NOTE | 2022-01-29 07:40 | NUR ---
NOTIFIED DR. WELCH FOR NEW LAB ORDERS, NO UPDATED LABS SINCE 01/27/22. MD AWARE AND NEW ORDERS ENTERED.
[2022-01-29 08:00] VITALS: BP 118/84
[2022-01-29 08:39] LABS: BASOPHILS % (AUTO) 0.6 % (0.0-2.0); EOSINOPHILS # (AUTO) 0.2 K/uL (0-0.4); EOSINOPHILS % (AUTO) 3.4 % (0.0-4.0); HEMATOCRIT 41.8 % (36-52); HEMOGLOBIN 13.7 g/dL (12.0-18.0); LYMPHOCYTES # (AUTO) 1.3 K/uL (2.0-11.5); LYMPHOCYTES % (AUTO) 24.3 % (20.5-51.1); MEAN CORPUSCULAR HEMOGLOBIN 26 pg (27-31); MEAN CORPUSCULAR HGB CONC 33 g/dL (33-37); MONOCYTES % (AUTO) 18.1 % (1.7-9.3); NEUTROPHILS # (AUTO) 2.9 K/uL (1.8-7.7); NEUTROPHILS % (AUTO) 53.6 % (42.2-75.2); PLATELET COUNT (AUTO) 286 K/uL (140-450); RED BLOOD CELL COUNT(AUTO) 5.36 MIL/uL (4.20-6.10); RED CELL DISTRIBUTION WIDTH 19.3 % (11.6-13.7); WHITE BLOOD COUNT (AUTO) 5.5 K/uL (4.8-10.8)
[2022-01-29] MEDS ORDERED: ASPIRIN 81 MG TAB.CHEW PO SCH (09:00)
[2022-01-29 09:03] LABS: ALBUMIN 2.8 g/dL (3.4-5.0); ANION GAP 7.2 (8-16); CREATININE 1.5 mg/dL (0.6-1.3); POTASSIUM 4.2 mmol/L (3.5-5.1)
[2022-01-29] MEDS: SPIRONOLACTONE 25 MG TAB PO SCH (09:37)
[2022-01-29] MEDS: ATORVASTATIN 20 MG TAB PO SCH (09:38)
[2022-01-29] MEDS: LOSARTAN 25 MG TAB PO SCH (09:38)
[2022-01-29] MEDS: carvediloL 6.25 MG TAB PO SCH ×2 (09:38→20:34)
[2022-01-29] MEDS: APIXABAN 2.5 MG TAB PO SCH ×2 (09:41→20:39)
[2022-01-29 12:00] VITALS: BP 122/81
[2022-01-29 16:00] VITALS: BP 129/97
--- NOTE | 2022-01-29 17:32 | NUR ---
PATIENT HAS BEEN SCREENED AND CATEGORIZED MODERATE NUTRITION RISK. PATIENT WILL BE SEEN WITHIN 3-5 DAYS OF ADMISSION. 02/01/2212/23/[address] REVIEWED BY [address]W SALDANA RD
--- NOTE | 2022-01-29 19:28 | NUR ---
GET THE REPORT FROM MORNING NURSE DONA, PATIENT IS LYING ON BED, PATIENT IS ALERT ORIENTED X4, ALL FALL PRECAUTION MEASURE ARE IN PLACE, CALL LIGHT IS WITHIN THE REACH, WILL CONTINUE TO MONITOR PATIENT.
--- NOTE | 2022-01-29 19:28 | NUR ---
ENDORSED PT TO NIGHTSHIFT NURSE NOÉ FOR CONTINUITY OF CARE. PT IN STABLE CONDITION.
[2022-01-29 20:00] VITALS: BP 133/85
--- NOTE | 2022-01-29 20:39 | NUR ---
PATIENT IS LYING ON BED, NO ANY COMPLAIN OF PAIN OR SHORTNESS OF BREATH AT THIS TIME, VITAL SIGN IS WITHIN THE NORMAL RANGE, ALL SCHEDULE MEDICATION IS GIVEN PER DOCTOR ORDER, CALL LIGHT IS WITHIN THE REACH, WILL CONTINUE TO MONITOR PATIENT.
--- NOTE | 2022-01-29 23:01 | NUR ---
PATIENT IS COMPLAINING OF CONSTANT COUGH, CALL SUBCONTRACT MANAGER DR CARRILLO AND REQUEST MEDICATION, DR GIVE AN ORDER FOR ROBITUSSIN 5ML Q4 FOR COUGH NEEDED , ORDER PLACED AND CARRIED OUT, CALL LIGHT IS WITHIN THE REACH, WILL CONTINUE TO MONITOR PATIENT.
[2022-01-29] MEDS: guaiFENesin DM 200/20 MG-10 ML 10 ML UDC PO PRN (23:04)
[2022-01-30] VITALS: BP 100/64
--- NOTE | 2022-01-30 00:19 | NUR ---
PATIENT IS LYING ON BED, NO ANY COMPLAIN OF PAIN OR SHORTNESS OF BREATH AT THIS TIME, VITAL SIGN IS WITHIN THE NORMAL RANGE, CALL LIGHT IS WITHIN THE REACH, WILL CONTINUE TO MONITOR PATIENT.
[2022-01-30 04:00] VITALS: BP 120/86
--- NOTE | 2022-01-30 04:19 | NUR ---
vital sign is within the normal range, no any complain of pain or shortness of breath at this time,patient is lying on bed, call light is within the reach, will continue to monitor patient.
--- NOTE | 2022-01-30 07:18 | NUR ---
gave the report to the morning nurse chris for continuos of care,patient is stable, signing off.
[2022-01-30 08:00] VITALS: BP 125/89
[2022-01-30] MEDS ORDERED: HYDROcodone/APAP 5/325 MG 1 TAB TAB PO PRN (08:35)
[2022-01-30] MEDS: SPIRONOLACTONE 25 MG TAB PO SCH (09:11)
[2022-01-30] MEDS: LOSARTAN 25 MG TAB PO SCH (09:12)
[2022-01-30] MEDS: carvediloL 6.25 MG TAB PO SCH ×2 (09:12→20:47)
[2022-01-30] MEDS: ATORVASTATIN 20 MG TAB PO SCH (09:13)
[2022-01-30] MEDS: APIXABAN 2.5 MG TAB PO SCH ×2 (09:15→20:49)
--- NOTE | 2022-01-30 09:20 | NUR ---
ALL DUE MEDICATION GIVEN. PT TOLERATING WELL.
[2022-01-30] MEDS: guaiFENesin DM 200/20 MG-10 ML 10 ML UDC PO PRN ×3 (10:09→20:50)
--- NOTE | 2022-01-30 10:09 | NUR ---
PT C/O COUGH, REQUESTING COUGH MEDICATION. MED GIVEN. PT TOLERATING WELL.
[2022-01-30 12:00] VITALS: BP 109/69
--- NOTE | 2022-01-30 12:00 | NUR ---
PT IN BED SLEEPING. EVEN CHEST RISE AND FALL. RESPIRATIONS EVEN AND UNLABORED. ALL SAFETY MEASURES IN PLACE.
--- NOTE | 2022-01-30 14:10 | NUR ---
NURSE MAKING ROUNDS. PT REQUESTS SANDWICH STATES HES HUNGRY. NURSE PROVIDED PT WITH SANDWICH.
[2022-01-30] MEDS: FUROSEMIDE 40 MG/4 ML VIAL IVP SCH (14:44)
--- NOTE | 2022-01-30 15:00 | NUR ---
DISCHARGE PLANNING PATIENT IS A 41 YEAR OLD MALE ADMITTED IN THE [facility]/ED ON 01/28/2022 DUE TO CHF EXACERBATION. SW MEET WITH PATIENT AT BEDSIDE TO DISCUSS AND GATHER HIS COLLATERAL INFORMATION. PATIENT WAS AWAKE AND ALERT ABLE TO PROVIDE HIS INFORMATION. PER PATIENT HE IS NOW GOING TO BE STAYING AT HIS MOTHER [place] HOME FOR THE HOLIDAYS TO BE WITH HIS KIDS. PATIENT REPORTED THAT HE IS TRYING TO FIND A STABLE PLACE TO STAY AND WILL CONTINUE WITH HOUSING SEARCH. PATIENT STATED THAT HE HAS NO ADVANCE DIRECTIVES AND DECLINED INF FORMS PROVIDED BY SW. INSTEAD SW PROVIDED PATIENT WITH RESOURCES FOR TRANSITIONAL HOUSING AND LOW COST CLINICS INFORMATION. PER PATIENT HE HAS GOOD FAMILY SUPPORT AT THE MOMENT. PATIENT REPORTED NOT FOLLOWING WITH HIS PCP APPOINTMENT MADE LAST TIME HE WAS HOSPITALIZED AND DECLINED FOR SW TO MAKE A FOLLOW UP APPOINTMENT. SW DISCUSSED WITH PATIENT ABOUT THE IMPORTANCE OF MAKING HIS FOLLOW UP APPOINTMENT WITH PCP WITH IN 5-7 DAYS AFTER HIS DISCHARGE. PATIENT AGREED HOWEVER; DECLINED FOR SW TO MAKE THE APPOINTMENT ANYWAY AND STATED THAT HE WILL MAKE IT HIM SELF WITH ONE OF THE CLINICS OR THE RESOURCES PROVIDED BY SW TO LOW COST CLINICS WHEN HE IS DISCHARGED. PATIENT STATED THAT HE HAS NO ISSUES GETTING OR TAKING HIS MEDICATIONS AND REPORTED THAT HE WILL GET THEM FROM THE [facility] IN [place] IN [place] AND [facility]. PER PATIENT HE HAS NO DME AND HE WANTS TO GO HOME WITH HIS FAMILY AFTER HE IS DISCHARGE FROM [facility]. SW/BORIS WILL FOLLOW UP NEEDED.
[2022-01-30 16:00] VITALS: BP 121/83
--- NOTE | 2022-01-30 16:24 | NUR ---
PT IN BED WITH EYES CLOSED. RESPIRATIONS EVEN AND UNLABORED. ALL SAFETY PRECAUTIONS IN PLACE. CALL LIGHT WITHIN REACH.
--- NOTE | 2022-01-30 16:47 | NUR ---
PT C/O COUGH. REQUESTS COUGH MEDICATION. MEDICATION ADMINISTERED. PT TOLERATES WELL.
--- NOTE | 2022-01-30 19:10 | NUR ---
RECEIVED ENDORSEMENT FROM DAY SHIFT NURSE FOR CONTINUITY OF CARE. PT IS AWAKE, ALERT AND ORIENTED X 4. PT IS ABLE TO RESPONSE VERBALLY AND VERBALIZED NEEDS. PT IS WITH UNPRODUCTIVE COUGH. DENIES OF CHEST PAIN OR ANY OTHER PAIN. IV SALINE LOCK INTACT AND PATENT, IV SITE IS ON LEFT AC 18G. PT IS ON STANDARD ISOLATION.
--- NOTE | 2022-01-30 19:10 | NUR ---
ENDORSED PT TO PRODUCT MARKETING EXECUTIVE NURSE FOR CONTINUITY OF CARE. PT IN STABLE CONDITION.
--- NOTE | 2022-01-30 19:11 | NUR ---
PT IS AMBULATORY AND USING RESTROOM INDEPENDENTLY.
[2022-01-30 20:00] VITALS: BP 108/72
--- NOTE | 2022-01-30 20:50 | NUR ---
PT COMPLAINTS OF COUGH, NOTED PT WITH UNPRODUCTIVE COUGH. COUGH SYRUP ADMINISTERED ORDER.
--- NOTE | 2022-01-30 21:30 | NUR ---
PT DENIES OF PAIN OR DISCOMFORT. NO HEADACHE OR DIZZINESS. NO SOB OR DISTRESS. PT IS STABLE.
--- NOTE | 2022-01-30 23:00 | NUR ---
PT WOKE UP AND VERBALIZED OF HUNGRY. PT REQUESTED TO HAVE A SANDWICH. PT DENIES OF PAIN OR DISCOMFORT.
[2022-01-31] VITALS: BP 103/70
--- NOTE | 2022-01-31 02:00 | NUR ---
PT IS ASLEEP, NO SOB OR DISTRESS. NO FACIAL GRIMACING. SKIN INTACT.
[2022-01-31 04:00] VITALS: BP 128/74
--- NOTE | 2022-01-31 05:00 | NUR ---
PT SLEEP WELL, NO SOB OR DISTRESS. NO COUGH HEARD.
--- NOTE | 2022-01-31 07:10 | NUR ---
RECEIVED REPORT FROM BAND TEACHER NURSE FOR CONTINUITY OF PT CARE. PT IN BED ASLEEP. EVEN CHEST RISE AND FALL. RESPIRATIONS EVEN AND UNLABORED. NO DISTRESS NOTED. CALL LIGHT WITHIN REACH. ALL SAFETY PRECAUTIONS IN PLACE.
[2022-01-31 08:00] VITALS: BP 128/87
[2022-01-31] MEDS: SPIRONOLACTONE 25 MG TAB PO SCH (09:10)
[2022-01-31] MEDS: carvediloL 6.25 MG TAB PO SCH (09:10)
[2022-01-31] MEDS: LOSARTAN 25 MG TAB PO SCH (09:10)
[2022-01-31] MEDS: ATORVASTATIN 20 MG TAB PO SCH (09:11)
[2022-01-31] MEDS: APIXABAN 2.5 MG TAB PO SCH (09:12)
--- NOTE | 2022-01-31 09:16 | NUR ---
DR CARRILLO AT BEDSIDE
[2022-01-31] MEDS: FUROSEMIDE 40 MG/4 ML VIAL IVP SCH (09:45)
[2022-01-31 11:18] VITALS: BP 128/87
--- NOTE | 2022-01-31 14:40 | NUR ---
PT IV AND NAME BAND REMOVED. D/C PACKET DISCUSSED. PT REQUEST UBER. NURSE PROVIDED PT WITH MEAL TO GO AND SNACKS. PT WALKED TO FRONT OF ER. UBER PICKED UP PT. PT IN STABLE CONDITION. GRISEL.
== END 2022-01-31 14:30 | disposition home or self-care (01) | DRG 291 ==
LOC: MED 00:50 → MTU 03:15
PROVIDERS: ADMIT Family Medicine; ATTEND Family Medicine
DX: I11.0 Hypertensive heart disease with heart failure (principal); I50.23 Acute on chronic systolic (congestive) heart failure; E44.0 Moderate protein-calorie malnutrition; N17.9 Acute kidney failure, unspecified; I42.8 Other cardiomyopathies; R94.31 Abnormal electrocardiogram [ECG] [EKG]; Z20.822 Contact with and (suspected) exposure to COVID-19; J45.909 Unspecified asthma, uncomplicated; F15.10 Other stimulant abuse, uncomplicated; E78.5 Hyperlipidemia, unspecified; F17.200 Nicotine dependence, unspecified, uncomplicated; Z86.711 Personal history of pulmonary embolism; Z88.8 Allergy status to other drugs, medicaments and biological substances; Z88.1 Allergy status to other antibiotic agents; Z91.14 Patient's other noncompliance with medication regimen; Z68.26 Body mass index [BMI] 26.0-26.9, adult
CPT/HCPCS: 36415; 71045; 80053; 80305; 83880; 84484; 85025; 85379; 87081; 96374; 99285; J1650; J1940

== ENCOUNTER 2022-04-04 12:37 | Inpatient (IN) | payer MEDICAID, OTHER ==
[~2022-04-04] VITALS: Ht 175.3 cm; Wt 81.2 kg
[2022-04-04 13:02] VITALS: BP 158/93
[2022-04-04 14:09] LABS: BASOPHILS # (AUTO) 0.1 K/uL (0.00-0.22); BASOPHILS % (AUTO) 1.4 % (0.0-2.0); EOSINOPHILS # (AUTO) 0.1 K/uL (0-0.4); HEMATOCRIT 36.4 % (36-52); HEMOGLOBIN 11.6 g/dL (12.0-18.0); LYMPHOCYTES # (AUTO) 1.5 K/uL (2.0-11.5); LYMPHOCYTES % (AUTO) 21.3 % (20.5-51.1); MEAN CORPUSCULAR HEMOGLOBIN 25 pg (27-31); MEAN CORPUSCULAR HGB CONC 32 g/dL (33-37); MEAN CORPUSCULAR VOLUME 77.4 fL (80-94); MONOCYTES # (AUTO) 1.2 K/uL (0.8-1.0); MONOCYTES % (AUTO) 17.7 % (1.7-9.3); NEUTROPHILS # (AUTO) 3.9 K/uL (1.8-7.7); NEUTROPHILS % (AUTO) 57.6 % (42.2-75.2); PLATELET COUNT (AUTO) 401 K/uL (140-450); RED CELL DISTRIBUTION WIDTH 23.2 % (11.6-13.7); WHITE BLOOD COUNT (AUTO) 6.8 K/uL (4.8-10.8)
[2022-04-04 14:29] LABS: ALBUMIN 3.6 g/dL (3.4-5.0); ANION GAP 12.4 (8-16); CARBON DIOXIDE 27.3 mmol/L (21-32); CREATININE 1.8 mg/dL (0.6-1.3); POTASSIUM 4.7 mmol/L (3.5-5.1); TOTAL BILIRUBIN 1.1 mg/dL (0.0-1.0)
[2022-04-04] MEDS ORDERED: FUROSEMIDE 40 MG/4 ML VIAL IVP ONE (16:15)
[2022-04-04] MEDS ORDERED: HYDROcodone/APAP 5/325 MG 1 TAB TAB PO PRN (19:30)
[2022-04-04] MEDS ORDERED: POTASSIUM CHLORIDE 10 MEQ TABER PO PRN (19:30)
[2022-04-04] MEDS ORDERED: ONDANSETRON 4 MG/2 ML VIAL IVP PRN (19:30)
--- NOTE | 2022-04-04 19:30 | NUR ---
41yo M to be admitted of CHF exacerbation. Awake alert and oriented x 4. Denies chest pain. No shortness of breath now. Pulse 104. VS otherwise stable. No distress. Waiting on bed assignment
[2022-04-04] MEDS: FUROSEMIDE 40 MG/4 ML VIAL IVP SCH (21:47)
[2022-04-04] MEDS: ACETAMINOPHEN 325 MG TAB PO PRN (22:19)
--- NOTE | 2022-04-04 22:19 | NUR ---
Complaining of 5/10 headache. Tylenol 650mg PO given
--- NOTE | 2022-04-04 22:24 | NUR ---
Dariusz toney in ED - 04/04/22 at 2224 by [id number] Complaining of 5/10 pain. Tylenol 650mg PO given
--- NOTE | 2022-04-05 00:10 | NUR ---
Awake and alert. Complaining of being hungry. [place] provided
[2022-04-05] MEDS: MORPHINE SULFATE 4 MG/ML SYR IVP PRN ×2 (04:00→20:43)
--- NOTE | 2022-04-05 04:05 | NUR ---
Complaining of 8/10 midsternal chest pain. Morphine 4mg IV given
[2022-04-05 05:42] LABS: BASOPHILS # (AUTO) 0.1 K/uL (0.00-0.22); BASOPHILS % (AUTO) 1.1 % (0.0-2.0); EOSINOPHILS # (AUTO) 0.3 K/uL (0-0.4); EOSINOPHILS % (AUTO) 3.7 % (0.0-4.0); HEMOGLOBIN 11.5 g/dL (12.0-18.0); LYMPHOCYTES # (AUTO) 1.4 K/uL (2.0-11.5); LYMPHOCYTES % (AUTO) 19.4 % (20.5-51.1); MEAN CORPUSCULAR HEMOGLOBIN 25 pg (27-31); MEAN CORPUSCULAR HGB CONC 32 g/dL (33-37); MEAN CORPUSCULAR VOLUME 76.9 fL (80-94); MONOCYTES % (AUTO) 14.5 % (1.7-9.3); NEUTROPHILS # (AUTO) 4.3 K/uL (1.8-7.7); NEUTROPHILS % (AUTO) 61.3 % (42.2-75.2); PLATELET COUNT (AUTO) 399 K/uL (140-450); RED BLOOD CELL COUNT(AUTO) 4.68 MIL/uL (4.20-6.10)
[2022-04-05 06:15] LABS: ANION GAP 10.8 (8-16); CREATININE 1.7 mg/dL (0.6-1.3); POTASSIUM 3.8 mmol/L (3.5-5.1)
--- NOTE | 2022-04-05 06:20 | NUR ---
Sleeping at this time. VS stable. No distress. Waiting on tele bed assignment.
--- NOTE | 2022-04-05 08:20 | NUR ---
DISPO AND MEDICAL DECISION MAKING, INPATIENT ADMISSION FOR FURTHER MANAGEMENT. PATIENT CARE REPORT ENDORSED TO AMRIT, CONTINUITY OF CARE ENDORSED.
--- NOTE | 2022-04-05 09:03 | NUR ---
PATIENT HAS BEEN SCREENED AND CATEGORIZED MODERATE NUTRITION RISK. PATIENT WILL BE SEEN WITHIN 3-5 DAYS OF ADMISSION. / REVIEWED BY MATTHEW SALDANA RD
[2022-04-05] MEDS: FUROSEMIDE 40 MG/4 ML VIAL IVP SCH ×2 (11:22→20:40)
[2022-04-05] MEDS: ACETAMINOPHEN 325 MG TAB PO PRN (11:22)
--- NOTE | 2022-04-05 11:30 | NUR ---
admitted the patient from emergency room from rn Frederick in rm 121A aox4 admitting diagnosis shortness of breath .room air . ambulatory .
[2022-04-05 12:00] VITALS: BP 132/85
--- NOTE | 2022-04-05 18:19 | NUR ---
will endorse to innovation analyst rn for continuity of care
[2022-04-05 20:00] VITALS: BP 127/92
[2022-04-05] MEDS: carvediloL 6.25 MG TAB PO SCH (20:40)
[2022-04-06] VITALS: BP 125/82
[2022-04-06 04:00] VITALS: BP 125/90
[2022-04-06 05:39] LABS: BASOPHILS # (AUTO) 0.1 K/uL (0.00-0.22); BASOPHILS % (AUTO) 1.2 % (0.0-2.0); EOSINOPHILS # (AUTO) 0.3 K/uL (0-0.4); EOSINOPHILS % (AUTO) 5.7 % (0.0-4.0); HEMATOCRIT 40.7 % (36-52); LYMPHOCYTES # (AUTO) 1.4 K/uL (2.0-11.5); LYMPHOCYTES % (AUTO) 24.4 % (20.5-51.1); MEAN CORPUSCULAR HEMOGLOBIN 25 pg (27-31); MEAN CORPUSCULAR HGB CONC 32 g/dL (33-37); MEAN CORPUSCULAR VOLUME 77.6 fL (80-94); MONOCYTES # (AUTO) 0.8 K/uL (0.8-1.0); MONOCYTES % (AUTO) 13.2 % (1.7-9.3); NEUTROPHILS # (AUTO) 3.2 K/uL (1.8-7.7); NEUTROPHILS % (AUTO) 55.5 % (42.2-75.2); PLATELET COUNT (AUTO) 419 K/uL (140-450); RED BLOOD CELL COUNT(AUTO) 5.24 MIL/uL (4.20-6.10); RED CELL DISTRIBUTION WIDTH 23.9 % (11.6-13.7); WHITE BLOOD COUNT (AUTO) 5.8 K/uL (4.8-10.8)
[2022-04-06 06:14] LABS: ANION GAP 9.3 (8-16); CARBON DIOXIDE 32.8 mmol/L (21-32); CREATININE 1.7 mg/dL (0.6-1.3); POTASSIUM 4.1 mmol/L (3.5-5.1)
[2022-04-06] MEDS: MORPHINE SULFATE 4 MG/ML SYR IVP PRN (06:59)
--- NOTE | 2022-04-06 07:05 | NUR ---
RECEIVED REPORT FROM NIGHTSHIFT NURSE CHRISTIANO FOR CONTINUITY OF CARE. PT IN STABLE CONDITION.
[2022-04-06 08:00] VITALS: BP 123/79
[2022-04-06] MEDS: carvediloL 6.25 MG TAB PO SCH (09:00)
[2022-04-06] MEDS: FUROSEMIDE 40 MG/4 ML VIAL IVP SCH (09:00)
[2022-04-06] MEDS ORDERED: LOSARTAN 25 MG TAB PO SCH (09:00)
[2022-04-06] MEDS ORDERED: SPIRONOLACTONE 25 MG TAB PO SCH (09:00)
[2022-04-06] MEDS ORDERED: APIXABAN 2.5 MG TAB PO SCH (09:00)
[2022-04-06] MEDS ORDERED: ATORVASTATIN 20 MG TAB PO SCH (09:00)
[2022-04-06 12:00] VITALS: BP 124/89
[2022-04-06] MEDS ORDERED: FURO40TA9 PO (13:20)
[2022-04-06] MEDS ORDERED: ATOR40TA PO (13:20)
[2022-04-06] MEDS ORDERED: PANT40EC56 PO (13:20)
[2022-04-06] MEDS ORDERED: SPIR25TA20 PO (13:20)
[2022-04-06] MEDS ORDERED: LOSA25TA1 PO (13:20)
[2022-04-06] MEDS ORDERED: CARV3.122 PO (13:20)
[2022-04-06] MEDS ORDERED: ASPI-1856 PO (13:20)
[2022-04-06 13:28] VITALS: BP 124/89
--- NOTE | 2022-04-06 13:30 | NUR ---
REVIEWED AND DISCUSSED PT DISCHARGE PAPERWORK. PT VERBALIZED UNDERSTANDING AND SIGNED ALL DOCUMENTS. PT'S FAMILY AT THE BEDSIDE AND WILL ASSIST PT HOME. IV REMOVED AND DRESSED.
--- NOTE | 2022-04-06 13:45 | NUR ---
PT TRANSPORTED TO FRONT LOBBY VIA WHEELCHAIR BY STUDENT NURSE.
--- NOTE | 2022-04-11 12:16 | NUR ---
GRISEL BRYANT: CALLED [facility] AT [facility] TO SCHEDUALE APPOINTMENT. SPOKE WITH JALEN THAT WAS ABLE TO GIVE ME A OVER THE PHONE APT FOR 04/19/2022 AROUND [id number]. PT WILL RECEIVE A CALL FROM A UNK OR PRIVATE NUMBER. TO CONFIRMS APPT THE WILL RECEIVE ANOTHER CALL FROM THE DOCTOR.
== END 2022-04-06 13:45 | disposition home or self-care (01) | DRG 194 ==
LOC: MED 12:37 → MTU 19:28
PROVIDERS: ADMIT Student in an Organized Health Care Education/Training Program; ATTEND Student in an Organized Health Care Education/Training Program
DX: I11.0 Hypertensive heart disease with heart failure (principal); N17.9 Acute kidney failure, unspecified; R65.10 Systemic inflammatory response syndrome (SIRS) of non-infectious origin without acute organ dysfunction; E83.51 Hypocalcemia; I42.8 Other cardiomyopathies; E87.1 Hypo-osmolality and hyponatremia; E78.5 Hyperlipidemia, unspecified; F15.10 Other stimulant abuse, uncomplicated; J45.909 Unspecified asthma, uncomplicated; I50.23 Acute on chronic systolic (congestive) heart failure; Z20.822 Contact with and (suspected) exposure to COVID-19; Z88.8 Allergy status to other drugs, medicaments and biological substances; Z79.899 Other long term (current) drug therapy; Z79.82 Long term (current) use of aspirin; Z79.1 Long term (current) use of non-steroidal anti-inflammatories (NSAID); Z91.14 Patient's other noncompliance with medication regimen; Z71.51 Drug abuse counseling and surveillance of drug abuser
CPT/HCPCS: 36415; 71045; 80048; 80053; 83880; 84484; 85025; 87081; 93005; 96374; 96375; 99285; J1644; J1940; J2270

== ENCOUNTER 2022-05-09 19:25 | Inpatient (IN) | payer OTHER ==
[~2022-05-09] VITALS: Ht 175.3 cm; Wt 72.6 kg
[2022-05-09 19:30] VITALS: BP 146/87
--- NOTE | 2022-05-09 19:33 | NUR ---
TO LOBBY A/W BED AMBULATORY
[2022-05-09 20:32] LABS: BASOPHILS # (AUTO) 0.1 K/uL (0.00-0.22); BASOPHILS % (AUTO) 1.6 % (0.0-2.0); EOSINOPHILS % (AUTO) 0.8 % (0.0-4.0); HEMATOCRIT 40.8 % (36-52); HEMOGLOBIN 13.2 g/dL (12.0-18.0); LYMPHOCYTES # (AUTO) 0.9 K/uL (2.0-11.5); LYMPHOCYTES % (AUTO) 22.4 % (20.5-51.1); MEAN CORPUSCULAR HEMOGLOBIN 25 pg (27-31); MEAN CORPUSCULAR HGB CONC 32 g/dL (33-37); MEAN CORPUSCULAR VOLUME 76.9 fL (80-94); MONOCYTES # (AUTO) 0.9 K/uL (0.8-1.0); MONOCYTES % (AUTO) 20.9 % (1.7-9.3); NEUTROPHILS # (AUTO) 2.2 K/uL (1.8-7.7); NEUTROPHILS % (AUTO) 54.3 % (42.2-75.2); PLATELET COUNT (AUTO) 181 K/uL (140-450); RED CELL DISTRIBUTION WIDTH 21.3 % (11.6-13.7); WHITE BLOOD COUNT (AUTO) 4.1 K/uL (4.8-10.8)
[2022-05-09 20:48] LABS: ALBUMIN 3.2 g/dL (3.4-5.0); ANION GAP 8.7 (8-16); CARBON DIOXIDE 30.7 mmol/L (21-32); CREATININE 1.7 mg/dL (0.6-1.3); POTASSIUM 4.4 mmol/L (3.5-5.1)
[2022-05-09 20:57] LABS: LIPASE 192 U/L (73-393)
[2022-05-09] MEDS ORDERED: FUROSEMIDE 40 MG/4 ML VIAL IVP ONE (21:10)
--- NOTE | 2022-05-09 21:12 | NUR ---
PT TO BED 3 AMBULATORY
--- NOTE | 2022-05-09 21:30 | NUR ---
RECEIVED IN BED 3 WITH C/O SOB X 2 DAYS. "I HAVE CHF" PTS RESPIRATIONS ARE SLIGHTLY LABORED. ATTACHED TO MANAGER EDUCATION = ST
[2022-05-09] MEDS ORDERED: ACETAMINOPHEN EXTRA STRENGTH 500 MG TAB PO ONE (22:40)
[2022-05-09] MEDS ORDERED: MAGNESIUM OXIDE 400 MG TAB PO PRN (22:55)
[2022-05-09] MEDS ORDERED: MORPHINE SULFATE 4 MG/ML SYR IVP PRN (22:55)
[2022-05-09] MEDS ORDERED: POTASSIUM CHLORIDE 10 MEQ TABER PO PRN (22:55)
[2022-05-09] MEDS ORDERED: ACETAMINOPHEN 325 MG TAB PO PRN (22:55)
[2022-05-09] MEDS ORDERED: ONDANSETRON 4 MG/2 ML VIAL IVP PRN (22:55)
[2022-05-09] MEDS ORDERED: HYDROcodone/APAP 5/325 MG 1 TAB TAB PO PRN (22:55)
--- NOTE | 2022-05-10 | NUR ---
GERTRUDE SWAB OBTAINED AND SENT TO LAB
--- NOTE | 2022-05-10 01:25 | NUR ---
REPORT CALLED TO HILLARY STEEL.
--- NOTE | 2022-05-10 01:52 | NUR ---
TRANSFERED T0 119 A VIA GURNEY ATTACHED TO , ACCOMPANIED BY RN AND FOAM CUTTING SUPERVISOR
--- NOTE | 2022-05-10 01:55 | NUR ---
PT WAS ADMITTED TO THE MEDICAL CENTER FROM ER [facility]RU [facility] WITH DIAGNOSIS OF CHF EXACERBATION AND HYPOXIC RESPIRATORY FAILURE. PT IS AOX4, AMBULATORY, ABLE TO VERBALIZE NEEDS AND ABLE TO FOLLOW COMMANDS. PT HAS IV ON LEFT AC GAUGE 20, SALINE LOC. PT IS ON 2L NC AND ON CARDIAC DIET. PT SKIN IS INTACT. PT DENIES PAIN AT THIS TIME. NO S/S OF RESPIRATORY DISTRESS NOTED. ALL SAFETY MEASURES IMPLEMENTED. BED IN LOW POSITION, BED WHEELS ON LOCK. CALL LIGHT WITHIN REACH.
--- NOTE | 2022-05-10 03:00 | NUR ---
PT WAS GIVEN SANDWICH , PUDDING AND JUICE. NO COMPLAIN OF PAIN. NO S/S OF RESPIRATORY DISTRESS NOTED.
[2022-05-10 04:00] VITALS: BP 131/82
--- NOTE | 2022-05-10 05:00 | NUR ---
PT IS ON SLEEP. CHEST RISE AND FALL SYMMETRICALLY NOTED. RESPIRATION IS EVEN AND UNLABORED. ALL SAFETY MEASURES IMPLEMENTED. BED IN LOW POSITION, BED WHEELS ON LOCK, CALL LIGHT WITHIN REACH AND BED ALARM ON.
[2022-05-10 06:52] LABS: BASOPHILS % (AUTO) 0.2 % (0.0-2.0); EOSINOPHILS # (AUTO) 0.1 K/uL (0-0.4); EOSINOPHILS % (AUTO) 2.2 % (0.0-4.0); HEMATOCRIT 41.3 % (36-52); HEMOGLOBIN 13.2 g/dL (12.0-18.0); LYMPHOCYTES % (AUTO) 27.2 % (20.5-51.1); MEAN CORPUSCULAR HEMOGLOBIN 25 pg (27-31); MEAN CORPUSCULAR HGB CONC 32 g/dL (33-37); MEAN CORPUSCULAR VOLUME 77.4 fL (80-94); MONOCYTES # (AUTO) 1.1 K/uL (0.8-1.0); MONOCYTES % (AUTO) 29.7 % (1.7-9.3); NEUTROPHILS # (AUTO) 1.5 K/uL (1.8-7.7); NEUTROPHILS % (AUTO) 40.7 % (42.2-75.2); PLATELET COUNT (AUTO) 161 K/uL (140-450); RED BLOOD CELL COUNT(AUTO) 5.33 MIL/uL (4.20-6.10); RED CELL DISTRIBUTION WIDTH 21.8 % (11.6-13.7); WHITE BLOOD COUNT (AUTO) 3.6 K/uL (4.8-10.8)
[2022-05-10 06:55] LABS: ANION GAP 8.3 (8-16); CARBON DIOXIDE 33.5 mmol/L (21-32); CREATININE 1.7 mg/dL (0.6-1.3); POTASSIUM 3.8 mmol/L (3.5-5.1)
--- NOTE | 2022-05-10 07:16 | NUR ---
PT IS STABLE. ENDORSED PT TO MORNING SHIFT NURSE FOR CONTINUITY OF CARE.
--- NOTE | 2022-05-10 07:36 | NUR ---
got report from the night nurse, pt sleeping, no sob.[email or web address]
[2022-05-10 08:00] VITALS: BP 125/97
[2022-05-10] MEDS: ECOTRIN 81 MG TABEC PO SCH (08:32)
[2022-05-10] MEDS: FUROSEMIDE 40 MG/4 ML VIAL IVP SCH ×3 (08:32→16:33)
[2022-05-10] MEDS: PANTOPRAZOLE 40 MG TABEC PO SCH (08:33)
[2022-05-10] MEDS: APIXABAN 2.5 MG TAB PO SCH ×2 (08:33→20:48)
[2022-05-10] MEDS: carvediloL 3.125 MG TAB PO SCH ×2 (08:33→20:48)
[2022-05-10] MEDS: DOCUSATE SODIUM 100 MG GELCAP PO SCH (08:35)
--- NOTE | 2022-05-10 09:19 | NUR ---
PATIENT HAS BEEN SCREENED AND CATEGORIZED MODERATE NUTRITION RISK. PATIENT WILL BE SEEN WITHIN 3-5 DAYS OF ADMISSION. REVIEWED BY MATTHEW SALDANA RD
[2022-05-10 12:00] VITALS: BP 128/87
--- NOTE | 2022-05-10 15:16 | NUR ---
STARTED IV ON THE LEFT FOREARM WITH 20G PT STABLE URINATED 1000CC OUT.[email or web address]
--- NOTE | 2022-05-10 15:19 | NUR ---
DC PLANNIN YRS OLD MALE PATIENT WAS ADMITTED FROM HOME WITH A DX OF CHF EXACERBATION, HYPOXIC RESPIRATORY FAILURE. PATIENT HAS A HX OF CHF, HTN AND HLD. CXR SHOWED PLEURAL EFFUSION. RAPID COVID TEST NEGATIVE. ON O2 2L/NC SATING 98%. ADMINISTERED IV LASIX AND CONTINUED HOME MEDS. CONSULTED WITH DATAPOWER CONSULTANT. DC PLAN TO RETURN HOME WHEN STABLE. CM TO FOLLOW
[2022-05-10 16:00] VITALS: BP_SYST 112; BP_DIAS 72; BP_DIAS 74
--- NOTE | 2022-05-10 19:12 | NUR ---
GAVE REPOT TO THE NIGHT NURSE.[email or web address]
--- NOTE | 2022-05-10 19:13 | NUR ---
RECEIVED PT FROM MORNING SHIFT NURSE. PT IS AOX4, AMBULATORY, ABLE TO VERBALIZE NEEDS AND ABLE TO FOLLOW COMMAND. PT IS ON 2L NC AND ON CARDIAC DIET. PT HAS IV ON LEFT AC GAUGE 20, SALINE LOCK AND RIGHT FOREARM GAUGE 20 SALINE LOCK. PT SKIN IS INTACT. NO COMPLAIN OF PAIN AT THIS TIME. NO S/S OF RESPIRATORY DISTRESS NOTED. ALL SAFETY MEASURES IMPLEMENTED. BED IN LOW POSITION, BED WHEELS ON LOCK AND CALL LIGHT WITHIN REACH.
[2022-05-10 20:00] VITALS: BP 127/84
[2022-05-10 20:02] LABS: BARBITURATE, URINE NEGATIVE ng/ml (NEG <=200); BENZODIAZEPINE, URINE NEGATIVE ng/mL (NEG <=200)
[2022-05-10 20:03] LABS: CANNABINOID, URINE POSITIVE ng/mL (NEG <=50); COCAINE, URINE NEGATIVE ng/mL (NEG <=300); OPIATE, URINE POSITIVE ng/mL (NEG <=2000); PHENCYCLIDINE SCREEN,URINE NEGATIVE ng/mL (NEG <=25)
--- NOTE | 2022-05-10 20:48 | NUR ---
ALL SCHEDULED AND PRESCRIBED MEDICATION WAS GIVEN TO PT PER MD ORDER. ALL SAFETY MEASURES IMPLEMENTED. BED IN LOW POSITION, BED WHEELS ON LOCK AND CALL LIGHT WITHIN REACH.
[2022-05-10] MEDS ORDERED: ATORVASTATIN 20 MG TAB PO SCH (21:00)
--- NOTE | 2022-05-10 22:00 | NUR ---
PT WAS GIVEN CRACKERS PER PT REQUEST. PT DENIES PAIN AND NO S/S OF RESPIRATORY DISTRESS NOTED. ALL SAFETY MEASURES IMPLEMENTED. BED IN LOW POSITION, BED WHEELS ON LOCK AND CALL LIGHT WITHIN REACH.
[2022-05-11] VITALS: BP 117/87
--- NOTE | 2022-05-11 | NUR ---
PT IS ON SLEEP. CHEST RISE AND FALL SYMMETRICALLY NOTED. RESPIRATION IS EVEN AND UNLABORED. ALL SAFETY MEASURES IMPLEMENTED. BED IN LOW POSITION, BED WHEELS ON LOCK AND CALL LIGHT WITHIN REACH.
--- NOTE | 2022-05-11 02:00 | NUR ---
CHECKED THE PT STILL ON SLEEP. CHEST RISE AND SYMMETRICALLY NOTED. RESPIRATION IS EVEN AND UNLABORED. ALL SAFETY MEASURES IMPLEMENTED. BED IN LOW POSITION, BED WHEELS ON LOCK AND CALL LIGHT WITHIN REACH.
[2022-05-11 04:00] VITALS: BP 110/68
--- NOTE | 2022-05-11 04:00 | NUR ---
WARM BLANKET WAS GIVEN TO PT. PT DENIES PAIN. NO S/S OF RESPIRATORY DISTRESS NOTED. ALL SAFETY MEASURES IMPLEMENTED. BED IN LOW POSITION, BED WHEELS ON LOCK AND CALL LIGHT WITHIN REACH.
[2022-05-11 06:01] LABS: EOSINOPHILS # (AUTO) 0.2 K/uL (0-0.4); HEMATOCRIT 46.7 % (36-52); HEMOGLOBIN 15.1 g/dL (12.0-18.0); LYMPHOCYTES % (AUTO) 32.3 % (20.5-51.1); MEAN CORPUSCULAR HEMOGLOBIN 25 pg (27-31); MEAN CORPUSCULAR HGB CONC 32 g/dL (33-37); MEAN CORPUSCULAR VOLUME 77.2 fL (80-94); MONOCYTES # (AUTO) 1.1 K/uL (0.8-1.0); MONOCYTES % (AUTO) 32.6 % (1.7-9.3); NEUTROPHILS # (AUTO) 0.9 K/uL (1.8-7.7); NEUTROPHILS % (AUTO) 28.1 % (42.2-75.2); PLATELET COUNT (AUTO) 182 K/uL (140-450); RED BLOOD CELL COUNT(AUTO) 6.05 MIL/uL (4.20-6.10); RED CELL DISTRIBUTION WIDTH 21.6 % (11.6-13.7); WHITE BLOOD COUNT (AUTO) 3.2 K/uL (4.8-10.8)
[2022-05-11 06:06] LABS: ANION GAP 10.5 (8-16); CARBON DIOXIDE 30.1 mmol/L (21-32); CREATININE 1.6 mg/dL (0.6-1.3); POTASSIUM 3.6 mmol/L (3.5-5.1)
--- NOTE | 2022-05-11 07:03 | NUR ---
receive the patinet from multiple slide operator levar Pastrana in rm [id number] admitting diagnosis of congestive heart failure exacerbation . will continue to monitor
--- NOTE | 2022-05-11 07:23 | NUR ---
PT IS STABLE. ENDORSED PT TO MORNING SHIFT NURSE FOR CONTINUITY OF CARE.
[2022-05-11] MEDS ORDERED: CARV3.122 PO (08:20)
[2022-05-11] MEDS ORDERED: carvediloL 6.25 MG TAB PO SCH (09:00)
[2022-05-11] MEDS: DOCUSATE SODIUM 100 MG GELCAP PO SCH (09:09)
[2022-05-11] MEDS: ECOTRIN 81 MG TABEC PO SCH (09:10)
[2022-05-11] MEDS: APIXABAN 2.5 MG TAB PO SCH (09:11)
--- NOTE | 2022-05-11 09:12 | NUR ---
FOUND PATIENT ON NASAL CANNULA - NO DISTRESS NOTED - WILL ATTEMPT OXYGEN CHALLENGE TO WEAN OFF O2
[2022-05-11] MEDS: PANTOPRAZOLE 40 MG TABEC PO SCH (09:16)
[2022-05-11] MEDS: FUROSEMIDE 40 MG/4 ML VIAL IVP SCH (09:16)
--- NOTE | 2022-05-11 09:30 | NUR ---
patient magnetic resonance of the brain from [facility] yesterday was within normal limits . ready to be discharge home
[2022-05-11 11:13] VITALS: BP 129/91
--- NOTE | 2022-05-11 11:17 | NUR ---
WEANED PT TO ROOM AIR - NO RESP DISTRESS NOTED
--- NOTE | 2022-05-11 11:24 | NUR ---
discharge the patient in the stable condition. no sign and symptom fo respiratory distress . no complain of pain at this time . brought to the lobby thru a wheelchair to waiting Uber ride to patient home
--- NOTE | 2022-05-14 16:12 | NUR ---
CALLED [facility] LOCATED AT [address] [id number]. SPOKE WITH OSMAR WHO HELPED ME SCHEDULE A FOLLOW UP APPOINTMENT FOR 05/17/2022 AT [id number]. CALLED PATIENT WHO DIDN'T ANSWER AND THERE IS NO VOICE MAIL BOX, CALLED YARED WHO SAID SHE HAS NO CONTACT WITH HER UNCLE AND DOESN'T WANT ANY, THEN CALLED JALEN WHO I WAS ALSO UNABLE TO GET A HOLD OF SO MESSAGE WAS LEFT REGARDING THE ABOVE INFORMATION WELL PROVIDING THE [facility] TRANSPORT NUMBER TO SET UP TRANSPORTATION FOR DOCTOR OFFICE.
== END 2022-05-11 11:59 | disposition home or self-care (01) | DRG 812 ==
LOC: MED 19:25 → MTU 22:57 → OBSVTOIN 22:57 → MTU 05-10 01:08
PROVIDERS: ADMIT Student in an Organized Health Care Education/Training Program; ATTEND Student in an Organized Health Care Education/Training Program
DX: T43.651A Poisoning by methamphetamines accidental (unintentional), initial encounter (principal); I50.23 Acute on chronic systolic (congestive) heart failure; E44.0 Moderate protein-calorie malnutrition; I42.7 Cardiomyopathy due to drug and external agent; I13.0 Hypertensive heart and chronic kidney disease with heart failure and stage 1 through stage 4 chronic kidney disease, or unspecified chronic kidney disease; Z79.01 Long term (current) use of anticoagulants; N18.9 Chronic kidney disease, unspecified; Z20.822 Contact with and (suspected) exposure to COVID-19; E78.5 Hyperlipidemia, unspecified; Z88.8 Allergy status to other drugs, medicaments and biological substances; Z79.899 Other long term (current) drug therapy; Z82.49 Family history of ischemic heart disease and other diseases of the circulatory system; Y92.89 Other specified places as the place of occurrence of the external cause; Z91.14 Patient's other noncompliance with medication regimen; Z86.711 Personal history of pulmonary embolism
CPT/HCPCS: 36415; 71045; 80048; 80053; 80305; 83690; 83880; 84484; 85025; 85379; 87081; 96374; 99285; J1940; J2270

== ENCOUNTER 2022-07-02 19:08 | Inpatient (IN) | payer OTHER ==
[~2022-07-02] VITALS: Ht 175.3 cm; Wt 74.8 kg
[2022-07-02 19:58] VITALS: BP 136/96
[2022-07-02 22:19] LABS: BASOPHILS # (AUTO) 0.1 K/uL (0.00-0.22); BASOPHILS % (AUTO) 1.8 % (0.0-2.0); EOSINOPHILS # (AUTO) 0.3 K/uL (0-0.4); EOSINOPHILS % (AUTO) 5.2 % (0.0-4.0); HEMATOCRIT 40.8 % (36-52); HEMOGLOBIN 13.3 g/dL (12.0-18.0); LYMPHOCYTES # (AUTO) 1.4 K/uL (2.0-11.5); LYMPHOCYTES % (AUTO) 26.4 % (20.5-51.1); MEAN CORPUSCULAR HEMOGLOBIN 26 pg (27-31); MEAN CORPUSCULAR HGB CONC 33 g/dL (33-37); MEAN CORPUSCULAR VOLUME 80.6 fL (80-94); MONOCYTES # (AUTO) 0.8 K/uL (0.8-1.0); MONOCYTES % (AUTO) 16.1 % (1.7-9.3); NEUTROPHILS # (AUTO) 2.7 K/uL (1.8-7.7); NEUTROPHILS % (AUTO) 50.5 % (42.2-75.2); PLATELET COUNT (AUTO) 207 K/uL (140-450); RED BLOOD CELL COUNT(AUTO) 5.06 MIL/uL (4.20-6.10); RED CELL DISTRIBUTION WIDTH 23.2 % (11.6-13.7); WHITE BLOOD COUNT (AUTO) 5.3 K/uL (4.8-10.8)
[2022-07-02 22:33] LABS: ALBUMIN 3.3 g/dL (3.4-5.0); ANION GAP 9.1 (8-16); CARBON DIOXIDE 29.5 mmol/L (21-32); CREATININE 1.7 mg/dL (0.6-1.3); POTASSIUM 4.6 mmol/L (3.5-5.1)
[2022-07-02 23:03] LABS: TOTAL BILIRUBIN 1.5 mg/dL (0.0-1.0)
[2022-07-03] MEDS ORDERED: MORPHINE SULFATE 4 MG/ML SYR IVP ONE (02:35)
[2022-07-03] MEDS ORDERED: NITROGLYCERIN 2% 1 GM PKT TP ONE (02:35)
[2022-07-03] MEDS ORDERED: ASPIRIN 325 MG TAB PO ONE (02:35)
[2022-07-03] MEDS ORDERED: MAGNESIUM OXIDE 400 MG TAB PO PRN (03:15)
[2022-07-03] MEDS ORDERED: ONDANSETRON 4 MG/2 ML VIAL IVP PRN (03:15)
[2022-07-03] MEDS ORDERED: KCL 20 MEQ IN 100 mL PREMIX 200 ML IV PRN (03:15)
[2022-07-03] MEDS ORDERED: MAG SULF 2000 MG/WATER PREMIX 50 ML IV PRN (03:15)
[2022-07-03] MEDS ORDERED: HYDROcodone/APAP 5/325 MG 1 TAB TAB PO PRN (03:15)
[2022-07-03] MEDS ORDERED: ACETAMINOPHEN 325 MG TAB PO PRN (03:15)
[2022-07-03] MEDS ORDERED: POTASSIUM CHLORIDE 10 MEQ TABER PO PRN (03:15)
[2022-07-03 08:00] VITALS: BP 134/85
[2022-07-03] MEDS: DOCUSATE SODIUM 100 MG GELCAP PO SCH (09:36)
[2022-07-03 12:00] VITALS: BP 134/93
[2022-07-03 14:18] LABS: BARBITURATE, URINE NEGATIVE ng/ml (NEG <=200); BENZODIAZEPINE, URINE NEGATIVE ng/mL (NEG <=200); CANNABINOID, URINE POSITIVE ng/mL (NEG <=50); COCAINE, URINE NEGATIVE ng/mL (NEG <=300); PHENCYCLIDINE SCREEN,URINE NEGATIVE ng/mL (NEG <=25)
[2022-07-03 14:19] LABS: OPIATE, URINE POSITIVE ng/mL (NEG <=2000)
[2022-07-03 16:00] VITALS: BP 131/86
[2022-07-03] MEDS ORDERED: FUROSEMIDE 40 MG/4 ML VIAL IVP SCH (18:16)
[2022-07-03 20:00] VITALS: BP 128/82
[2022-07-03] MEDS: MORPHINE SULFATE 4 MG/ML SYR IVP PRN (20:05)
[2022-07-03] MEDS: carvediloL 6.25 MG TAB PO SCH (20:06)
[2022-07-04] VITALS: BP 131/89
[2022-07-04 04:00] VITALS: BP 117/84
[2022-07-04] MEDS: MORPHINE SULFATE 4 MG/ML SYR IVP PRN (05:46)
[2022-07-04 07:05] LABS: BASOPHILS # (AUTO) 0.1 K/uL (0.00-0.22); BASOPHILS % (AUTO) 0.9 % (0.0-2.0); EOSINOPHILS # (AUTO) 0.4 K/uL (0-0.4); EOSINOPHILS % (AUTO) 7.2 % (0.0-4.0); HEMATOCRIT 40.2 % (36-52); LYMPHOCYTES # (AUTO) 1.4 K/uL (2.0-11.5); LYMPHOCYTES % (AUTO) 22.9 % (20.5-51.1); MEAN CORPUSCULAR HEMOGLOBIN 26 pg (27-31); MEAN CORPUSCULAR HGB CONC 32 g/dL (33-37); MEAN CORPUSCULAR VOLUME 80.1 fL (80-94); MONOCYTES % (AUTO) 16.3 % (1.7-9.3); NEUTROPHILS # (AUTO) 3.2 K/uL (1.8-7.7); NEUTROPHILS % (AUTO) 52.7 % (42.2-75.2); PLATELET COUNT (AUTO) 215 K/uL (140-450); RED BLOOD CELL COUNT(AUTO) 5.02 MIL/uL (4.20-6.10); RED CELL DISTRIBUTION WIDTH 23.2 % (11.6-13.7)
[2022-07-04 07:11] LABS: ALBUMIN 2.8 g/dL (3.4-5.0); ANION GAP 10.1 (8-16); CARBON DIOXIDE 29.3 mmol/L (21-32); CREATININE 1.5 mg/dL (0.6-1.3); POTASSIUM 4.4 mmol/L (3.5-5.1); TOTAL BILIRUBIN 1.2 mg/dL (0.0-1.0)
[2022-07-04 08:00] VITALS: BP 117/84
[2022-07-04] MEDS ORDERED: LOSARTAN 25 MG TAB PO SCH (09:00)
[2022-07-04] MEDS ORDERED: SPIRONOLACTONE 25 MG TAB PO SCH (09:00)
[2022-07-04] MEDS: FUROSEMIDE 40 MG/4 ML VIAL IVP SCH ×2 (09:19→16:57)
[2022-07-04] MEDS: carvediloL 6.25 MG TAB PO SCH (09:22)
[2022-07-04] MEDS: DOCUSATE SODIUM 100 MG GELCAP PO SCH (09:22)
[2022-07-04 12:00] VITALS: BP 97/71
[2022-07-04 16:00] VITALS: BP 124/82
[2022-07-04 17:12] VITALS: BP 124/82
== END 2022-07-04 18:42 | disposition home or self-care (01) | DRG 194 ==
LOC: MED 19:08 → MTU 07-03 03:20
PROVIDERS: ADMIT Student in an Organized Health Care Education/Training Program; ATTEND Student in an Organized Health Care Education/Training Program
DX: I13.0 Hypertensive heart and chronic kidney disease with heart failure and stage 1 through stage 4 chronic kidney disease, or unspecified chronic kidney disease (principal); J96.01 Acute respiratory failure with hypoxia; D84.9 Immunodeficiency, unspecified; N17.9 Acute kidney failure, unspecified; I50.23 Acute on chronic systolic (congestive) heart failure; E87.70 Fluid overload, unspecified; I42.8 Other cardiomyopathies; F15.10 Other stimulant abuse, uncomplicated; E78.5 Hyperlipidemia, unspecified; Z20.822 Contact with and (suspected) exposure to COVID-19; N18.9 Chronic kidney disease, unspecified; Z72.0 Tobacco use; Z86.711 Personal history of pulmonary embolism; Z91.148 Patient's other noncompliance with medication regimen for other reason; Z88.1 Allergy status to other antibiotic agents; Z79.82 Long term (current) use of aspirin
CPT/HCPCS: 36415; 71045; 80053; 80305; 83735; 83880; 84484; 85025; 85379; 87081; 96374; 99285; J1644; J1940; J2270; J3475

== ENCOUNTER 2023-03-11 20:28 | Inpatient (IN) | payer OTHER ==
[~2023-03-11] VITALS: Ht 175.3 cm; Wt 80.3 kg
[~2023-03-11 20:28] MED LIST changes: +APIX5TAB PO; -ASPI-1856 PO; +ISOS10TA9 PO; +LOSA-269 PO; -LOSA25TA1 PO; +[UNRECOGNIZED DRUG - CODE] PO
[2023-03-11 20:32] VITALS: BP 127/89; PULSE 110; RESP 19; TEMP 96.9; O2SAT 96
[2023-03-11 21:16] LABS: BASOPHILS # (AUTO) 0.1 K/uL (0.00-0.22); BASOPHILS % (AUTO) 2.1 % (0.0-2.0); EOSINOPHILS # (AUTO) 0.1 K/uL (0-0.4); HEMOGLOBIN 13.9 g/dL (12.0-18.0); LYMPHOCYTES # (AUTO) 1.8 K/uL (2.0-11.5); LYMPHOCYTES % (AUTO) 31.4 % (20.5-51.1); MEAN CORPUSCULAR HEMOGLOBIN 27 pg (27-31); MEAN CORPUSCULAR HGB CONC 33 g/dL (33-37); MEAN CORPUSCULAR VOLUME 81.8 fL (80-94); MONOCYTES % (AUTO) 17.7 % (1.7-9.3); NEUTROPHILS # (AUTO) 2.6 K/uL (1.8-7.7); NEUTROPHILS % (AUTO) 46.8 % (42.2-75.2); PLATELET COUNT (AUTO) 279 K/uL (140-450); RED BLOOD CELL COUNT(AUTO) 5.14 MIL/uL (4.20-6.10); RED CELL DISTRIBUTION WIDTH 17.1 % (11.6-13.7); WHITE BLOOD COUNT (AUTO) 5.6 K/uL (4.8-10.8)
[2023-03-11] MEDS: NITROGLYCERIN 0.4 MG TAB SL ONE (21:23)
[2023-03-11] MEDS: FUROSEMIDE 40 MG/4 ML VIAL IVP ONE (21:23)
[2023-03-11 21:27] LABS: CALCIUM 8.9 mg/dL (8.5-10.1); CARBON DIOXIDE 26.5 mmol/L (21-32); POTASSIUM 4.5 mmol/L (3.5-5.1)
[2023-03-11 21:34] LABS: BILIRUBIN,DIRECT 0.3 mg/dL (0.0-0.3); TOTAL PROTEIN, SERUM 7.7 g/dL (6.4-8.2)
[2023-03-11 21:35] LABS: ALBUMIN 3.1 g/dL (3.4-5.0)
[2023-03-11 23:08] LABS: AMPHETAMINE, URINE POSITIVE ng/ml (NEG <=1000); BARBITURATE, URINE NEGATIVE ng/ml (NEG <=200); BENZODIAZEPINE, URINE NEGATIVE ng/mL (NEG <=200); CANNABINOID, URINE POSITIVE ng/mL (NEG <=50); COCAINE, URINE NEGATIVE ng/mL (NEG <=300); OPIATE, URINE NEGATIVE ng/mL (NEG <=2000); PHENCYCLIDINE SCREEN,URINE NEGATIVE ng/mL (NEG <=25)
[2023-03-11] MEDS ORDERED: HYDROcodone/APAP 5/325 MG 1 TAB TAB PO PRN (23:40)
[2023-03-11] MEDS ORDERED: MORPHINE SULFATE 4 MG/ML SYR IVP PRN (23:40)
[2023-03-11] MEDS ORDERED: ONDANSETRON 4 MG/2 ML VIAL IVP PRN (23:40)
[2023-03-11] MEDS ORDERED: ACETAMINOPHEN 325 MG TAB PO PRN (23:40)
[2023-03-12] MEDS: MORPHINE SULFATE 4 MG/ML SYR IVP ONE (00:09)
[2023-03-12] MEDS ORDERED: FURO-570 PO (03:22)
[2023-03-12] MEDS ORDERED: ALBU0.0912 IH (03:22)
[2023-03-12] MEDS ORDERED: ASPI-1822 PO (03:22)
[2023-03-12 07:18] LABS: BASOPHILS # (AUTO) 0.1 K/uL (0.00-0.22); BASOPHILS % (AUTO) 1.9 % (0.0-2.0); EOSINOPHILS # (AUTO) 0.2 K/uL (0-0.4); EOSINOPHILS % (AUTO) 2.9 % (0.0-4.0); HEMATOCRIT 43.5 % (36-52); HEMOGLOBIN 14.4 g/dL (12.0-18.0); LYMPHOCYTES # (AUTO) 1.8 K/uL (2.0-11.5); LYMPHOCYTES % (AUTO) 31.2 % (20.5-51.1); MEAN CORPUSCULAR HEMOGLOBIN 27 pg (27-31); MEAN CORPUSCULAR HGB CONC 33 g/dL (33-37); MEAN CORPUSCULAR VOLUME 82.3 fL (80-94); MONOCYTES # (AUTO) 0.9 K/uL (0.8-1.0); MONOCYTES % (AUTO) 15.2 % (1.7-9.3); NEUTROPHILS # (AUTO) 2.8 K/uL (1.8-7.7); NEUTROPHILS % (AUTO) 48.8 % (42.2-75.2); PLATELET COUNT (AUTO) 286 K/uL (140-450); RED BLOOD CELL COUNT(AUTO) 5.28 MIL/uL (4.20-6.10); RED CELL DISTRIBUTION WIDTH 17.1 % (11.6-13.7); WHITE BLOOD COUNT (AUTO) 5.7 K/uL (4.8-10.8)
[2023-03-12 07:49] LABS: ANION GAP 12.2 (8-16); CALCIUM 8.8 mg/dL (8.5-10.1); CARBON DIOXIDE 26.1 mmol/L (21-32); CREATININE 1.8 mg/dL (0.6-1.3); POTASSIUM 4.3 mmol/L (3.5-5.1)
[2023-03-12 09:00] VITALS: PULSE 102; RESP 20; O2SAT 99
[2023-03-12] MEDS ORDERED: ENOXAPARIN 40 MG/0.4 ML SYR SUBQ SCH (09:00)
[2023-03-12 09:49] VITALS: PULSE 100
[2023-03-12] MEDS: ASPIRIN 81 MG TAB.CHEW PO SCH (10:22)
[2023-03-12] MEDS: ISOSORBIDE DINITRATE 10 MG TAB PO SCH (10:23)
[2023-03-12] MEDS: APIXABAN 2.5 MG TAB PO SCH (10:23)
[2023-03-12] MEDS: DOCUSATE SODIUM 100 MG GELCAP PO SCH (10:24)
[2023-03-12] MEDS: hydrALAZINE 10 MG TAB PO SCH (10:24)
[2023-03-12] MEDS: carvediloL 3.125 MG TAB PO SCH (10:25)
[2023-03-12] MEDS: PANTOPRAZOLE 40 MG TABEC PO SCH (10:25)
[2023-03-12] MEDS: FUROSEMIDE 40 MG/4 ML VIAL IVP SCH (10:28)
[2023-03-12 12:00] VITALS: BP 131/98; PULSE 96; RESP 18; TEMP 96.8; O2SAT 99
[2023-03-12 16:00] VITALS: BP 136/92; PULSE 96; RESP 18; TEMP 96.9; O2SAT 99
[2023-03-12 20:00] VITALS: BP 137/80; PULSE 96; RESP 18; TEMP 97.9; O2SAT 95
[2023-03-12] MEDS: ATORVASTATIN 20 MG TAB PO SCH (23:00)
[2023-03-13 04:00] VITALS: BP 124/87; PULSE 83; RESP 18; TEMP 98; O2SAT 95
[2023-03-13 05:26] LABS: BASOPHILS # (AUTO) 0.1 K/uL (0.00-0.22); BASOPHILS % (AUTO) 1.4 % (0.0-2.0); EOSINOPHILS # (AUTO) 0.3 K/uL (0-0.4); EOSINOPHILS % (AUTO) 5.1 % (0.0-4.0); HEMATOCRIT 42.4 % (36-52); HEMOGLOBIN 14.2 g/dL (12.0-18.0); LYMPHOCYTES # (AUTO) 1.6 K/uL (2.0-11.5); MEAN CORPUSCULAR HEMOGLOBIN 27 pg (27-31); MEAN CORPUSCULAR HGB CONC 33 g/dL (33-37); MEAN CORPUSCULAR VOLUME 81.8 fL (80-94); MONOCYTES # (AUTO) 0.9 K/uL (0.8-1.0); MONOCYTES % (AUTO) 15.1 % (1.7-9.3); NEUTROPHILS # (AUTO) 3.3 K/uL (1.8-7.7); NEUTROPHILS % (AUTO) 52.4 % (42.2-75.2); PLATELET COUNT (AUTO) 276 K/uL (140-450); RED BLOOD CELL COUNT(AUTO) 5.18 MIL/uL (4.20-6.10); RED CELL DISTRIBUTION WIDTH 17.2 % (11.6-13.7); WHITE BLOOD COUNT (AUTO) 6.2 K/uL (4.8-10.8)
[2023-03-13 05:47] LABS: ANION GAP 9.3 (8-16); CALCIUM 8.5 mg/dL (8.5-10.1); CARBON DIOXIDE 29.4 mmol/L (21-32); CREATININE 1.8 mg/dL (0.6-1.3); POTASSIUM 3.7 mmol/L (3.5-5.1)
[2023-03-13 08:00] VITALS: BP 131/85; PULSE 91; PULSE 97; RESP 17; TEMP 97.5; O2SAT 97
[2023-03-13] MEDS: SPIRONOLACTONE 25 MG TAB PO SCH (08:46)
[2023-03-13] MEDS: LOSARTAN 25 MG TAB PO SCH (08:47)
[2023-03-13] MEDS: POTASSIUM CHLORIDE 10 MEQ TABER PO PRN (09:09)
[2023-03-13] MEDS: MAGNESIUM OXIDE 400 MG TAB PO PRN (09:10)
[2023-03-13 11:13] VITALS: O2SAT 96
== END 2023-03-13 13:00 | disposition home or self-care (01) | DRG 194 ==
LOC: MED 20:28 → OBSVTOIN 03-12 00:10 → MTU 03-12 00:10
PROVIDERS: ADMIT Internal Medicine; ATTEND Internal Medicine
DX: I13.0 Hypertensive heart and chronic kidney disease with heart failure and stage 1 through stage 4 chronic kidney disease, or unspecified chronic kidney disease (principal); J96.20 Acute and chronic respiratory failure, unspecified whether with hypoxia or hypercapnia; I21.A1 Myocardial infarction type 2; E44.1 Mild protein-calorie malnutrition; N17.9 Acute kidney failure, unspecified; I50.23 Acute on chronic systolic (congestive) heart failure; E78.5 Hyperlipidemia, unspecified; N18.9 Chronic kidney disease, unspecified; F15.10 Other stimulant abuse, uncomplicated; Z88.1 Allergy status to other antibiotic agents; Z79.899 Other long term (current) drug therapy; Z68.26 Body mass index [BMI] 26.0-26.9, adult
CPT/HCPCS: 36415; 71045; 80048; 80076; 80305; 83735; 83880; 84484; 85025; 87081; 93005; 96374; 96375; 99285; J1940; J2270; Q0092

== ENCOUNTER 2023-04-30 00:09 | Inpatient (IN) | payer OTHER ==
[~2023-04-30] VITALS: Ht 172.7 cm; Wt 76.7 kg
[2023-04-30] VITALS (7 sets, daily range): BP systolic 136; BP diastolic 91; PULSE 90–102; RESP 16–28; TEMP 97.3; O2SAT 92–99
[~2023-04-30 00:09] MED LIST changes: +ALBU0.0912 IH; +ASPI-1822 PO; +FURO-570 PO; -FURO40TA9 PO; +LORazepam 2 MG/ML VIAL ONE
[2023-04-30] MEDS: ALBUTEROL 0.083% 2.5 MG/3 ML NEBU INH ONE (00:50)
[2023-04-30] MEDS: FUROSEMIDE 100 MG/10 ML VIAL IVP ONE (01:07)
[2023-04-30 01:13] LABS: BASOPHILS % (AUTO) 0.2 % (0.0-2.0); EOSINOPHILS # (AUTO) 0.1 K/uL (0-0.4); EOSINOPHILS % (AUTO) 0.6 % (0.0-4.0); HEMATOCRIT 41.3 % (36-52); LYMPHOCYTES # (AUTO) 0.7 K/uL (2.0-11.5); LYMPHOCYTES % (AUTO) 5.7 % (20.5-51.1); MEAN CORPUSCULAR HEMOGLOBIN 26 pg (27-31); MEAN CORPUSCULAR HGB CONC 31 g/dL (33-37); MEAN CORPUSCULAR VOLUME 81.3 fL (80-94); MONOCYTES # (AUTO) 1.8 K/uL (0.8-1.0); MONOCYTES % (AUTO) 15.3 % (1.7-9.3); NEUTROPHILS # (AUTO) 9.2 K/uL (1.8-7.7); NEUTROPHILS % (AUTO) 78.2 % (42.2-75.2); PLATELET COUNT (AUTO) 246 K/uL (140-450); RED BLOOD CELL COUNT(AUTO) 5.08 MIL/uL (4.20-6.10); RED CELL DISTRIBUTION WIDTH 19.1 % (11.6-13.7); WHITE BLOOD COUNT (AUTO) 11.8 K/uL (4.8-10.8)
[2023-04-30 01:28] LABS: INR 1.11 (0.8-1.2); PARTIAL THROMBOPLASTIN TIME 23.8 secs (22-35.6); PROTHROMBIN TIME 11.6 secs (10.8-13.4)
[2023-04-30 01:30] LABS: ALBUMIN 3.3 g/dL (3.4-5.0); ANION GAP 10.3 (8-16); CALCIUM 8.2 mg/dL (8.5-10.1); CARBON DIOXIDE 28.8 mmol/L (21-32); CREATININE 1.5 mg/dL (0.6-1.3); POTASSIUM 5.1 mmol/L (3.5-5.1); TOTAL BILIRUBIN 0.8 mg/dL (0.0-1.0); TOTAL PROTEIN, SERUM 6.3 g/dL (6.4-8.2)
[2023-04-30] MEDS ORDERED: ONDANSETRON 4 MG/2 ML VIAL IVP PRN (02:50)
[2023-04-30] MEDS ORDERED: KCL 20 MEQ IN 100 mL PREMIX 200 ML IV PRN (02:50)
[2023-04-30] MEDS ORDERED: AZITHROMYCIN 500 MG in DEXTROSE 5% 250 ML IV SCH (02:50)
[2023-04-30] MEDS ORDERED: LORazepam 1 MG TAB PO PRN (02:50)
[2023-04-30] MEDS ORDERED: MAG SULF 2000 MG/WATER PREMIX 50 ML IV PRN (02:50)
[2023-04-30] MEDS ORDERED: ZOLPIDEM 5 MG TAB PO PRN (02:50)
[2023-04-30] MEDS ORDERED: HYDROcodone/APAP 5/325 MG 1 TAB TAB PO PRN (02:50)
[2023-04-30] MEDS ORDERED: MORPHINE SULFATE 4 MG/ML SYR IVP PRN (02:50)
[2023-04-30] MEDS ORDERED: POTASSIUM CHLORIDE 10 MEQ TABER PO PRN (02:50)
[2023-04-30] MEDS ORDERED: ACETAMINOPHEN 325 MG TAB PO PRN (02:50)
[2023-04-30] MEDS: ALBUTEROL SULFATE/IPRATROPIU 3 ML SOL IH SCH (07:28)
[2023-04-30] MEDS ORDERED: FUROSEMIDE 40 MG/4 ML VIAL IVP ONE (07:56)
[2023-04-30] MEDS: FUROSEMIDE 40 MG/4 ML VIAL IVP SCH (08:08)
[2023-04-30] MEDS: MEDS-TO-BEDS MC SCH (21:16)
[2023-05-01] VITALS (10 sets, daily range): BP systolic 122–140; BP diastolic 62–92; PULSE 84–115; RESP 18–22; TEMP 97.2–98.1; O2SAT 95–99
[2023-05-01 07:50] LABS: ANION GAP 11.1 (8-16); CALCIUM 8.8 mg/dL (8.5-10.1); CARBON DIOXIDE 31.4 mmol/L (21-32); CREATININE 1.5 mg/dL (0.6-1.3); POTASSIUM 3.5 mmol/L (3.5-5.1)
[2023-05-01 08:08] LABS: BASOPHILS % (AUTO) 0.1 % (0.0-2.0); EOSINOPHILS # (AUTO) 0.1 K/uL (0-0.4); EOSINOPHILS % (AUTO) 1.1 % (0.0-4.0); HEMATOCRIT 45.9 % (36-52); LYMPHOCYTES # (AUTO) 1.6 K/uL (2.0-11.5); LYMPHOCYTES % (AUTO) 14.2 % (20.5-51.1); MEAN CORPUSCULAR HEMOGLOBIN 26 pg (27-31); MEAN CORPUSCULAR HGB CONC 33 g/dL (33-37); MEAN CORPUSCULAR VOLUME 79.5 fL (80-94); MONOCYTES # (AUTO) 1.7 K/uL (0.8-1.0); MONOCYTES % (AUTO) 15.7 % (1.7-9.3); NEUTROPHILS # (AUTO) 7.5 K/uL (1.8-7.7); NEUTROPHILS % (AUTO) 68.9 % (42.2-75.2); PLATELET COUNT (AUTO) 227 K/uL (140-450); RED BLOOD CELL COUNT(AUTO) 5.78 MIL/uL (4.20-6.10); RED CELL DISTRIBUTION WIDTH 19.9 % (11.6-13.7); WHITE BLOOD COUNT (AUTO) 10.9 K/uL (4.8-10.8)
[2023-05-02] VITALS (11 sets, daily range): BP systolic 103–120; BP diastolic 68–87; PULSE 63–116; RESP 16–22; TEMP 97–98.6; O2SAT 96–100
[2023-05-02 06:54] LABS: ANION GAP 12.9 (8-16); CALCIUM 8.5 mg/dL (8.5-10.1); CARBON DIOXIDE 31.9 mmol/L (21-32); CREATININE 1.6 mg/dL (0.6-1.3); POTASSIUM 3.8 mmol/L (3.5-5.1)
[2023-05-02 06:56] LABS: BASOPHILS % (AUTO) 0.2 % (0.0-2.0); EOSINOPHILS # (AUTO) 0.3 K/uL (0-0.4); EOSINOPHILS % (AUTO) 2.2 % (0.0-4.0); HEMATOCRIT 51.2 % (36-52); HEMOGLOBIN 16.9 g/dL (12.0-18.0); LYMPHOCYTES # (AUTO) 1.8 K/uL (2.0-11.5); LYMPHOCYTES % (AUTO) 14.8 % (20.5-51.1); MEAN CORPUSCULAR HEMOGLOBIN 26 pg (27-31); MEAN CORPUSCULAR HGB CONC 33 g/dL (33-37); MONOCYTES # (AUTO) 1.8 K/uL (0.8-1.0); MONOCYTES % (AUTO) 15.6 % (1.7-9.3); NEUTROPHILS # (AUTO) 7.9 K/uL (1.8-7.7); NEUTROPHILS % (AUTO) 67.2 % (42.2-75.2); PLATELET COUNT (AUTO) 246 K/uL (140-450); RED BLOOD CELL COUNT(AUTO) 6.48 MIL/uL (4.20-6.10); WHITE BLOOD COUNT (AUTO) 11.8 K/uL (4.8-10.8)
[2023-05-03] VITALS (9 sets, daily range): BP systolic 122–133; BP diastolic 78–93; PULSE 63–117; RESP 16–21; TEMP 97.5–98.1; O2SAT 98–100
[2023-05-03 06:37] LABS: BASOPHILS % (AUTO) 0.3 % (0.0-2.0); EOSINOPHILS # (AUTO) 0.2 K/uL (0-0.4); EOSINOPHILS % (AUTO) 1.8 % (0.0-4.0); HEMATOCRIT 50.5 % (36-52); HEMOGLOBIN 16.3 g/dL (12.0-18.0); LYMPHOCYTES # (AUTO) 1.7 K/uL (2.0-11.5); LYMPHOCYTES % (AUTO) 16.1 % (20.5-51.1); MEAN CORPUSCULAR HEMOGLOBIN 26 pg (27-31); MEAN CORPUSCULAR HGB CONC 32 g/dL (33-37); MEAN CORPUSCULAR VOLUME 79.6 fL (80-94); MONOCYTES # (AUTO) 1.6 K/uL (0.8-1.0); MONOCYTES % (AUTO) 14.8 % (1.7-9.3); NEUTROPHILS # (AUTO) 7.3 K/uL (1.8-7.7); PLATELET COUNT (AUTO) 222 K/uL (140-450); RED BLOOD CELL COUNT(AUTO) 6.34 MIL/uL (4.20-6.10); RED CELL DISTRIBUTION WIDTH 19.3 % (11.6-13.7); WHITE BLOOD COUNT (AUTO) 10.9 K/uL (4.8-10.8)
[2023-05-03 07:07] LABS: CALCIUM 8.5 mg/dL (8.5-10.1); CARBON DIOXIDE 32.7 mmol/L (21-32); CREATININE 1.6 mg/dL (0.6-1.3); POTASSIUM 4.7 mmol/L (3.5-5.1)
[2023-05-04] VITALS: BP 117/83; RESP 20; TEMP 98.5; O2SAT 100
[2023-05-04 05:14] VITALS: BP 121/80; PULSE 107; RESP 21; TEMP 98.3; O2SAT 100
[2023-05-04 06:40] LABS: BASOPHILS % (AUTO) 0.3 % (0.0-2.0); EOSINOPHILS # (AUTO) 0.2 K/uL (0-0.4); EOSINOPHILS % (AUTO) 2.8 % (0.0-4.0); HEMATOCRIT 53.6 % (36-52); HEMOGLOBIN 17.7 g/dL (12.0-18.0); LYMPHOCYTES # (AUTO) 1.7 K/uL (2.0-11.5); LYMPHOCYTES % (AUTO) 20.5 % (20.5-51.1); MEAN CORPUSCULAR HEMOGLOBIN 26 pg (27-31); MEAN CORPUSCULAR HGB CONC 33 g/dL (33-37); MEAN CORPUSCULAR VOLUME 79.4 fL (80-94); MONOCYTES # (AUTO) 1.3 K/uL (0.8-1.0); MONOCYTES % (AUTO) 14.9 % (1.7-9.3); NEUTROPHILS # (AUTO) 5.2 K/uL (1.8-7.7); NEUTROPHILS % (AUTO) 61.5 % (42.2-75.2); PLATELET COUNT (AUTO) 226 K/uL (140-450); RED BLOOD CELL COUNT(AUTO) 6.75 MIL/uL (4.20-6.10); RED CELL DISTRIBUTION WIDTH 19.9 % (11.6-13.7); WHITE BLOOD COUNT (AUTO) 8.4 K/uL (4.8-10.8)
[2023-05-04 07:15] LABS: ANION GAP 13.3 (8-16); CALCIUM 8.9 mg/dL (8.5-10.1); CARBON DIOXIDE 30.2 mmol/L (21-32); CREATININE 1.6 mg/dL (0.6-1.3); POTASSIUM 4.5 mmol/L (3.5-5.1)
[2023-05-04 08:06] VITALS: PULSE 95; RESP 20; TEMP 97.8; O2SAT 97
[2023-05-04 08:09] VITALS: PULSE 95; RESP 20; O2SAT 97
[2023-05-04] MEDS ORDERED: FURO-570 PO (14:32)
[2023-05-04 16:00] VITALS: BP 130/96; PULSE 110; RESP 20; TEMP 97.8; O2SAT 97
== END 2023-05-04 17:25 | disposition home or self-care (01) | DRG 140 ==
LOC: MED 00:09 → OBSVTOIN 02:53 → MTU 02:53
PROVIDERS: ADMIT Student in an Organized Health Care Education/Training Program; ATTEND Student in an Organized Health Care Education/Training Program
DX: J44.1 Chronic obstructive pulmonary disease with (acute) exacerbation (principal); J96.01 Acute respiratory failure with hypoxia; I50.23 Acute on chronic systolic (congestive) heart failure; R65.10 Systemic inflammatory response syndrome (SIRS) of non-infectious origin without acute organ dysfunction; I11.0 Hypertensive heart disease with heart failure; Z79.82 Long term (current) use of aspirin; Z79.51 Long term (current) use of inhaled steroids; Z79.899 Other long term (current) drug therapy
CPT/HCPCS: 36415; 71045; 80048; 80053; 83880; 84484; 85025; 85610; 85730; 87081; 93005; 94640; 96374; 99285; J1644; J1940; J7613; Q0092

== ENCOUNTER 2023-05-17 17:31 | Inpatient (IN) | payer OTHER ==
[~2023-05-17] VITALS: Ht 175.3 cm; Wt 74.4 kg
[~2023-05-17 17:31] MED LIST changes: -LORazepam 2 MG/ML VIAL ONE
[2023-05-17 17:47] VITALS: BP 131/94; PULSE 101; RESP 20; TEMP 98.8; O2SAT 96
[2023-05-17 19:23] LABS: BASOPHILS # (AUTO) 0.1 K/uL (0.00-0.22); BASOPHILS % (AUTO) 0.6 % (0.0-2.0); EOSINOPHILS # (AUTO) 0.2 K/uL (0-0.4); EOSINOPHILS % (AUTO) 1.9 % (0.0-4.0); HEMATOCRIT 39.3 % (36-52); HEMOGLOBIN 12.8 g/dL (12.0-18.0); LYMPHOCYTES # (AUTO) 1.4 K/uL (2.0-11.5); LYMPHOCYTES % (AUTO) 15.7 % (20.5-51.1); MEAN CORPUSCULAR HEMOGLOBIN 26 pg (27-31); MEAN CORPUSCULAR HGB CONC 33 g/dL (33-37); MEAN CORPUSCULAR VOLUME 80.8 fL (80-94); MONOCYTES # (AUTO) 1.2 K/uL (0.8-1.0); MONOCYTES % (AUTO) 13.1 % (1.7-9.3); NEUTROPHILS % (AUTO) 68.7 % (42.2-75.2); PLATELET COUNT (AUTO) 288 K/uL (140-450); RED BLOOD CELL COUNT(AUTO) 4.87 MIL/uL (4.20-6.10); RED CELL DISTRIBUTION WIDTH 22.8 % (11.6-13.7); WHITE BLOOD COUNT (AUTO) 8.8 K/uL (4.8-10.8)
[2023-05-17 19:47] LABS: ALBUMIN 2.7 g/dL (3.4-5.0); ANION GAP 12.4 (8-16); CALCIUM 7.8 mg/dL (8.5-10.1); CARBON DIOXIDE 25.6 mmol/L (21-32); CREATININE 1.4 mg/dL (0.6-1.3)
[2023-05-17] MEDS ORDERED: ACETAMINOPHEN 650 MG/20.3 ML UDC ONE (20:03)
[2023-05-17] MEDS: ACETAMINOPHEN EXTRA STRENGTH 500 MG TAB PO ONE (20:05)
[2023-05-17] MEDS ORDERED: BUMETANIDE 1 MG TAB PO ONE (20:10)
[2023-05-17] MEDS: ALBUTEROL SULFATE/IPRATROPIU 3 ML SOL IH ONE (20:35)
[2023-05-17 20:39] VITALS: PULSE 96; RESP 24; O2SAT 94
[2023-05-17 20:43] VITALS: PULSE 91; RESP 24; O2SAT 94
[2023-05-17] MEDS ORDERED: ONDANSETRON 4 MG/2 ML VIAL IVP PRN (20:55)
[2023-05-17] MEDS ORDERED: AZITHROMYCIN 500 MG in DEXTROSE 5% 250 ML IV SCH (20:55)
[2023-05-17] MEDS ORDERED: POTASSIUM CHLORIDE 10 MEQ TABER PO PRN (20:55)
[2023-05-17] MEDS ORDERED: MAG SULF 2000 MG/WATER PREMIX 50 ML IV PRN (20:55)
[2023-05-17] MEDS ORDERED: KCL 20 MEQ IN 100 mL PREMIX 200 ML IV PRN (20:55)
[2023-05-17] MEDS ORDERED: MAGNESIUM OXIDE 400 MG TAB PO PRN (20:55)
[2023-05-17] MEDS ORDERED: ACETAMINOPHEN 325 MG TAB PO PRN (20:55)
[2023-05-17] MEDS: FUROSEMIDE 20 MG/2 ML VIAL IVP ONE (20:59)
[2023-05-17] MEDS: methylPREDNISolone SS 125 MG/2 ML VIAL IVP ONE (21:01)
[2023-05-17] MEDS ORDERED: METO25TA PO (21:23)
[2023-05-17] MEDS ORDERED: ATOR40TA PO (21:23)
[2023-05-17] MEDS ORDERED: APIX5TAB PO (21:23)
[2023-05-17] MEDS ORDERED: CARV3.12 PO (21:23)
[2023-05-17] MEDS ORDERED: ISOS20TA PO (21:23)
[2023-05-18] VITALS (12 sets, daily range): BP systolic 119–141; BP diastolic 81–97; PULSE 50–106; RESP 18–26; TEMP 97–98.8; O2SAT 89–100
[2023-05-18] MEDS: methylPREDNISolone SS 40 MG/ML VIAL IVP SCH
[2023-05-18] MEDS: ALBUTEROL SULFATE/IPRATROPIU 3 ML SOL IH SCH (00:35)
[2023-05-18 04:04] LABS: FLU A ANTIGEN negative (NEGATIVE); FLU B ANTIGEN negative (NEGATIVE)
[2023-05-18 06:29] LABS: BASOPHILS % (AUTO) 0.3 % (0.0-2.0); EOSINOPHILS % (AUTO) 0.4 % (0.0-4.0); HEMATOCRIT 39.5 % (36-52); LYMPHOCYTES # (AUTO) 0.4 K/uL (2.0-11.5); LYMPHOCYTES % (AUTO) 5.6 % (20.5-51.1); MEAN CORPUSCULAR HEMOGLOBIN 26 pg (27-31); MEAN CORPUSCULAR HGB CONC 33 g/dL (33-37); MEAN CORPUSCULAR VOLUME 79.8 fL (80-94); MONOCYTES # (AUTO) 0.4 K/uL (0.8-1.0); MONOCYTES % (AUTO) 5.6 % (1.7-9.3); NEUTROPHILS # (AUTO) 6.8 K/uL (1.8-7.7); NEUTROPHILS % (AUTO) 88.1 % (42.2-75.2); PLATELET COUNT (AUTO) 306 K/uL (140-450); RED BLOOD CELL COUNT(AUTO) 4.95 MIL/uL (4.20-6.10); RED CELL DISTRIBUTION WIDTH 22.6 % (11.6-13.7); WHITE BLOOD COUNT (AUTO) 7.7 K/uL (4.8-10.8)
[2023-05-18 06:47] LABS: ANION GAP 12.4 (8-16); CALCIUM 8.3 mg/dL (8.5-10.1); CARBON DIOXIDE 26.8 mmol/L (21-32); CREATININE 1.4 mg/dL (0.6-1.3); POTASSIUM 4.2 mmol/L (3.5-5.1)
[2023-05-18 06:50] LABS: MAGNESIUM 1.9 mg/dL (1.8-2.4); PHOSPHORUS 4.1 mg/dL (2.5-4.9)
[2023-05-18] MEDS: BUDESONIDE 0.5 MG/2 ML NEBU INH SCH (07:57)
[2023-05-18] MEDS: HYDROcodone/APAP 5/325 MG 1 TAB TAB PO PRN (10:35)
[2023-05-18] MEDS: levoFLOXacin 500 MG TAB PO SCH (17:25)
[2023-05-18] MEDS: APIXABAN 2.5 MG TAB PO SCH (20:03)
[2023-05-18] MEDS: MEDS-TO-BEDS MC SCH (20:03)
[2023-05-19] VITALS (13 sets, daily range): BP systolic 124–137; BP diastolic 79–95; PULSE 65–111; RESP 16–23; TEMP 96.2–98; O2SAT 95–100
[2023-05-19 06:23] LABS: BASOPHILS % (AUTO) 0.1 % (0.0-2.0); HEMATOCRIT 39.1 % (36-52); HEMOGLOBIN 12.7 g/dL (12.0-18.0); LYMPHOCYTES # (AUTO) 0.4 K/uL (2.0-11.5); LYMPHOCYTES % (AUTO) 3.4 % (20.5-51.1); MEAN CORPUSCULAR HEMOGLOBIN 26 pg (27-31); MEAN CORPUSCULAR HGB CONC 33 g/dL (33-37); MEAN CORPUSCULAR VOLUME 80.5 fL (80-94); MONOCYTES % (AUTO) 7.8 % (1.7-9.3); NEUTROPHILS # (AUTO) 11.1 K/uL (1.8-7.7); NEUTROPHILS % (AUTO) 88.7 % (42.2-75.2); PLATELET COUNT (AUTO) 322 K/uL (140-450); RED BLOOD CELL COUNT(AUTO) 4.86 MIL/uL (4.20-6.10); RED CELL DISTRIBUTION WIDTH 22.5 % (11.6-13.7); WHITE BLOOD COUNT (AUTO) 12.5 K/uL (4.8-10.8)
[2023-05-19 06:48] LABS: ANION GAP 12.1 (8-16); CALCIUM 8.7 mg/dL (8.5-10.1); CARBON DIOXIDE 29.3 mmol/L (21-32); CREATININE 1.3 mg/dL (0.6-1.3); POTASSIUM 4.4 mmol/L (3.5-5.1)
[2023-05-19 07:01] LABS: MAGNESIUM 1.9 mg/dL (1.8-2.4); PHOSPHORUS 3.7 mg/dL (2.5-4.9)
[2023-05-19] MEDS: FUROSEMIDE 100 MG/10 ML VIAL IV SCH (12:29)
[2023-05-20] VITALS (8 sets, daily range): BP systolic 126–138; BP diastolic 76–87; PULSE 80–107; RESP 18–22; TEMP 97.3–97.8; O2SAT 95–99
[2023-05-20 05:53] LABS: ANION GAP 10.5 (8-16); CALCIUM 8.8 mg/dL (8.5-10.1); CARBON DIOXIDE 31.9 mmol/L (21-32); CREATININE 1.4 mg/dL (0.6-1.3); MAGNESIUM 1.8 mg/dL (1.8-2.4); PHOSPHORUS 4.5 mg/dL (2.5-4.9); POTASSIUM 4.4 mmol/L (3.5-5.1)
[2023-05-20 06:17] LABS: BASOPHILS % (AUTO) 0.2 % (0.0-2.0); HEMOGLOBIN 12.7 g/dL (12.0-18.0); LYMPHOCYTES # (AUTO) 0.5 K/uL (2.0-11.5); LYMPHOCYTES % (AUTO) 4.8 % (20.5-51.1); MEAN CORPUSCULAR HEMOGLOBIN 26 pg (27-31); MEAN CORPUSCULAR HGB CONC 33 g/dL (33-37); MEAN CORPUSCULAR VOLUME 80.3 fL (80-94); MONOCYTES # (AUTO) 0.6 K/uL (0.8-1.0); PLATELET COUNT (AUTO) 359 K/uL (140-450); RED BLOOD CELL COUNT(AUTO) 4.86 MIL/uL (4.20-6.10); RED CELL DISTRIBUTION WIDTH 22.8 % (11.6-13.7); WHITE BLOOD COUNT (AUTO) 11.1 K/uL (4.8-10.8)
[2023-05-20] MEDS: guaiFENesin/CODEINE 100/10MG 5 ML UDC ONE (12:39)
[2023-05-20] MEDS: methylPREDNISolone SS 40 MG/ML VIAL IVP SCH (12:40)
[2023-05-20] MEDS: FUROSEMIDE 40 MG/4 ML VIAL IVP SCH (17:14)
[2023-05-20] MEDS: carvediloL 3.125 MG TAB PO SCH (20:40)
[2023-05-21] VITALS (10 sets, daily range): BP systolic 110–126; BP diastolic 68–75; PULSE 64–103; RESP 18–21; TEMP 96.8–97.6; O2SAT 93–100
[2023-05-21] MEDS: guaiFENesin/CODEINE 100/10MG 5 ML UDC PO PRN (04:26)
[2023-05-21 05:24] LABS: BASOPHILS % (AUTO) 0.4 % (0.0-2.0); HEMATOCRIT 39.8 % (36-52); LYMPHOCYTES % (AUTO) 8.6 % (20.5-51.1); MEAN CORPUSCULAR HEMOGLOBIN 26 pg (27-31); MEAN CORPUSCULAR HGB CONC 33 g/dL (33-37); MEAN CORPUSCULAR VOLUME 80.5 fL (80-94); MONOCYTES % (AUTO) 8.4 % (1.7-9.3); NEUTROPHILS # (AUTO) 9.4 K/uL (1.8-7.7); NEUTROPHILS % (AUTO) 82.6 % (42.2-75.2); PLATELET COUNT (AUTO) 360 K/uL (140-450); RED BLOOD CELL COUNT(AUTO) 4.94 MIL/uL (4.20-6.10); RED CELL DISTRIBUTION WIDTH 21.8 % (11.6-13.7); WHITE BLOOD COUNT (AUTO) 11.4 K/uL (4.8-10.8)
[2023-05-21 06:20] LABS: MAGNESIUM 1.8 mg/dL (1.8-2.4)
[2023-05-21 08:19] LABS: ANION GAP 11.6 (8-16); CALCIUM 8.4 mg/dL (8.5-10.1); CARBON DIOXIDE 29.9 mmol/L (21-32); CREATININE 1.4 mg/dL (0.6-1.3); POTASSIUM 4.5 mmol/L (3.5-5.1)
[2023-05-21] MEDS: SPIRONOLACTONE 25 MG TAB PO SCH (09:23)
[2023-05-21] MEDS: ATORVASTATIN 20 MG TAB PO SCH (09:23)
[2023-05-21] MEDS: LOSARTAN 25 MG TAB PO SCH (09:24)
[2023-05-21] MEDS: ZOLPIDEM 5 MG TAB PO PRN (21:24)
[2023-05-22] VITALS (7 sets, daily range): BP systolic 130–134; BP diastolic 85–87; PULSE 80–98; RESP 18–20; TEMP 97.7–97.8; O2SAT 98–100
[2023-05-22 06:26] LABS: MAGNESIUM 1.9 mg/dL (1.8-2.4); PHOSPHORUS 4.6 mg/dL (2.5-4.9)
[2023-05-22 06:32] LABS: ANION GAP 11.6 (8-16); CALCIUM 8.2 mg/dL (8.5-10.1); CARBON DIOXIDE 32.8 mmol/L (21-32); CREATININE 1.3 mg/dL (0.6-1.3); POTASSIUM 4.4 mmol/L (3.5-5.1)
[2023-05-22 07:33] LABS: HEMATOCRIT 43.3 % (36-52); HEMOGLOBIN 14.2 g/dL (12.0-18.0); MEAN CORPUSCULAR HEMOGLOBIN 26 pg (27-31); MEAN CORPUSCULAR HGB CONC 33 g/dL (33-37); MEAN CORPUSCULAR VOLUME 79.4 fL (80-94); PLATELET COUNT (AUTO) 412 K/uL (140-450); RED BLOOD CELL COUNT(AUTO) 5.45 MIL/uL (4.20-6.10); RED CELL DISTRIBUTION WIDTH 21.7 % (11.6-13.7); WHITE BLOOD COUNT (AUTO) 11.9 K/uL (4.8-10.8)
[2023-05-22 08:24] LABS: BASOPHILS % (MANUAL) 0 % (0-2); EOSINOPHILS % (MANUAL) 0 % (0-4); LYMPHOCYTES % (MANUAL) 5 % (20-46); METAMYELOCYTES % 1 % (0-0); MONOCYTES % (MANUAL) 9 % (5-12)
[2023-05-22 08:25] LABS: ANISOCYTOSIS 2+; OVALOCYTES 1+; PLATELET ESTIMATE SLIGHTLY INCREASED; POLYCHROMASIA 1+; STOMATOCYTES 1+; TARGET CELLS 1+; TEAR DROP CELLS 1+
[2023-05-23] VITALS (7 sets, daily range): BP systolic 125–138; BP diastolic 69–90; PULSE 76–96; RESP 17–22; TEMP 96.7–97.6; O2SAT 97–100
[2023-05-23] MEDS: FUROSEMIDE 40 MG TAB PO SCH (16:26)
[2023-05-23] MEDS ORDERED: PRED20TA5 PO (18:06)
[2023-05-23] MEDS ORDERED: FURO-571 PO (18:06)
== END 2023-05-23 18:50 | disposition home or self-care (01) | DRG 194 ==
LOC: MED 17:31 → MMU 20:53 → UNDOADMOB 20:53 → OBSVTOIN 20:56 → MMU 20:56 → OBSVTOIN 05-19 16:29 → INTOOBSV 05-19 16:29
PROVIDERS: ADMIT Hospitalist; ATTEND Hospitalist
DX: I13.0 Hypertensive heart and chronic kidney disease with heart failure and stage 1 through stage 4 chronic kidney disease, or unspecified chronic kidney disease (principal); E43 Unspecified severe protein-calorie malnutrition; J44.1 Chronic obstructive pulmonary disease with (acute) exacerbation; J45.901 Unspecified asthma with (acute) exacerbation; I48.0 Paroxysmal atrial fibrillation; E78.5 Hyperlipidemia, unspecified; I50.23 Acute on chronic systolic (congestive) heart failure; Z20.822 Contact with and (suspected) exposure to COVID-19; N18.9 Chronic kidney disease, unspecified; F15.10 Other stimulant abuse, uncomplicated; Z79.899 Other long term (current) drug therapy; Z91.199 Patient's noncompliance with other medical treatment and regimen due to unspecified reason; Z86.711 Personal history of pulmonary embolism; Z88.1 Allergy status to other antibiotic agents; Z68.24 Body mass index [BMI] 24.0-24.9, adult
CPT/HCPCS: 36415; 71045; 80048; 80053; 83735; 83880; 84100; 84484; 85025; 87081; 93005; 94640; G0378; J1644; J1940; J2920; J2930; J7626; Q0092

== ENCOUNTER 2023-05-31 17:57 | Emergency (ER) | payer OTHER ==
[~2023-05-31] VITALS: Ht 170.2 cm; Wt 72.6 kg
[~2023-05-31 17:57] MED LIST changes: -FURO-570 PO; +FURO-571 PO; +METO25TA PO; +PRED20TA5 PO
[2023-05-31 18:13] VITALS: BP 101/62; PULSE 103; RESP 26; TEMP 97.2; O2SAT 100
[2023-05-31 20:03] VITALS: PULSE 98; RESP 21; O2SAT 98; O2SAT 99
[2023-05-31] MEDS: ALBUTEROL SULFATE/IPRATROPIU 3 ML SOL IH ONE (20:21)
[2023-05-31 20:22] VITALS: PULSE 101; RESP 24; O2SAT 98
[2023-05-31] MEDS: ALBUTEROL 0.083% 2.5 MG/3 ML NEBU INH ONE (20:22)
[2023-05-31] MEDS: predniSONE 20 MG TAB PO ONE (20:27)
[2023-05-31] MEDS: FUROSEMIDE 40 MG/4 ML VIAL IVP ONE (20:48)
[2023-05-31] MEDS ORDERED: SPIR25TA20 PO (21:52)
[2023-05-31] MEDS ORDERED: LOSA-269 PO (21:52)
[2023-05-31] MEDS ORDERED: FURO-570 PO (21:52)
[2023-05-31] MEDS ORDERED: PRED20TA5 PO (21:52)
[2023-05-31] MEDS ORDERED: [UNRECOGNIZED DRUG - CODE] PO (21:52)
[2023-05-31] MEDS ORDERED: CARV3.122 PO (21:52)
[2023-05-31] MEDS ORDERED: ALBU0.0912 IH (21:52)
[2023-05-31] MEDS ORDERED: ATOR40TA PO (21:52)
[2023-05-31] MEDS ORDERED: ISOS10TA9 PO (21:52)
[2023-05-31] MEDS ORDERED: PANT40EC56 PO (21:52)
[2023-05-31] MEDS ORDERED: APIX5TAB PO (21:52)
[2023-05-31] MEDS ORDERED: METO25TA PO (21:52)
[2023-05-31] MEDS: MORPHINE SULFATE 4 MG/ML SYR IVP ONE (22:00)
[2023-05-31 22:17] VITALS: BP 111/77; PULSE 97; RESP 16; O2SAT 99
== END 2023-05-31 22:15 | disposition home or self-care (01) ==
LOC: MED 17:57
DX: R06.02 Shortness of breath (principal); R07.9 Chest pain, unspecified; J45.909 Unspecified asthma, uncomplicated; R60.9 Edema, unspecified; I11.9 Hypertensive heart disease without heart failure; F17.200 Nicotine dependence, unspecified, uncomplicated; Z88.8 Allergy status to other drugs, medicaments and biological substances; Z79.899 Other long term (current) drug therapy
CPT/HCPCS: 71045; 93005; 94640; 96374; 96375; 99285; J1940; J2270; J7512; J7613

== ENCOUNTER 2023-08-20 07:35 | Inpatient (IN) | payer OTHER ==
[~2023-08-20] VITALS: Ht 175.3 cm; Wt 77.1 kg
[~2023-08-20 07:35] MED LIST changes: +FURO-570 PO
[2023-08-20 07:36] VITALS: BP 164/98; PULSE 106; RESP 22; TEMP 98; O2SAT 99
[2023-08-20 08:14] LABS: BASOPHILS % (AUTO) 0.9 % (0.0-2.0); EOSINOPHILS # (AUTO) 0.3 K/uL (0-0.4); EOSINOPHILS % (AUTO) 5.2 % (0.0-4.0); HEMATOCRIT 41.7 % (36-52); HEMOGLOBIN 13.8 g/dL (12.0-18.0); LYMPHOCYTES % (AUTO) 19.5 % (20.5-51.1); MEAN CORPUSCULAR HEMOGLOBIN 28 pg (27-31); MEAN CORPUSCULAR HGB CONC 33 g/dL (33-37); MEAN CORPUSCULAR VOLUME 85.7 fL (80-94); MONOCYTES # (AUTO) 0.9 K/uL (0.8-1.0); MONOCYTES % (AUTO) 16.3 % (1.7-9.3); NEUTROPHILS # (AUTO) 3.1 K/uL (1.8-7.7); NEUTROPHILS % (AUTO) 58.1 % (42.2-75.2); PLATELET COUNT (AUTO) 208 K/uL (140-450); RED BLOOD CELL COUNT(AUTO) 4.87 MIL/uL (4.20-6.10); RED CELL DISTRIBUTION WIDTH 19.8 % (11.6-13.7); WHITE BLOOD COUNT (AUTO) 5.3 K/uL (4.8-10.8)
[2023-08-20 08:35] LABS: ANION GAP 11.7 (8-16); CALCIUM 8.3 mg/dL (8.5-10.1); CARBON DIOXIDE 26.4 mmol/L (21-32); CREATININE 1.4 mg/dL (0.6-1.3); POTASSIUM 4.1 mmol/L (3.5-5.1)
[2023-08-20] MEDS: ONDANSETRON 4 MG/2 ML VIAL IVP ONE (08:46)
[2023-08-20] MEDS: FUROSEMIDE 40 MG/4 ML VIAL IVP SCH (08:48)
[2023-08-20] MEDS: MORPHINE SULFATE 2 MG/ML SYR IVP ONE (08:52)
[2023-08-20] MEDS ORDERED: NITROGLYCERIN 0.4 MG TAB SL ONE (09:34)
[2023-08-20] MEDS ORDERED: FUROSEMIDE 20 MG/2 ML VIAL IVP ONE (09:35)
[2023-08-20 10:05] LABS: INR 1.09 (0.8-1.2); PARTIAL THROMBOPLASTIN TIME 27.6 secs (22-35.6); PROTHROMBIN TIME 11.4 secs (10.8-13.4)
[2023-08-20 10:33] LABS: BARBITURATE, URINE NEGATIVE ng/ml (NEG <=200); BENZODIAZEPINE, URINE NEGATIVE ng/mL (NEG <=200)
[2023-08-20 10:34] LABS: COCAINE, URINE NEGATIVE ng/mL (NEG <=300); PHENCYCLIDINE SCREEN,URINE NEGATIVE ng/mL (NEG <=25)
[2023-08-20 10:35] LABS: AMPHETAMINE, URINE POSITIVE ng/ml (NEG <=1000); CANNABINOID, URINE POSITIVE ng/mL (NEG <=50); OPIATE, URINE POSITIVE ng/mL (NEG <=2000)
[2023-08-20] MEDS ORDERED: MAG SULF 2000 MG/WATER PREMIX 50 ML IV PRN (10:35)
[2023-08-20] MEDS ORDERED: POTASSIUM CHLORIDE 10 MEQ TABER PO PRN (10:35)
[2023-08-20] MEDS ORDERED: ZOLPIDEM 5 MG TAB PO PRN (10:35)
[2023-08-20] MEDS ORDERED: LORazepam 1 MG TAB PO PRN (10:35)
[2023-08-20] MEDS ORDERED: KCL 20 MEQ IN 100 mL PREMIX 200 ML IV PRN (10:35)
[2023-08-20] MEDS ORDERED: ONDANSETRON 4 MG/2 ML VIAL IVP PRN (10:35)
[2023-08-20] MEDS: IPRATROPIUM 0.02% 0.5 MG/2.5 ML NEBU INH ONE (10:44)
[2023-08-20] MEDS: ALBUTEROL 0.083% 2.5 MG/3 ML NEBU INH ONE (10:44)
[2023-08-20 10:45] VITALS: PULSE 106; RESP 23; O2SAT 97
[2023-08-20 11:44] VITALS: PULSE 109; RESP 28; O2SAT 98
[2023-08-20 12:00] VITALS: BP 140/87; PULSE 108; PULSE 92; RESP 38; TEMP 98; O2SAT 97
[2023-08-20] MEDS ORDERED: PANT40EC56 PO (15:10)
[2023-08-20] MEDS ORDERED: SPIR25TA20 PO (15:10)
[2023-08-20] MEDS ORDERED: CARV3.122 PO (15:10)
[2023-08-20] MEDS ORDERED: APIX5TAB PO (15:10)
[2023-08-20] MEDS ORDERED: LOSA-269 PO (15:10)
[2023-08-20] MEDS ORDERED: ATOR40TA PO (15:10)
[2023-08-20] MEDS ORDERED: ASPI-1822 PO (15:10)
[2023-08-20] MEDS ORDERED: METO25TA PO (15:10)
[2023-08-20] MEDS ORDERED: FURO-571 PO (15:10)
[2023-08-20] MEDS ORDERED: ISOS10TA9 PO (15:10)
[2023-08-20 16:00] VITALS: BP 135/103; PULSE 98; RESP 18; TEMP 96.8; O2SAT 96
[2023-08-20] MEDS: DOXYCYCLINE 100 MG CAP PO SCH (16:02)
[2023-08-20 20:00] VITALS: BP 146/95; PULSE 97; PULSE 98; RESP 19; TEMP 97; O2SAT 99
[2023-08-20] MEDS ORDERED: METOPROLOL 25 MG TAB PO SCH (21:00)
[2023-08-20] MEDS: carvediloL 3.125 MG TAB PO SCH (21:32)
[2023-08-20] MEDS: ATORVASTATIN 20 MG TAB PO SCH (21:33)
[2023-08-20] MEDS: MEDS-TO-BEDS MC SCH (21:38)
[2023-08-20] MEDS: APIXABAN 2.5 MG TAB PO SCH (21:39)
[2023-08-21] VITALS: BP 151/109; PULSE 89; PULSE 99; RESP 20; TEMP 97.6; O2SAT 95
[2023-08-21 04:00] VITALS: BP 148/103; PULSE 88; PULSE 91; RESP 20; TEMP 97.1; O2SAT 97
[2023-08-21 06:14] LABS: BASOPHILS % (AUTO) 0.5 % (0.0-2.0); EOSINOPHILS # (AUTO) 0.3 K/uL (0-0.4); EOSINOPHILS % (AUTO) 5.9 % (0.0-4.0); HEMOGLOBIN 14.5 g/dL (12.0-18.0); LYMPHOCYTES # (AUTO) 1.6 K/uL (2.0-11.5); LYMPHOCYTES % (AUTO) 30.1 % (20.5-51.1); MEAN CORPUSCULAR HEMOGLOBIN 29 pg (27-31); MEAN CORPUSCULAR HGB CONC 33 g/dL (33-37); MEAN CORPUSCULAR VOLUME 87.1 fL (80-94); MONOCYTES # (AUTO) 0.8 K/uL (0.8-1.0); MONOCYTES % (AUTO) 15.1 % (1.7-9.3); NEUTROPHILS # (AUTO) 2.6 K/uL (1.8-7.7); NEUTROPHILS % (AUTO) 48.4 % (42.2-75.2); PLATELET COUNT (AUTO) 241 K/uL (140-450); RED BLOOD CELL COUNT(AUTO) 5.05 MIL/uL (4.20-6.10); RED CELL DISTRIBUTION WIDTH 19.4 % (11.6-13.7); WHITE BLOOD COUNT (AUTO) 5.4 K/uL (4.8-10.8)
[2023-08-21 06:28] LABS: ALBUMIN 3.1 g/dL (3.4-5.0); ANION GAP 9.1 (8-16); CALCIUM 8.8 mg/dL (8.5-10.1); CARBON DIOXIDE 31.7 mmol/L (21-32); CREATININE 1.5 mg/dL (0.6-1.3); MAGNESIUM 1.6 mg/dL (1.8-2.4); POTASSIUM 4.8 mmol/L (3.5-5.1); TOTAL PROTEIN, SERUM 6.7 g/dL (6.4-8.2)
[2023-08-21 08:00] VITALS: BP 145/107; PULSE 100; PULSE 103; PULSE 93; PULSE 99; RESP 18; TEMP 97; O2SAT 98; O2SAT 99
[2023-08-21] MEDS: LOSARTAN 25 MG TAB PO SCH (08:50)
[2023-08-21] MEDS: ISOSORBIDE DINITRATE 10 MG TAB PO SCH (08:50)
[2023-08-21] MEDS: MAGNESIUM OXIDE 400 MG TAB PO PRN (08:50)
[2023-08-21] MEDS: SPIRONOLACTONE 25 MG TAB PO SCH (08:51)
[2023-08-21] MEDS: ACETAMINOPHEN 325 MG TAB PO PRN (08:51)
[2023-08-21] MEDS: DOCUSATE SODIUM 100 MG GELCAP PO SCH (08:52)
[2023-08-21 12:00] VITALS: BP 126/88; PULSE 91; PULSE 96; RESP 20; TEMP 96.8; O2SAT 95
[2023-08-21 16:00] VITALS: BP 118/89; PULSE 81; PULSE 87; RESP 18; TEMP 97.2; O2SAT 97
== END 2023-08-21 18:30 | disposition home or self-care (01) | DRG 194 ==
LOC: MED 07:35 → MTU 10:41 → MMU 10:41
PROVIDERS: ADMIT Hospitalist; ATTEND Hospitalist
DX: I11.0 Hypertensive heart disease with heart failure (principal); J96.01 Acute respiratory failure with hypoxia; E44.0 Moderate protein-calorie malnutrition; R65.10 Systemic inflammatory response syndrome (SIRS) of non-infectious origin without acute organ dysfunction; I42.7 Cardiomyopathy due to drug and external agent; Z79.01 Long term (current) use of anticoagulants; I48.20 Chronic atrial fibrillation, unspecified; I50.23 Acute on chronic systolic (congestive) heart failure; F19.20 Other psychoactive substance dependence, uncomplicated; J44.9 Chronic obstructive pulmonary disease, unspecified; Z91.199 Patient's noncompliance with other medical treatment and regimen due to unspecified reason; Z79.899 Other long term (current) drug therapy; Z68.25 Body mass index [BMI] 25.0-25.9, adult
CPT/HCPCS: 36415; 71045; 80048; 80053; 80305; 83735; 83880; 84484; 85025; 85610; 85730; 87081; 93005; 96374; 96375; 99285; J1940; J2270; J2405; J7613; J7644

== ENCOUNTER 2023-11-24 18:27 | Inpatient (IN) | payer OTHER ==
[~2023-11-24] VITALS: Ht 180.3 cm; Wt 73.5 kg
[~2023-11-24 18:27] MED LIST changes: -FURO-570 PO; -PRED20TA5 PO; -[UNRECOGNIZED DRUG - CODE] PO
[2023-11-24 18:32] VITALS: BP 151/104; PULSE 114; RESP 20; TEMP 99.1; O2SAT 95
[2023-11-24] MEDS: ALBUTEROL SULFATE/IPRATROPIU 3 ML SOL IH ONE (19:04)
[2023-11-24 19:06] VITALS: PULSE 111; PULSE 112; RESP 34; O2SAT 93; O2SAT 97
[2023-11-24 19:16] LABS: BASOPHILS # (AUTO) 0.1 K/uL (0.00-0.22); BASOPHILS % (AUTO) 0.9 % (0.0-2.0); EOSINOPHILS # (AUTO) 0.3 K/uL (0-0.4); EOSINOPHILS % (AUTO) 5.7 % (0.0-4.0); HEMATOCRIT 45.2 % (36-52); HEMOGLOBIN 14.8 g/dL (12.0-18.0); LYMPHOCYTES % (AUTO) 16.5 % (20.5-51.1); MEAN CORPUSCULAR HEMOGLOBIN 27 pg (27-31); MEAN CORPUSCULAR HGB CONC 33 g/dL (33-37); MEAN CORPUSCULAR VOLUME 82.3 fL (80-94); MONOCYTES # (AUTO) 1.1 K/uL (0.8-1.0); MONOCYTES % (AUTO) 17.9 % (1.7-9.3); NEUTROPHILS # (AUTO) 3.6 K/uL (1.8-7.7); PLATELET COUNT (AUTO) 235 K/uL (140-450); RED BLOOD CELL COUNT(AUTO) 5.49 MIL/uL (4.20-6.10); RED CELL DISTRIBUTION WIDTH 18.5 % (11.6-13.7)
[2023-11-24 19:41] LABS: ALBUMIN 3.2 g/dL (3.4-5.0); ANION GAP 10.9 (8-16); CALCIUM 8.5 mg/dL (8.5-10.1); CREATININE 1.5 mg/dL (0.6-1.3); POTASSIUM 3.9 mmol/L (3.5-5.1); TOTAL BILIRUBIN 1.2 mg/dL (0.0-1.0); TOTAL PROTEIN, SERUM 7.3 g/dL (6.4-8.2)
[2023-11-24 19:44] LABS: FLU A ANTIGEN negative (NEGATIVE); FLU B ANTIGEN NEGATIVE (NEGATIVE)
[2023-11-24 19:55] LABS: LACTIC ACID 0.8 mmol/L (0.4-2.0)
[2023-11-24] MEDS: FUROSEMIDE 20 MG/2 ML VIAL IVP ONE (20:07)
[2023-11-24] MEDS: ACETAMINOPHEN EXTRA STRENGTH 500 MG TAB PO ONE (20:08)
[2023-11-24] MEDS: methylPREDNISolone SS 125 MG/2 ML VIAL IVP ONE (21:25)
[2023-11-24] MEDS ORDERED: ALBUTEROL SULFATE/IPRATROPIU 3 ML SOL IH ONE (21:32)
[2023-11-24 21:40] VITALS: PULSE 92; RESP 18; O2SAT 96
[2023-11-24 21:47] LABS: AMPHETAMINE, URINE POSITIVE ng/ml (NEG <=1000); BARBITURATE, URINE NEGATIVE ng/ml (NEG <=200); BENZODIAZEPINE, URINE NEGATIVE ng/mL (NEG <=200)
[2023-11-24 21:48] LABS: CANNABINOID, URINE POSITIVE ng/mL (NEG <=50); COCAINE, URINE NEGATIVE ng/mL (NEG <=300); OPIATE, URINE NEGATIVE ng/mL (NEG <=2000); PHENCYCLIDINE SCREEN,URINE NEGATIVE ng/mL (NEG <=25)
[2023-11-25 06:29] LABS: EOSINOPHILS % (AUTO) 0.1 % (0.0-4.0); HEMATOCRIT 48.1 % (36-52); HEMOGLOBIN 15.9 g/dL (12.0-18.0); LYMPHOCYTES # (AUTO) 0.4 K/uL (2.0-11.5); LYMPHOCYTES % (AUTO) 9.5 % (20.5-51.1); MEAN CORPUSCULAR HEMOGLOBIN 27 pg (27-31); MEAN CORPUSCULAR HGB CONC 33 g/dL (33-37); MEAN CORPUSCULAR VOLUME 82.8 fL (80-94); MONOCYTES # (AUTO) 0.3 K/uL (0.8-1.0); MONOCYTES % (AUTO) 5.7 % (1.7-9.3); NEUTROPHILS # (AUTO) 3.8 K/uL (1.8-7.7); NEUTROPHILS % (AUTO) 83.7 % (42.2-75.2); PLATELET COUNT (AUTO) 238 K/uL (140-450); RED CELL DISTRIBUTION WIDTH 18.8 % (11.6-13.7); WHITE BLOOD COUNT (AUTO) 4.6 K/uL (4.8-10.8)
[2023-11-25 06:41] LABS: CALCIUM 8.7 mg/dL (8.5-10.1); CARBON DIOXIDE 27.1 mmol/L (21-32); CREATININE 1.5 mg/dL (0.6-1.3); MAGNESIUM 1.8 mg/dL (1.8-2.4); POTASSIUM 4.1 mmol/L (3.5-5.1); TOTAL BILIRUBIN 0.8 mg/dL (0.0-1.0); TOTAL PROTEIN, SERUM 7.5 g/dL (6.4-8.2)
[2023-11-25] MEDS: ACETAMINOPHEN 325 MG TAB PO PRN (07:27)
[2023-11-25] MEDS: carvediloL 6.25 MG TAB PO SCH (09:27)
[2023-11-25] MEDS: ATORVASTATIN 20 MG TAB PO SCH (09:27)
[2023-11-25] MEDS: APIXABAN 2.5 MG TAB PO SCH (09:27)
[2023-11-25] MEDS: ASPIRIN 81 MG TAB.CHEW PO SCH (09:28)
[2023-11-25] MEDS: SPIRONOLACTONE 25 MG TAB PO SCH (09:28)
[2023-11-25] MEDS: LOSARTAN 25 MG TAB PO SCH (09:28)
[2023-11-25] MEDS: FUROSEMIDE 40 MG/4 ML VIAL IVP SCH (09:29)
[2023-11-25 10:16] VITALS: PULSE 85; RESP 24; O2SAT 96
[2023-11-25 12:00] VITALS: BP 133/84; PULSE 78; PULSE 97; RESP 22; TEMP 97.8; O2SAT 98
[2023-11-25 16:00] VITALS: BP 141/84; PULSE 86; PULSE 89; RESP 19; TEMP 98.4; O2SAT 96
[2023-11-25 20:00] VITALS: BP 134/92; PULSE 68; PULSE 93; RESP 19; TEMP 97.6; O2SAT 96
[2023-11-25 20:33] VITALS: O2SAT 97
[2023-11-25] MEDS: MEDS-TO-BEDS MC SCH (21:00)
[2023-11-25 23:13] VITALS: O2SAT 95
[2023-11-26] VITALS (8 sets, daily range): BP systolic 121–133; BP diastolic 81–96; PULSE 63–98; RESP 17–22; TEMP 96.9–98; O2SAT 96–99
[2023-11-26] MEDS: ALBUTEROL 0.083% 2.5 MG/3 ML NEBU INH PRN (00:15)
== END 2023-11-26 13:30 | disposition home or self-care (01) | DRG 194 ==
LOC: MED 18:27 → MTU 21:27 → MED 21:27 → MTU 11-25 05:39
PROVIDERS: ADMIT Hospitalist; ATTEND Hospitalist
DX: I11.0 Hypertensive heart disease with heart failure (principal); R65.10 Systemic inflammatory response syndrome (SIRS) of non-infectious origin without acute organ dysfunction; E44.0 Moderate protein-calorie malnutrition; J45.901 Unspecified asthma with (acute) exacerbation; I50.43 Acute on chronic combined systolic (congestive) and diastolic (congestive) heart failure; Z20.822 Contact with and (suspected) exposure to COVID-19; F15.10 Other stimulant abuse, uncomplicated; Z79.899 Other long term (current) drug therapy; Z88.8 Allergy status to other drugs, medicaments and biological substances; Z68.22 Body mass index [BMI] 22.0-22.9, adult
CPT/HCPCS: 36415; 71045; 80053; 80305; 83605; 83735; 83880; 84484; 85025; 87040; 87081; 93005; 94640; 96374; 96375; 99285; J1940; J2919; J7613; Q0092